=== PATIENT | male | born 1935 | race Caucasian/White ===

== ENCOUNTER 2021-11-03 16:59 | Inpatient (IN) | payer MEDICARE, SELFPAY ==
--- NOTE | ~2021-11-03 | XR_ITS ---
EXAMINATION: XR chest 1V portable DATE: 11/10/2021 05:49 INDICATION: Pneumonia TECHNIQUE: frontal view of the chest was obtained. COMPARISON: Chest radiograph dated 11/09/2021 FINDINGS: Small lung volumes particularly on the right with persistent elevation of the right hemidiaphragm. rspace opacities in the left mid and bilateral lower lung zones. Interval improvement in the more dif fuse interstitial opacities which likely represented pulmonary edema. Cardiomegaly. Venous sternotomy and aortic valve replacement. Unchanged percutaneous cholecystostomy tube. Decrease in the prior pro minent gaseous distention of the stomach. IMPRESSION: 1. Interval improvement in the diffuse bilateral interstitial likely pulmonary edema with residual mo re patchy airspace opacities in the lower lungs which could represent residual pulmonary edema, atele ctasis or pneumonia. 2. Cardiomegaly. Reviewed, dictated and finalized at location A. IMPRESSION: 1. Interval improvement in the diffuse bilateral interstitial likely pulmonary edema with residual more patchy airspace opacities in the lower lungs which cou ld represent residual pulmonary edema, atelectasis or pneumonia. 2. Cardiomegaly.
--- NOTE | ~2021-11-03 | NM_ITS ---
EXAMINATION: NM hepatobiliary w pharm DATE: 11/06/2021 14:11 INDICATION: Acute cholecystitis. COMPARISON: CT 11/03/2021, ultrasound 11/04/2021 TECHNIQUE: 4.9 mCi Tc-99m mebrofenin (Choletec) was administered intravenously. Scintigraphic images of the abdomen were obtained for one hour. Then, 2 mg morphine IV was administered, and imaging was continued for 30 minutes. FINDINGS: There is normal clearance of radiotracer from the blood pool. There is homogeneous tracer u ptake by the liver. Activity progresses to the bowel. There is no activity in the gallbladder. IMPRESSION: 1. Acute cholecystitis. Review of the CT demonstrates a 5 mm gallstone in the cystic duct. Reviewed, dictated and finalized at location A. ULUS TUTOR
--- NOTE | ~2021-11-03 | XR_ITS ---
EXAMINATION: XR chest 2V DATE: 11/03/2021 17:19 INDICATION: Dyspnea with 5 days of hacking cough TECHNIQUE: PA and lateral views of the chest were obtained. COMPARISON: None FINDINGS: Small lung volumes with more prominent elevation the right hemidiaphragm. Airspace opacities in the l eft mid to lower lung zone and at the right upper lung zone. No pleural effusion or pneumothorax. The cardiomediastinal silhouette is within normal limits. Median sternotomy wires and aortic valve repai r. Calcified mediastinal lymph nodes consistent with old granulomatous disease. Colonic interposition below the anterior right hemidiaphragm. Mild degenerative skeletal changes in the spine and at both shoulders. IMPRESSION: 1. Opacities in the left mid to lower and right upper lung zones which could represent atelectasis, p neumonia or mild pulmonary edema. Reviewed, dictated and finalized at location A. ORY FACULTY MEMBER IMPRESSION: 1. Opacities in the left mid to lower and right upper lung zones which could re present atelectasis, pneumonia or mild pulmonary edema.
--- NOTE | ~2021-11-03 | US_ITS ---
EXAMINATION: US perc cholecystostomy w imag DATE: 11/06/2021 17:22 INDICATION: Acute cholecystitis TECHNIQUE: The procedure including the risks and benefits was discussed with the patient. Risks discu ssed included bleeding including hemorrhage and bile peritonitis. Oral and written consent were obtai natalie. The patient was confirmed to be receiving appropriate antibiotic coverage. The skin overlying t he liver and gallbladder was prepped and draped in usual sterile fashion. Anesthetic was administere d with 1% lidocaine subcutaneously. Conscious sedation was provided by the anesthesiology service. An 8.5 Fr catheter was inserted into an anterior intercostal approach into the gallbladder by trocar technique. The metal stiffener and trocar needle were removed, and the pigtail tip was locked. Bile w as aspirated and sent for culture. The catheter was stitched to the skin with suture. There were no i mmediate complications. FINDINGS: The gallbladder is dilated with wall thickening and stones and sludge, consistent with acut e cholecystitis. Ultrasound images demonstrate the catheter within the gallbladder. 20 mL bile was as pirated. Final images show the formed pigtail catheter tip in the gallbladder. IMPRESSION: 1. Successful ultrasound-guided cholecystostomy tube placement. 2. 20 mL bile was sent for aerobic, anaerobic, and fungal cultures. 3. The catheter will be managed by Dr. Sánchez. A catheter cholangiogram may be performed not less than 48 hours after tube placement if clinically indicated to assess cystic duct patency. If cholecystect mahi is not eventually performed and the infectious episode has resolved, the tube may be removed over a guidewire, preferably not less than 3 weeks after placement to allow time for a mature catheter tr act to form to prevent bile leakage and peritonitis. Reviewed, dictated and finalized at location A. SION FIELD INSPECTOR IMPRESSION: 1. Successful ultrasound-guided cholecystostomy tube placement. 2. 20 mL bile was sent for aerobic, anaerobic, and fungal cultures. 3. The catheter will be managed by Dr. Sánchez. A catheter cholangiogram may be pe rformed not less than 48 hours after tube placement if clinically indicated to assess cystic duct patency. If cholecystectomy is not eventually performed and the infectious episode has resolved, the tube may be removed over a guidewire, preferably not less than 3 weeks after placement to allow time for a mature ca theter tract to form to prevent bile leakage and peritonitis.
--- NOTE | ~2021-11-03 | US_ITS ---
EXAMINATION: US abdomen limited EXAM DATE: 11/04/2021 11:51 INDICATION: Cholecystitis, RUQ tenderness. TECHNIQUE: Multiple grayscale and Doppler images of the abdomen right upper quadrant were obtained (b y a technologist who performed the scan) and subsequently reviewed. Correlation is made to CT from . FINDINGS: The pancreatic head and body are normal in appearance. The pancreatic tail is not visualized. The l iver has normal echogenicity and contour. Liver, renal cysts. There is no evidence of intrahepatic biliary duct dilation. Portal venous flow was seen in the hepatopedal, normal direction and has norm al Doppler waveform. No right-sided hydronephrosis. Common bile duct measures 7 mm, which is normal. Gallbladder is moderately distended. There is moder ately edematous gallbladder wall up to 7 mm in thickness. No definite cholelithiasis is identified. IMPRESSION: Distended gallbladder with thickened wall, cholecystitis which could be acute given appea josse on yesterday's CT. Sonographic Mcleod's sign was not specifically demonstrated but patient may be on pain medicine. Reviewed, dictated and finalized at location A. H AUGER OPERATOR IMPRESSION: Distended gallbladder with thickened wall, cholecystitis which coul d be acute given appearance on yesterday's CT. Sonographic Mcleod's sign was n ot specifically demonstrated but patient may be on pain medicine.
--- NOTE | ~2021-11-03 | XR_ITS ---
EXAMINATION: XR chest 1V portable DATE: 11/08/2021 05:30 INDICATION: Pneumonia. TECHNIQUE: A single frontal view of the chest was obtained. COMPARISON: Chest 2 views 11/03/2021, chest CT 11/03/2021 FINDINGS: There is marked elevation of right hemidiaphragm with mild worsening. There are airspace an d interstitial opacities in all lung zones bilaterally. No pleural effusion or pneumothorax. Cardiome jayne is noted. There are changes of aortic valve replacement. A percutaneous cholecystostomy tube is noted. There is gaseous distention of the stomach. IMPRESSION: 1. Worsened diffuse lung disease, likely chronic interstitial lung disease with superimposed pulmonar y edema or pneumonia. 2. Cardiomegaly. Reviewed, dictated and finalized at location A. IMPRESSION: 1. Worsened diffuse lung disease, likely chronic interstitial lung disease with superimposed pulmonary edema or pneumonia. 2. Cardiomegaly.
--- NOTE | ~2021-11-03 | CT_ITS ---
EXAMINATION: CTA chest PE abdomen pel DATE: 11/03/2021 22:03 INDICATION: Dyspnea. Elevated d-dimer. TECHNIQUE: Computed tomography (CT) pulmonary angiogram of the chest was performed with 100 mL Omnipa que-350 intravenous contrast. Additional 3D reconstructions utilizing coronal maximum intensity proje ction (MIP) were performed. CT of the abdomen and pelvis was performed with intravenous contrast util izing the same contrast bolus following a short delay. Automated exposure control and iterative recon struction technique were employed. The dose-length product was 1918.03 mGy-cm. COMPARISON: None FINDINGS: Chest: Good contrast opacification of the pulmonary arteries. There is mild streak artifact from dense contr ast in the superior vena cava and right atrium. Diffuse moderate respiratory motion artifact which de creases sensitivity in some of the segmental pulmonary arteries and renders assessment in many of the smaller subsegmental pulmonary arteries particularly at the lung bases essentially nondiagnostic. No definitive pulmonary embolism. Small lung volumes particularly on the right there is elevation the r ight hemidiaphragm. Peripheral and lower lung predominant groundglass opacities and irregular septal line thickening, mild basilar bronchiectasis but without honeycombing suggesting chronic interstitial fibrosis pattern favoring nonspecific interstitial pneumonia (NSIP). Differential including acute se tting includes mild pulmonary edema and pneumonia although this is considered less likely. No pleural effusion or pneumothorax. Cardiomegaly. Atherosclerotic coronary artery calcific location. Median st ernotomy and aortic valve repair. Thoracic aorta is normal in caliber with no dissection. Mild bilate ral hilar and mediastinal lymphadenopathy which is likely reactive. Abdomen/pelvis: Gallbladder is dilated to 4.9 cm diameter with wall thickening and pericholecystic inflammatory stran ding consistent with acute cholecystitis. No intra or extra hepatic biliary ductal dilation. Liver, s pleen, pancreas, bilateral adrenal glands and left kidney are normal. 6.2 cm cyst at the lower pole o f the right kidney. There are couple diverticula along the ascending and sigmoid colon without adjace nt inflammatory change to suggest diverticular colitis. Small bowel and appendix are normal. Prostato megaly. Bladder is normal. No free intraperitoneal gas or fluid. No pathologically enlarged abdominal or pelvic lymphadenopathy. Severe lumbar spondylosis. IMPRESSION: 1. Acute cholecystitis. 2. No evident pulmonary embolism although sensitivity is significantly decreased in the smaller subse gmental pulmonary arteries due to respiratory motion. 3. Small lung volumes with peripheral and lower lung predominant lung disease most likely an estimate . Pattern chronic interstitial fibrosis with differential including less likely mild pulmonary edema or pneumonia. 4. Cardiomegaly. Reviewed, dictated and finalized at location A. ACCOUNT DIRECTOR IMPRESSION: 1. Acute cholecystitis. 2. No evident pulmonary embolism although sensitivity is significantly decrease d in the smaller subsegmental pulmonary arteries due to respiratory motion. 3. Small lung volumes with peripheral and lower lung predominant lung disease m ost likely an estimate. Pattern chronic interstitial fibrosis with differential including less likely mild pulmonary edema or pneumonia. 4. Cardiomegaly.
[2021-11-03 17:04] VITALS: BP 117/57; PULSE 118; RESP 24; TEMP 37.2; O2SAT 94
--- NOTE | 2021-11-03 17:07 | ECG_ITS ---
Measurements Intervals Hart Rate: 111 P: 25 WA: 150 QRS: -17 QRSD: 96 T: 75 QT: 321 QTc: 437 Interpretive Statements SINUS TACHYCARDIA LEFT VENTRICULAR HYPERTROPHY AND ST-T CHANGE [VOLTAGE CRITERIA PLUS ST/T ABNORMALITY] ABNORMAL ECG NO PREVIOUS ECG AVAILABLE FOR COMPARISON Electronically Signed On 11-04-2021 13:07:28 FIRMWARE SOFTWARE VERIFICATION ENGINEER by Harry Vallejo M.D.
[2021-11-03 17:25] LABS: Hematocrit 41.1 % (42.0-52.0); Hemoglobin 13.8 g/dL (14.0-18.0); Mean Corpuscular HGB Conc 33.6 g/dl (32-36); Mean Corpuscular Hemoglobin 30.1 pg (26-34); Mean Corpuscular Volume 89.7 fl (80-100); Platelet Count Result 196 k/mm3 (150-375); Red Blood Count 4.58 M/mm3 (4.6-6.20); White Blood Count 17.5 K/mm3 (4.5-10.0)
[2021-11-03 17:38] LABS: Alanine Aminotransferase 18 U/L (4-50); Albumin Level 4.2 g/dL (3.5-5.1); Alkaline Phosphatase 96 U/L (38-126); Anion Gap 7 mmol/L (8-16); Aspartate Amino Transferase 41 U/L (17-59); Blood Urea Nitrogen 23 mg/dL (9-20); Calcium 8.7 mg/dL (8.4-10.2); Carbon Dioxide 27 mmol/L (22-30); Chloride 97 mmol/L (98-107); Estimated CRCL calculation 28 ml/min; Estimated Glomerular Filt Rate 41; Glucose 189 mg/dL (65-110); Potassium 3.8 mmol/L (3.4-5.0); Sodium 131 mmol/L (137-145)
[2021-11-03 17:46] LABS: Band Neutrophils Percent 5 % (0-6); Lymphocytes Absolute Manual 1.92 K/mm3 (1.1-4.5); Monocytes Absolute Manual 1.05 K/mm3 (0.1-0.90); Monocytes Percent Manual 6 % (3-9); Neutrophils Absolute Manual 14.52 K/mm3 (1.3-6.7); Neutrophils Percent Manual 78 % (46-73); Total Cells Counted 100
[2021-11-03 17:47] LABS: Platelet Estimate Adequate (Adequate)
[2021-11-03 17:51] LABS: D Dimer 4.17 ug/mL (<0.48)
[2021-11-03 19:11] VITALS: BP 109/61; PULSE 95; RESP 20; TEMP 37.8; O2SAT 93
[2021-11-03] MEDS: ONDANSETRON INJ 4 MG/2 ML VIAL IV PUSH (19:58)
[2021-11-03] MEDS: SODIUM CHLORIDE 0.9% IV 500 ML 999 ML IV CONT (20:01)
--- NOTE | 2021-11-03 20:01 | ED.GENADULT ---
HPI - General Adult General Chief complaint: Shortness of Breath/Dyspnea Stated complaint: SOB Time Seen by Provider: 11/03/21 19:10 Source: patient Mode of arrival: ambulatory Limitations: no limitations History of Present Illness HPI narrative: This is an 86 year old male who presents for evaluation of fever, cough and weakness. Patient states he started feeling unwell this past Tuesday. He states he developed upper abdominal pain on Tuesday after eating large salad and large bowl of fettuccine. His abdominal pain has resolved but he has developed cough and fever. His cough is nonproductive and he has fever 100 F in ER. Patient states he is only able to eat certain things because not much taste good. He has nausea but denies vomiting or diarrhea. He also denies chest pain, headache. He denies sick contacts. He received his COVID booster August 2021. Related Data Home Medications Medication Instructions Recorded Confirmed alprazolam 1 mg PO HS 11/03/21 11/04/21 atorvastatin 20 mg PO DAILY 11/03/21 11/03/21 metoprolol tartrate 12.5 mg PO BID 11/03/21 11/03/21 quinapril 20 mg PO DAILY 11/03/21 11/03/21 trazodone 200 mg PO HS 11/03/21 11/04/21 Allergies Allergy/AdvReac Type Severity Reaction Status Date / Time No Known Allergies Allergy Verified 11/03/21 19:14 Review of Systems Review of Systems: All systems reviewed & are unremarkable except as noted in HPI and below Constitutional: Constitutional: Reports chills and Reports fever(s) ENT: Reports nasal congestion and Denies sore throat Cardiovascular: Cardiovascular: Denies chest pain Respiratory: Respiratory: Reports cough Gastrointestinal: Gastrointestinal: Reports abdominal pain, Denies diarrhea, Reports nausea and Denies vomiting Musculoskeletal: Musculoskeletal: Denies back pain Neurologic: Denies headache(s) [facility] Past Medical History Medical History (Updated 11/04/21 @ 05:58 by Loli Wakefield MD) Essential hypertension Hyperlipidemia Insomnia Surgical History Surgical History (Updated 11/03/21 @ 20:01 by Loli Wakefield MD) H/O aortic valve replacement Social History Social History (Updated 11/03/21 @ 20:01 by Loli Wakefield MD) Smoking status: Never smoker Second hand tobacco smoke exposure: No Alcohol intake: never Substance use: never Substance use type: does not use Spiritual care concerns: No Exam Const: General: no acute distress and alert Orientation/consciousness: patient oriented x3 Eyes: EOM: EOMs intact bilaterally Chest: Chest palpation & inspection: normal inspection of the chest Resp: Effort & Inspection: normal respiratory effort, not labored and not tachypneic Auscultation: crackles and rales bilateral Cardio: Rate: regular rate Rhythm: regular rhythm Heart sounds: no murmurs GI: GI Palp: Yes Soft to palpation, Yes Tenderness to palpation present (GI) (epigastric), No Guarding due to palpation present (GI) and No Rigid due to palpation Auscultation: normal bowel sounds Back/Spine/Pelvis: Back: no CVA tenderness Skin: General skin exam: normal color Rashes: no rashes Neuro: General: patient oriented x3, moves all extremities and CN's II-XI intact bilaterally Extrem: General: normal to inspection Psych: Mental Status: mental status grossly normal Affect: normal affect Course Reevaluation(s) Reevaluation #1: I discussed with patient that he has been found to have acute cholecystitis as cause of his upset stomach . It is unclear if he has pneumonia but he is being started on antibiotics that will cover both. Dr. Mcmullen accepts patient as inpatient. Dr. Espinal agrees to consult. Request US for AM. Date: 11/04/21 Time: 00:30 Reevaluation #2: Patient denies sob. He is not wheezing on exam Date: 11/04/21 Time: 01:30 Vital Signs Vital signs: Vital Signs Temperature 99.0 F 11/03/21 17:04 Pulse Rate 118 H 11/03/21 17:04 Respiratory Rate 24 H 11/03
[2021-11-03 20:15] LABS: Lactic Acid Reflex 1.6 mmol/L (0.7-2.1); Lipase 39 U/L (23-300); Magnesium 1.9 mg/dL (1.6-2.3)
[2021-11-03 20:18] LABS: INR 1.3; Partial Thromboplastin Time 31.5 SECONDS (22.3-36.8); Prothrombin Time 15.7 Seconds (11.1-14.7)
[2021-11-03 20:31] LABS: NT Pro B Type Natriuretic Pept 1840 pg/mL (5-100); Troponin I 0.057 ng/mL (0.000-0.034)
[2021-11-03 20:41] LABS: SARS-CoV-2 RNA PCR Negative
[2021-11-03] MEDS: SODIUM CHLORIDE 0.9% IV 1,000 ML 999 ML IV CONT (21:00)
[2021-11-03 21:01] VITALS: BP 98/57; PULSE 81; RESP 18; O2SAT 99
[2021-11-03 21:38] LABS: Add Urine Microscopic? YES; Appearance Urine Cloudy (Clear); Bacteria Urine Trace /hpf; Bilirubin Urine Negative (Negative); Blood Urine 1+ (Negative); Color Urine Amber (Yellow); Glucose Urine UA Negative (Negative); Ketones Urine Negative (Negative); Leukocyte Esterase Ur Negative LEU/UL (Negative); Mucus Urine Rare /lpf; Nitrate Urine Negative (Negative); Protein Urine 2+ mg/dL (Negative); Specific Grav Ur 1.019 (1.001-1.035); Squamous Epithelial Cell Urine Occasional /hpf (Few); WBC Urine 0-3 /hpf
[2021-11-03 22:46] VITALS: BP 123/84; PULSE 76; RESP 20; O2SAT 99
[2021-11-03 23:24] VITALS: BP 132/56; PULSE 82; RESP 18; O2SAT 99
[2021-11-03 23:25] VITALS: PULSE 82
[2021-11-04] VITALS (34 sets, daily range): BP systolic 103–139; BP diastolic 49–87; PULSE 80–137; RESP 18–32; TEMP 36.1–38.1; O2SAT 86–99; BMI 30.7
--- NOTE | 2021-11-04 00:30 | PC.NURSE ---
ASCENCION Wakefield made aware of patient condition and SOB. No new orders given. Will continue to monitor
[2021-11-04] MEDS: SODIUM CHLORIDE 0.9% IV 1,000 ML 75 ML IV CONT (02:42)
--- NOTE | 2021-11-04 02:44 | ADMGEN ---
This patient, Reggie Ortiz, was admitted to IMU Room 232-01 on 11/04/2021 at 0145. Patient/family oriented to hospital policies and general routines including ID bracelet, bed and alarms, visiting hours, pain management, procedures, bathroom and other care routines, personal items, smoking policy, room service/diet, and visiting hours. Information on how to activate the Rapid Response Team has been discussed. Patient/Family are encouraged to report perceived risks to care and to ask questions if they do not understand what they are told or what they should do.
--- NOTE | 2021-11-04 02:50 | PM.IMHP ---
H&P: HPI History of Present Illness Date/Time: 11/04/21 02:50 Chief Complaint: Multiple complaints Narrative: 86-year-old male with past medical history of hypertension, hyperlipidemia and insomnia who presented to the ER with fever, cough and weakness. The majority of the patient's history was obtained from ER records as at the time of my evaluation the patient was confused, rambling and giving variable responses. The patient started feeling ill on Tuesday. He reported right upper quadrant abdominal pain after eating a large solid with a large amount of a thallium dressing and a bowl of pasta with white sauce. His abdominal pain lasted for couple days and resolved. He told me at the time of my evaluation that he has been having a cough since he received his Moderna booster approximately 2 weeks ago. He told the ER doctor that he has started having a cough a few days after started having abdominal pain. He told me that his abdominal pain was associated with stretching was muscles from coughing. He has chronic nasal congestion. He denies any postnasal drip or sore throat. He denies any recent ill contacts. He has had a decreased appetite and states food does not taste good. He has been having some nausea but no vomiting. He denies any changes in his bowel habits. 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 He reports being relatively healthy and active. He has noticed increased wheezing it is unclear how long he has been having wheezing. Review of Systems Review of Systems: 12 systems were reviewed with pertinent positives and negatives per HPI. Except as documented in the HPI, all other systems were reviewed and are negative. [facility] Past Medical History Medical History (Updated 11/04/21 @ 06:39 by Lucrecia Mcmullen DO) Essential hypertension Hyperlipidemia Insomnia Surgical History Surgical History (Updated 11/03/21 @ 20:01 by Loli Wakefield MD) H/O aortic valve replacement Family History Family History Other Unknown family medical history Social History Social History (Updated 11/04/21 @ 06:32 by Lucrecia Mcmullen DO) Social History: Reason lives at home with his of 63 years. He is a lifelong nonsmoker and does not drink alcohol or use illicit substances. 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 Code status: The patient is unsure if he would want cardiopulmonary resuscitation. He is not discuss this with his is he does not think it will ever happened to him. Smoking status: Never smoker Second hand tobacco smoke exposure: No Alcohol intake: never Substance use: never Substance use type: does not use Spiritual care concerns: No Meds Home Medications and Allergies Home Medications Medication Instructions Recorded Confirmed Type alprazolam 1 mg PO HS 11/03/21 11/04/21 History atorvastatin 20 mg PO DAILY 11/03/21 11/03/21 History metoprolol tartrate 12.5 mg PO BID 11/03/21 11/03/21 History quinapril 20 mg PO DAILY 11/03/21 11/03/21 History trazodone 200 mg PO HS 11/03/21 11/04/21 History Allergies Allergy/AdvReac Type Severity Reaction Status Date / Time No Known Allergies Allergy Verified 11/03/21 19:14 Vital Signs Vital Signs - 24 hr 11/03/21 17:04 11/03/21 19:11 11/03/21 21:01 Temperature 99.0 F 100.0 F H Pulse Rate 118 H 95 81 Respiratory Rate 24 H 20 18 Blood Pressure 117/57 L 109/61 98/57 L Pulse Oximetry 94 93 99 11/03/21 22:46 11/03/21 23:24 11/03/21 23:25 Temperature Pulse Rate 76 82 82 Respiratory Rate 20 18 Blood Pressure 123/84 132/56 L Pulse Oximetry 99 99 11/04/21 00:28 11/04/21 00:30 11/04/21 01:20 Temperature Pulse Rate 112 H 88 Respiratory Rate 24 H 24 H Blood Pressure 139/64 Pulse Oximetry 92 92 86 L 11/04/21 01:25 11/04/21 01:39 11/04/21 02:03 Temperature 98.6 F 97 F L Pulse
[2021-11-04] MEDS: LORazepam INJ (*CRX) 2 MG/ML VIAL 0.5 MG IV PUSH (03:04)
[2021-11-04 05:30] LABS: Troponin I 0.052 ng/mL (0.000-0.034)
[2021-11-04 06:16] LABS: Alveolar/Arterial O2 Gradient 89.4 mmHg; Base Excess ABG -1.1 mEq/l (+/-2.0); Carboxyhemoglobin 0.4 % THb (0-2.0); Fractional Inspired Oxygen 32 %; HCO3 ABG 23.6 mEq/l (22.0-26.0); Methemoglobin ABG 0.4 %THb (0-1.5); Oxygen Content ABG 17.9 %vol (16.0-22.0); Oxygen Saturation ABG 97.1 % (95.0-100.0); Oxyhemoglobin 96.1 % THb (90.0-100.0); PCO2 ABG 39.2 mmHg (35.0-45.0); PO2 ABG 92.9 mmHg (80.0-100.0); Reduced Hemoglobin 3.1 %THb (0-5.0); Total Hemoglobin 13.2 g/dL (12.0-18.0); pH ABG 7.397 (7.350-7.450)
[2021-11-04 06:17] LABS: Device NASAL CANNULA; Modified Allen's Test Pass; Site Drawn RIGHT RADIAL
[2021-11-04] MEDS: DOXYCYCLINE 100 MG/NS 100 ML 100 MG/100 ML BAG IVPB ×2 (08:20→17:37)
[2021-11-04 08:48] LABS: Basophils Absolute Auto 0.1 K/mm3 (0.0-0.1); Basophils Percent Auto 0.4 % (0.2-1.2); Eosinophils Percent Auto 0.3 % (0-4.4); Hematocrit 36.2 % (42.0-52.0); Hemoglobin 11.8 g/dL (14.0-18.0); Immature Granulocyte Absolute 0.07 K/mm3 (0.00-0.031); Immature Granulocyte Percent A 0.5 % (0-0.5); Lymphocytes Absolute Auto 0.77 K/mm3 (0.9-3.2); Lymphocytes Percent Auto 5.6 % (18.3-44.2); Mean Corpuscular HGB Conc 32.6 g/dl (32-36); Mean Corpuscular Hemoglobin 30.3 pg (26-34); Mean Corpuscular Volume 92.8 fl (80-100); Monocytes Percent Auto 7.1 % (2.6-8.5); Neutrophils Absolute Auto 11.9 K/mm3 (1.3-6.7); Neutrophils Percent Auto 86.1 % (45.5-73.1); Platelet Count Result 155 k/mm3 (150-375); Red Cell Distribution Width 14.2 % (11.5-14.5); White Blood Count 13.8 K/mm3 (4.5-10.0)
[2021-11-04 08:49] LABS: Glucose Point of Care 115 mg/dl (65-105)
[2021-11-04] MEDS: ALBUTEROL SULFATE NEB 2.5 MG/0.5 ML INH 5 MG INHALATION ×3 (09:08→20:30)
[2021-11-04] MEDS: IPRATROPIUM BR 0.02% INH SOLN 0.5 MG/2.5 ML VIAL INHALATION ×3 (09:08→20:30)
[2021-11-04 10:42] LABS: Alanine Aminotransferase 16 U/L (4-50); Albumin Level 3.3 g/dL (3.5-5.1); Alkaline Phosphatase 88 U/L (38-126); Anion Gap 6 mmol/L (8-16); Aspartate Amino Transferase 40 U/L (17-59); Bilirubin,Total 1.5 mg/dL (0.2-1.3); Blood Urea Nitrogen 27 mg/dL (9-20); Calcium 7.8 mg/dL (8.4-10.2); Carbon Dioxide 25 mmol/L (22-30); Chloride 101 mmol/L (98-107); Estimated CRCL calculation 29 ml/min; Estimated Glomerular Filt Rate 41; Glucose 119 mg/dL (65-110); Potassium 3.7 mmol/L (3.4-5.0); Sodium 132 mmol/L (137-145)
--- NOTE | 2021-11-04 11:34 | PM.CNCAR ---
Assessment and Plan Assessment and plan (1) Atrial fibrillation with RVR: Code(s): I48.91 - Unspecified atrial fibrillation Status: Acute Assessment and Plan: Patient with brief, asymptomatic paroxysm atrial fibrillation. Resume beta-brianna therapy. If more sustained episodes more aggressive AV heather blocking agent such as diltiazem infusion, IV metoprolol may be required. His sustained atrial fibrillation systemic anticoagulation as permitted given cholecystitis and management plans for surgery. CHADS2 Vasc score 4. Most likely exacerbated due to acute illness, advanced age and history of postoperative atrial fibrillation post AVR 2017. Check TSH, monitor potassium magnesium. Monitor volume status. 2D echocardiogram. (2) Elevated troponin: Code(s): R77.8 - Other specified abnormalities of plasma proteins Status: Acute Assessment and Plan: Mild elevation, flat curve not secondary to acute coronary syndrome but type 2 infarction in setting of acute illness, renal failure, advanced age. On left heart catheterization preoperatively 2016 he had no significant coronary artery disease. (3) Acute cholecystitis: Code(s): K81.0 - Acute cholecystitis Status: Acute Assessment and Plan: Per surgical service. Continue IV antibiotics. Recommendations as appropriate with regard to preoperative surgical risk once management plans from surgery are available. (4) H/O aortic valve replacement: Code(s): Z95.2 - Presence of prosthetic heart valve Status: Acute Assessment and Plan: Check 2D echocardiogram. (5) Renal insufficiency: Code(s): N28.9 - Disorder of kidney and ureter, unspecified Status: Acute Assessment and Plan: Monitor renal function closely. Baseline unclear at this time. Judicious hydration. (6) Metabolic encephalopathy: Code(s): G93.41 - Metabolic encephalopathy Status: Acute Assessment and Plan: Per primary service. Continue antibiotics History of Present Illness History of Present Illness Consult date/time: Date of service: 11/04/21 11:34 Cardiology consultation at the request of Waleska Espinoza of the [facility] service for opinion regarding SVT and preoperative cardiovascular risk assessment. Requesting physician: Waleska Espinoza PA-C Consult reason: pre-op evaluation and Other (SVT) Reason For Visit: acute cholecystitis, sepsis, dehydration Narrative: Patient is a pleasant 86-year-old male with history of severe aortic stenosis post bioprosthetic aortic valve replacement not, history of postoperative atrial fibrillation, pulmonary hypertension hypertension, hyperlipidemia who presented to the ER with complaints of cough, fevers weakness and abdominal pain. Abdominal pain was in the right upper quadrant. He was noted to be somewhat confused at presentation. Per report patient had eaten tie-in pasta and shortly after that began to have more severe abdominal pain which persisted. He has been coughing a lot as well but denied chest pain. He denies shortness of breath. CT was performed which revealed acute cholecystitis and right upper quadrant ultrasound revealed distended gallbladder with thickening and cholecystitis. Patient has also been started on antibiotics for possible pneumonia. He continues to cough intermittently. We have been asked to see this patient as he was having intermittent runs of brief atrial fibrillation with rapid ventricular response in which he was otherwise asymptomatic and possible preoperative cardiovascular risk assessment. Patient has been relatively hemodynamically stable, started on IV fluids. Creatinine 1.6 at presentation mild, flat troponin elevation 0.057, 0.052, BNP minimally elevated at 1840. Patient denies palpitations or known history of atrial fibrillation although per records he had postoperative atrial fibrillation after his aortic valve replacement December 14, 2017. Re
[2021-11-04 11:53] LABS: Glucose Point of Care 111 mg/dl (65-105)
--- NOTE | 2021-11-04 13:21 | ECG_ITS ---
Measurements Intervals [place] Rate: 124 P: AR: 0 QRS: 4 QRSD: 91 T: 84 QT: 295 QTc: 424 Interpretive Statements ATRIAL FIBRILLATION WITH RAPID VENTRICULAR RESPONSE NONSPECIFIC ST & T-WAVE ABNORMALITY ABNORMAL ECG COMPARED TO ECG 11/03/2021 17:13:11 ATRIAL FIBRILLATION NOW PRESENT T-WAVE ABNORMALITY NOW PRESENT Electronically Signed On 11-04-2021 16:43:25 MEDICAL SURGERY NURSE by Harry Vallejo M.D.
--- NOTE | 2021-11-04 13:41 | PM.IMPN ---
Progress Note: A&P Assessment and Plan (1) Sepsis: Qualifiers: Acute respiratory failure type: with hypoxia Sepsis acute organ dysfunction status: with acute organ dysfunction Sepsis type: sepsis due to unspecified organism Severe sepsis acute organ dysfunction type: acute respiratory failure Severe sepsis shock status: without septic shock Qualified Code(s): A41.9 - Sepsis, unspecified organism; R65.20 - Severe sepsis without septic shock; J96.01 - Acute respiratory failure with hypoxia Code(s): A41.9 - Sepsis, unspecified organism Status: Acute Assessment and Plan: -Patient has sepsis given his respiratory symptoms is most likely due to pneumonia. -Patient was started on Zosyn initially from the ER due to CT findings concerning for acute cholecystitis. However, patient developed acute hypoxic respiratory failure upon transfer to the intermediate unit and had increasing wheezing and tachypnea. Thusly, I feel pneumonia is more likely especially in the absence of significant right upper quadrant pain. -Blood cultures are pending. -Will continue Zosyn will add antibiotic coverage with doxycycline. -Given the patient's significant wheezing will add scheduled nebulizers with albuterol and Atrovent. -Will hold off on giving steroid therapy given patient's fever and sepsis. -Will check urine Legionella and urine pneumococcal antigen. -pt still NPO pending general surgery consult. Has IVF going at 125/hr. (2) Acute cholecystitis: Code(s): K81.0 - Acute cholecystitis Status: Acute Assessment and Plan: -Given possible acute cholecystitis noted on CT scan right upper quadrant ultrasound was ordered. -RUQ US shows distended gallbladder with thickened wall, cholecystitis which could be acute -The patient is currently NPO in general surgery has been consulted. -On exam the patient has no abdominal pain at this time. (3) Nonspecific interstitial pneumonia: Code(s): J84.89 - Other specified interstitial pulmonary diseases Status: Acute Assessment and Plan: -CT shows pattern of chronic interstitial fibrosis with differential including less likely mild pulmonary edema or pneumonia. -given clinical picture of fever/cough he is being covered with doxycycline (4) Renal insufficiency: Code(s): N28.9 - Disorder of kidney and ureter, unspecified Status: Acute Assessment and Plan: -Patient does have some renal insufficiency it is unclear if this is acute kidney injury versus chronic kidney disease. -Based on BUN creatinine ratio leaning more toward this being chronic in nature. -Will continue IV fluid hydration and monitor BMP closely (5) Elevated troponin: Code(s): R77.8 - Other specified abnormalities of plasma proteins Status: Acute Assessment and Plan: -Patient did have mildly elevated troponin but troponins are actually trending downward. -There is no evidence of acute cardiac ischemia. -Patient may have some mild troponin leak due to sepsis in the setting of chronic kidney disease and history of valve replacement. (6) Hypoxia: Code(s): R09.02 - Hypoxemia Status: Acute Assessment and Plan: -secondary to pneumonia vs sepsis -was on oxygen on admission but is now on RA (7) Metabolic encephalopathy: Code(s): G93.41 - Metabolic encephalopathy Status: Acute Assessment and Plan: -At the time of my evaluation the patient was mildly encephalopathic. -It is unclear if this was due to Ativan administration verses acute sepsis. -Will hold any further sedating medications and treat underlying infection. (8) Atrial fibrillation with RVR: Code(s): I48.91 - Unspecified atrial fibrillation Status: Acute Assessment and Plan: -notified by RN this afternoon that he was in afib rvr on tele -confirmed with EKG -cardiology consulted
--- NOTE | 2021-11-04 13:42 | PC.NURSE ---
Pt noted to be having increase heart rate on gambling monitor. Upon asses rhythm by RN, heart rhythm appears to be in SVT, Afib and Aflutter. 12 lead EKG obtained and read as Afib RVR. EZEKIEL Dykes notified, with new orders to inform manager port. Dr Garay notified of EKG results of Afib RVR. New order for 5mg IVP Lopressor x1.
[2021-11-04] MEDS: METOPROLOL TARTRATE INJ 5 MG/5 ML VIAL IV PUSH (13:49)
--- NOTE | 2021-11-04 14:56 | PM.CNGS ---
Assessment and Plan Assessment and plan (1) Acute cholecystitis: Code(s): K81.0 - Acute cholecystitis Status: Acute Assessment and Plan: CTA suggests findings consistent with acute cholecystitis but no definitive cholelithiasis seen. RUQ ultrasound ordered today and also suggested gallbladder wall thickening and distention, but no cholelithiasis seen. He seems to be improving with conservative management and his abdominal pain has completely resolved. He is still mildly tender in the epigastric area, but again improved. WBC trending down to 13,800. The patient is a high risk surgical candidate given his age, co-morbidities, current cardiac issues, and sepsis. We would recommend to continue treating him conservatively for now with broad-spectrum IV antibiotics, IV fluids, and close monitoring. We could consider a HIDA scan in the future to evaluate for cystic duct patency, but we will decide depending on how he progresses. If he stops responding to conservative measures, we could consider percutaneous placement of a cholecystostomy tube in Radiology. Will allow him to try clear liquids tonight after Dr. Espinal's evaluation if he agrees. Thank you for allowing us to see the patient in consultation and we will continue to follow along with you. (2) Sepsis: Code(s): A41.9 - Sepsis, unspecified organism Status: Acute Assessment and Plan: Criteria met on admission with leukocytosis, tachycardia, and fever in the source of infection. Source felt to be pulmonary vs gallbladder. See plan above. Continue broad-spectrum IV antibiotics and IV fluid resuscitation. Blood cultures pending. Monitor labs. (3) Atrial fibrillation with RVR: Code(s): I48.91 - Unspecified atrial fibrillation Status: Acute Assessment and Plan: Afib RVR once in IMU. Has a history of postoperative afib with his AVR. Beta brianna was continued. Cardiology following and managing. (4) Hypoxia: Code(s): R09.02 - Hypoxemia Status: Acute Assessment and Plan: Hypoxia once admitted and felt that he may have pneumonia. Currently only on 1L O2. IV Doxycycline was added to antibiotic coverage. Management per Hospitalist. (5) Elevated troponin: Code(s): R77.8 - Other specified abnormalities of plasma proteins Status: Acute Assessment and Plan: Mildly elevated with downward trend. Cardiology consulted and felt this is likely related to type 2 infarction. (6) Renal insufficiency: Code(s): N28.9 - Disorder of kidney and ureter, unspecified Status: Acute Assessment and Plan: Creatinine 1.6. Acute vs chronic. Continue IV fluids, monitor labs. Additional Plan I have discussed the patient's case and plan of care with Dr. Espinal. History of Present Illness Consult details Consult date: 11/04/21 Reason for consult: other (Possible acute cholecystitis, sepsis) Requesting physician: Loli Wakefield MD Narrative: This is an 86-year-old male with a history of hypertension and hyperlipidemia, who presented to the ER last night with complaints of abdominal pain, fever, and cough. The patient reports that on Tuesday night, four days ago, he had eaten a large salad with [place]an dressing and fettuccine cesar for dinner. By the time he laid down for bed, he reports an onset of epigastric abdominal pain. This pain worsened throughout the night and kept him from sleeping. This continued for the next few days. He was unable to eat anything more than a few popsicles and bill crackers over the next few days. He denies any nausea or vomiting. He reports a fever over the past 2-3 days that got as high as 102F yesterday. He also reports that he has had a dry persistent cough with wheezing over the past 3-4 months. He was given azithromycin for this at some point and felt it improved, but never truly resolved. They were unsure if his fever was due to his cough, and his called his PCP yesterday reg
--- NOTE | 2021-11-04 15:02 | PC.NURSE ---
Spoke with Dr. Vallejo regarding patient's elevated heart rate. Pt still anywhere from low 100's to 150's. New order to start Diltazem drip at 5mg/hr.
[2021-11-04] MEDS: dilTIAZem 100 MG/100 ML 100 MG/100 ML BAG IV CONT (15:25)
[2021-11-04 16:55] LABS: Glucose Point of Care 109 mg/dl (65-105)
[2021-11-04] MEDS: SODIUM CHLORIDE 0.9% IV 1,000 ML 125 ML IV CONT (17:38)
[2021-11-04 20:19] LABS: Glucose Point of Care 202 mg/dl (65-105)
[2021-11-04] MEDS: traZODone HCL 50 MG TABLET 200 MG PO (20:54)
[2021-11-04] MEDS: METOPROLOL TARTRATE 12.5 MG TABLET PO (20:55)
[2021-11-04] MEDS: ALPRAZolam (*CRX) 0.5 MG TABLET 1 MG PO (20:55)
[2021-11-05] VITALS (27 sets, daily range): BP systolic 110–125; BP diastolic 53–64; PULSE 78–98; RESP 18–24; TEMP 36.3–37.2; O2SAT 92–95
[2021-11-05] MEDS: dilTIAZem 100 MG/100 ML 100 MG/100 ML BAG 10 MG IV CONT ×2 (00:30→13:36)
[2021-11-05] MEDS: ALBUTEROL SULFATE NEB 2.5 MG/0.5 ML INH 5 MG INHALATION ×4 (02:15→20:23)
[2021-11-05] MEDS: IPRATROPIUM BR 0.02% INH SOLN 0.5 MG/2.5 ML VIAL INHALATION ×4 (02:15→20:23)
[2021-11-05] MEDS: SODIUM CHLORIDE 0.9% IV 1,000 ML 125 ML IV CONT (04:00)
[2021-11-05 04:27] LABS: Basophils Percent Auto 0.3 % (0.2-1.2); Eosinophils Percent Auto 0.2 % (0-4.4); Hematocrit 35.9 % (42.0-52.0); Hemoglobin 11.5 g/dL (14.0-18.0); Immature Granulocyte Absolute 0.07 K/mm3 (0.00-0.031); Immature Granulocyte Percent A 0.6 % (0-0.5); Lymphocytes Absolute Auto 1.37 K/mm3 (0.9-3.2); Lymphocytes Percent Auto 11.2 % (18.3-44.2); Mean Corpuscular Hemoglobin 30.4 pg (26-34); Mean Platelet Volume 11.5 fl (7.4-10.4); Monocytes Absolute Auto 0.9 K/mm3 (0.1-0.6); Neutrophils Absolute Auto 9.9 K/mm3 (1.3-6.7); Neutrophils Percent Auto 80.7 % (45.5-73.1); Platelet Count Result 159 k/mm3 (150-375); Red Blood Count 3.78 M/mm3 (4.6-6.20); Red Cell Distribution Width 14.3 % (11.5-14.5); White Blood Count 12.2 K/mm3 (4.5-10.0)
[2021-11-05 04:43] LABS: Potassium 3.4 mmol/L (3.4-5.0)
[2021-11-05 04:57] LABS: Alanine Aminotransferase 17 U/L (4-50); Alkaline Phosphatase 98 U/L (38-126); Anion Gap 7 mmol/L (8-16); Aspartate Amino Transferase 35 U/L (17-59); Bilirubin,Total 1.6 mg/dL (0.2-1.3); Blood Urea Nitrogen 26 mg/dL (9-20); Calcium 7.2 mg/dL (8.4-10.2); Carbon Dioxide 21 mmol/L (22-30); Chloride 105 mmol/L (98-107); Estimated CRCL calculation 27 ml/min; Estimated Glomerular Filt Rate 38; Glucose 182 mg/dL (65-110); Lipase 61 U/L (23-300); Sodium 133 mmol/L (137-145)
[2021-11-05] MEDS: DOXYCYCLINE 100 MG/NS 100 ML 100 MG/100 ML BAG IVPB ×2 (05:04→18:07)
[2021-11-05 08:21] LABS: Glucose Point of Care 172 mg/dl (65-105)
[2021-11-05] MEDS: METOPROLOL TARTRATE 12.5 MG TABLET PO (08:24)
[2021-11-05] MEDS: lisinopriL 20 MG TABLET PO (08:24)
[2021-11-05] MEDS: ATORVASTATIN 20 MG TABLET PO (08:24)
--- NOTE | 2021-11-05 09:31 | PM.IMPN ---
Progress Note: A&P Assessment and Plan (1) Atrial fibrillation with RVR: Code(s): I48.91 - Unspecified atrial fibrillation Status: Acute (2) H/O aortic valve replacement: Code(s): Z95.2 - Presence of prosthetic heart valve Status: Acute (3) PSVT (paroxysmal supraventricular tachycardia): Code(s): I47.1 - Supraventricular tachycardia Status: Acute (4) Metabolic encephalopathy: Code(s): G93.41 - Metabolic encephalopathy Status: Acute (5) Sepsis: Code(s): A41.9 - Sepsis, unspecified organism Status: Acute (6) Hypoxia: Code(s): R09.02 - Hypoxemia Status: Acute (7) Elevated troponin: Code(s): R77.8 - Other specified abnormalities of plasma proteins Status: Acute (8) Renal insufficiency: Code(s): N28.9 - Disorder of kidney and ureter, unspecified Status: Acute (9) Nonspecific interstitial pneumonia: Code(s): J84.89 - Other specified interstitial pulmonary diseases Status: Acute (10) Acute cholecystitis: Code(s): K81.0 - Acute cholecystitis Status: Acute Additional Plan Patient has sepsis given his respiratory symptoms is most likely due to pneumonia. Patient was started on Zosyn initially from the ER due to CT findings concerning for acute cholecystitis. However, patient developed acute hypoxic respiratory failure upon transfer to the intermediate unit and had increasing wheezing and tachypnea. Thusly, I feel pneumonia is more likely especially in the absence of significant right upper quadrant pain. Blood cultures are pending. Will continue Zosyn will add antibiotic coverage with doxycycline. Given the patient's significant wheezing will add scheduled nebulizers with albuterol and Atrovent. Will hold off on giving steroid therapy given patient's fever and sepsis. Will check urine Legionella and urine pneumococcal antigen. Given possible acute cholecystitis noted on CT scan right upper quadrant ultrasound has been ordered. The patient is currently NPO in general surgery has been consulted. On exam the patient has no abdominal pain at this time. Patient does have some renal insufficiency it is unclear if this is acute kidney injury versus chronic kidney disease. Based on BUN creatinine ratio leaning more toward this being chronic in nature. Will continue IV fluid hydration and repeat BMP in a.m.. Patient did have mildly elevated troponin but troponins are actually trending downward. There is no evidence of acute cardiac ischemia. Patient may have some mild troponin leak due to sepsis in the setting of chronic kidney disease and history of valve replacement. At the time of my evaluation the patient was encephalopathic. It is unclear if this was due to Ativan administration verses acute sepsis. Will hold any further sedating medications and treat underlying infection. NPO at [place] HIDA scan in am pain meds held in am BB added per cardio heparin gtt until HIDA results discussed w surgery Subjective Date/time seen: 11/05/21 09:31 doing ok still w pain Exam Narrative: General: No acute distress, obese HEENT: NCAT mucous membranes are moist EOMI Respiratory: Crackles anteriorly, end-expiratory wheezing posteriorly Cardiovascular: RRR S1S2 Gastrointestinal: Soft, TTP to palpation in RUQ, nondistended, no rebound or guarding Skin: No pallor, non jaundice, warm to touch Musculoskeletal: No clubbing, cyanosis or edema Neurological: Alert and oriented x3 with periods of confusion, no facial asymmetry, no gross motor deficits noted on limited exam Psychiatric: mood and affect congruet pleasant and cooperative Objective Data Vital Signs Vital Signs: Vital Signs - 24 hr 11/04/21 10:00 11/04/21 12:00 11/04/21 13:48 Temperature 100.6 F H 99.1 F Pulse Rate 118 H 98 Respiratory Rate 32 H Blood Pressure 127/59 L Pulse Oximetry 98 11/04/21 13:49 11/04/21 14:
[2021-11-05 11:35] LABS: Glucose Point of Care 206 mg/dl (65-105)
[2021-11-05] MEDS: SODIUM CHLORIDE 0.9% IV 1,000 ML 75 ML IV CONT ×2 (12:00→18:07)
--- NOTE | 2021-11-05 13:43 | PM.PNGS ---
Progress Note: A&P Assessment and Plan (1) Acute cholecystitis: Code(s): K81.0 - Acute cholecystitis Status: Acute Assessment and Plan: Continues to improve with conservative management Will advance to full liquids Consider HIDA scan tomorrow to evaluate for acute acalculous cholecystitis Continue IV Zosyn (2) Sepsis: Code(s): A41.9 - Sepsis, unspecified organism Status: Acute Assessment and Plan: Improving. WBC trending down. Blood cx showing growth of E.Coli 2/2, sensitivities pending Continue IV Zosyn and IV fluids Trend labs (3) Atrial fibrillation with RVR: Code(s): I48.91 - Unspecified atrial fibrillation Status: Acute Assessment and Plan: Cardiology following. Started on Cardizem drip. (4) Hypoxia: Code(s): R09.02 - Hypoxemia Status: Acute Assessment and Plan: [place] to be related to pneumonia, IV Doxycycline was added. Management per Hospitalist. (5) Elevated troponin: Code(s): R77.8 - Other specified abnormalities of plasma proteins Status: Acute Assessment and Plan: Mildly elevated with downward trend. Cardiology consulted and felt this is likely related to type 2 infarction. (6) Renal insufficiency: Code(s): N28.9 - Disorder of kidney and ureter, unspecified Status: Acute Assessment and Plan: Creatinine 1.7 today. Continue IV fluids, monitor labs. Additional Plan I have discussed the patient's case and plan of care with Dr. Espinal. Subjective Subjective Date/Time Seen: 11/05/21 12:43 Patient reports: no new complaints, feels better, tolerating liquids well, flatus and afebrile Interval history: Patient seen and examined with his at the bedside. he is alert and oriented x 3 for me today. he is answering questions appropriately. He denies any abdominal pain, nausea, vomiting, or bloating. His only complaint is the cough that he has been dealing with for a few months. No new changes or events overnight. Exam Const: General: no acute distress and awake Orientation/consciousness: patient oriented x3 GI: Inspection: non-distended GI Palp: Yes Soft to palpation, Yes Tenderness to palpation present (GI) (mildly tender in RUQ), No Guarding due to palpation present (GI) and No Rebound tenderness present Auscultation: normal bowel sounds Neuro: General: moves all extremities and no focal motor deficits Extrem: General: normal to inspection and no edema Psych: Insight: Fair insight present (Psych) Judgement: Fair judgement present (Psych) Objective Data Vital Signs Vital Signs: Vital Signs - 24 hr 11/04/21 13:48 11/04/21 13:49 11/04/21 14:00 Temperature 99.1 F Pulse Rate 122 H 108 H Respiratory Rate Blood Pressure Pulse Oximetry 11/04/21 15:25 11/04/21 16:00 11/04/21 16:38 Temperature 98.8 F Pulse Rate 123 H 132 H 137 H Respiratory Rate 24 H Blood Pressure 125/84 125/84 Pulse Oximetry 98 11/04/21 16:40 11/04/21 18:00 11/04/21 18:23 Temperature Pulse Rate 137 H 129 H 117 H Respiratory Rate Blood Pressure Pulse Oximetry 11/04/21 20:00 11/04/21 20:30 11/04/21 20:39 Temperature 97.8 F Pulse Rate 92 101 H 96 Respiratory Rate 22 H 24 H 22 H Blood Pressure 130/62 Pulse Oximetry 97 11/04/21 20:55 11/04/21 22:00 11/04/21 22:40 Temperature Pulse Rate 100 97 89 Respiratory Rate Blood Pressure Pulse Oximetry 94 11/04/21 23:52 11/04/21 23:58 11/05/21 00:30 Temperature 97.8 F Pulse Rate 85 80 85 Respiratory Rate 22 H 18 Blood Pressure 124/76 Pulse Oximetry 97 97 11/05/21 02:00 11/05/21 02:16 11/05/21 02:25 Temperature Pulse Rate 82 88 92 Respiratory Rate 20 20 Blood Pressure Pulse Oximetry 11/05/21 04:00 11/05/21 06:00 11/05/21 08:00 Temperature 97.8 F Pulse Rate 98 92 83 Respiratory Rate 18 Blood Pressure 112/57 L Pulse Oximetry 92 11/05/21 08:0
--- NOTE | 2021-11-05 15:29 | PM.PNCARD ---
Progress Note: A&P Assessment and Plan (1) Atrial fibrillation with RVR: Code(s): I48.91 - Unspecified atrial fibrillation Status: Acute Assessment and Plan: Developed sustained AFib with RVR last night. Converted to sinus rhythm with beta-brianna and IV diltiazem. Wean diltiazem off, increasing beta-brianna therapy. No doubt AFib exacerbated by acute illness. Systemic anticoagulation depending upon surgical plans for cholecystitis. CHADS2 Vasc score 4. Monitor closely for bleeding. Systemic anticoagulation with heparin infusion or Enoxaparin 1 milligram/kilogram subcutaneous q.12 hours for systemic anticoagulation transition to oral anticoagulation Eliquis 2.5 mg b.i.d. if no plans for percutaneous drainage or other surgical intervention. (2) Elevated troponin: Code(s): R77.8 - Other specified abnormalities of plasma proteins Status: Acute Assessment and Plan: Mild elevation, flat curve not secondary to acute coronary syndrome but type 2 infarction in setting of acute illness, renal failure, advanced age. On left heart catheterization preoperatively 2016 he had no significant coronary artery disease. (3) Acute cholecystitis: Code(s): K81.0 - Acute cholecystitis Status: Acute Assessment and Plan: Per surgical service. Continue IV antibiotics. Recommendations as appropriate with regard to preoperative surgical risk once management plans from surgery are available. (4) H/O aortic valve replacement: Code(s): Z95.2 - Presence of prosthetic heart valve Status: Acute Assessment and Plan: Check 2D echocardiogram. (5) Renal insufficiency: Code(s): N28.9 - Disorder of kidney and ureter, unspecified Status: Acute Assessment and Plan: Monitor renal function closely. Baseline unclear at this time. Judicious hydration. Advance diet as tolerated. (6) Metabolic encephalopathy: Code(s): G93.41 - Metabolic encephalopathy Status: Acute Assessment and Plan: Per primary service. Continue antibiotics. He continues to have coughing fits. Consider microaspiration. Defer to primary service. Could be STACI-inhibitor related. Will stop, change to ARB. Subjective Date/time seen: Date of service: 11/05/21 15:29 Follow-up for atrial fibrillation with RVR Overnight, patient developed sustained atrial fibrillation with rapid ventricular response. No improvement with IV metoprolol therefore diltiazem infusion initiated. Patient converted to sinus rhythm early this morning. No other new issues overnight. at bedside. Patient continues to note paroxysm is of severe coughing. Denies palpitations or chest pain. He notes some abdominal discomfort Review of Systems Review of Systems: All systems reviewed & are unremarkable except as noted in HPI and below Constitutional: Constitutional: Reports as per HPI, Reports no additional constitutional complaints, Reports fatigue, Reports fever(s) and Reports weakness Eyes: Eyes: Reports as per HPI and Reports no additional eye complaints ENT: Reports system reviewed and no additional complaints, except as documented and Reports as per HPI Cardiovascular: Cardiovascular: Reports as per HPI, Reports no additional cardiovascular complaints, Denies chest pain, Denies chest pain with activity, Denies leg edema, Denies palpitations and Reports dyspnea on exertion Respiratory: Respiratory: Reports as per HPI, Reports no additional respiratory complaints, Reports cough, Reports dyspnea on exertion and Reports wheezing Gastrointestinal: Gastrointestinal: Reports as per HPI, Reports no additional gastrointestinal complaints and Reports abdominal pain Genitourinary: Genitourinary: Reports no additional male genitourinary complaints and Reports as per HPI Musculoskeletal: Musculoskeletal: Reports no additional musculoskeletal complaints and Reports as per HPI Integumentary/Breasts: Skin/Breast: Reports s
[2021-11-05] MEDS: METOPROLOL TARTRATE 25 MG TABLET PO (17:19)
[2021-11-05 17:23] LABS: Glucose Point of Care 137 mg/dl (65-105)
[2021-11-05 20:02] LABS: Basophils Percent Auto 0.3 % (0.2-1.2); Eosinophils Absolute Auto 0.2 K/mm3 (0-0.3); Eosinophils Percent Auto 1.2 % (0-4.4); Hematocrit 33.2 % (42.0-52.0); Hemoglobin 11.1 g/dL (14.0-18.0); Immature Granulocyte Percent A 0.8 % (0-0.5); Lymphocytes Absolute Auto 0.75 K/mm3 (0.9-3.2); Lymphocytes Percent Auto 5.8 % (18.3-44.2); Mean Corpuscular HGB Conc 33.4 g/dl (32-36); Mean Corpuscular Hemoglobin 30.4 pg (26-34); Mean Platelet Volume 11.3 fl (7.4-10.4); Monocytes Percent Auto 7.9 % (2.6-8.5); Neutrophils Absolute Auto 10.9 K/mm3 (1.3-6.7); Platelet Count Result 184 k/mm3 (150-375); Red Blood Count 3.65 M/mm3 (4.6-6.20); Red Cell Distribution Width 14.2 % (11.5-14.5); White Blood Count 12.9 K/mm3 (4.5-10.0)
[2021-11-05 20:15] LABS: Partial Thromboplastin Time 37.6 SECONDS (22.3-36.8)
[2021-11-05 20:20] LABS: INR 1.4; Prothrombin Time 16.2 Seconds (11.1-14.7)
[2021-11-05 20:32] LABS: Glucose Point of Care 155 mg/dl (65-105)
[2021-11-05] MEDS: HEPARIN SOD/D5W 100 UNITS/ML 25,000 UNITS/250 ML BAG 12 UNITS IV CONT (20:55)
[2021-11-05] MEDS: HEPARIN SODIUM 5,000 UNITS/ML VIAL 5500 UNITS IV PUSH (20:56)
[2021-11-05] MEDS: traZODone HCL 50 MG TABLET 200 MG PO (20:57)
[2021-11-05] MEDS: METOPROLOL TARTRATE 12.5 MG TABLET 37.5 MG PO (20:57)
[2021-11-05] MEDS: ALPRAZolam (*CRX) 0.5 MG TABLET 1 MG PO (20:58)
[2021-11-06] VITALS (22 sets, daily range): BP systolic 121–151; BP diastolic 57–72; PULSE 72–101; RESP 16–24; TEMP 36.2–37.4; O2SAT 93–100
[2021-11-06] MEDS: IPRATROPIUM BR 0.02% INH SOLN 0.5 MG/2.5 ML VIAL INHALATION ×4 (02:43→20:00)
[2021-11-06] MEDS: ALBUTEROL SULFATE NEB 2.5 MG/0.5 ML INH 5 MG INHALATION ×4 (02:43→20:00)
[2021-11-06 03:28] LABS: Basophils Absolute Auto 0.1 K/mm3 (0.0-0.1); Basophils Percent Auto 0.4 % (0.2-1.2); Eosinophils Absolute Auto 0.1 K/mm3 (0-0.3); Eosinophils Percent Auto 0.5 % (0-4.4); Hemoglobin 12.1 g/dL (14.0-18.0); Immature Granulocyte Absolute 0.07 K/mm3 (0.00-0.031); Immature Granulocyte Percent A 0.5 % (0-0.5); Lymphocytes Absolute Auto 0.67 K/mm3 (0.9-3.2); Lymphocytes Percent Auto 4.9 % (18.3-44.2); Mean Corpuscular HGB Conc 32.7 g/dl (32-36); Mean Corpuscular Hemoglobin 30.4 pg (26-34); Mean Platelet Volume 11.3 fl (7.4-10.4); Monocytes Absolute Auto 1.1 K/mm3 (0.1-0.6); Monocytes Percent Auto 7.7 % (2.6-8.5); Neutrophils Absolute Auto 11.6 K/mm3 (1.3-6.7); Platelet Count Result 194 k/mm3 (150-375); Red Blood Count 3.98 M/mm3 (4.6-6.20); Red Cell Distribution Width 14.2 % (11.5-14.5); White Blood Count 13.6 K/mm3 (4.5-10.0)
[2021-11-06 03:40] LABS: Partial Thromboplastin Time 93.1 SECONDS (22.3-36.8)
[2021-11-06 03:48] LABS: Alanine Aminotransferase 20 U/L (4-50); Albumin Level 3.3 g/dL (3.5-5.1); Alkaline Phosphatase 125 U/L (38-126); Anion Gap 7 mmol/L (8-16); Aspartate Amino Transferase 38 U/L (17-59); Bilirubin,Total 1.1 mg/dL (0.2-1.3); Blood Urea Nitrogen 27 mg/dL (9-20); Carbon Dioxide 24 mmol/L (22-30); Chloride 107 mmol/L (98-107); Estimated CRCL calculation 27 ml/min; Estimated Glomerular Filt Rate 38; Glucose 197 mg/dL (65-110); Potassium 3.2 mmol/L (3.4-5.0); Sodium 138 mmol/L (137-145)
[2021-11-06] MEDS: DOXYCYCLINE 100 MG/NS 100 ML 100 MG/100 ML BAG IVPB ×2 (05:12→18:53)
[2021-11-06] MEDS: METOPROLOL TARTRATE 12.5 MG TABLET 37.5 MG PO ×2 (08:04→20:49)
[2021-11-06] MEDS: ATORVASTATIN 20 MG TABLET PO (08:05)
[2021-11-06] MEDS: lisinopriL 20 MG TABLET PO (08:05)
[2021-11-06 08:22] LABS: Glucose Point of Care 250 mg/dl (65-105)
--- NOTE | 2021-11-06 08:35 | ECHO_ITS ---
Patient Info Name: Reggie Ortiz Age: 86 years : 1935 Gender: Male Ht: 64 in Wt: 180 lbs BSA: 1.95 m2 HR: 87 bpm BP: 147 / 72 mmHg Heart Rhythm: Sinus Rhythm Exam Date: 11/06/2021 9:30 AM Exam Location: [facility] Pulmonary Patient Status: Inpatient Admit Date: 11/04/2021 Staff Ordering Physician: Harry Vallejo MD Material Flow Analyst: Ronn Mcleod RDCS, RT Attending Provider: Waleska Espinoza PA-C Referring Physician: Genevieve TERESA; Exam Type: CA echo doppler color flow Study Info Indications I48.1 - Persistent atrial fibrillation Complete two-dimensional, color flow and Doppler transthoracic echocardiogram is performed. Strain analysis performed. Summary 1. Complete two-dimensional, color flow and Doppler transthoracic echocardiogram is performed. 2. Left ventricular chamber dimension is normal. 3. Left ventricular systolic function is normal, estimated at 65-70%. 4. There is moderately increased left ventricular wall thickness. 5. The left ventricular diastolic function is grade II diastolic dysfunction. 6. Global longitudinal strain is moderately elevated at -12 %. 7. Normal-appearing bioprosthetic valve in the aortic position. 8. There is no bioprosthetic aortic valve stenosis. 9. There is no regurgitation of the bioprosthetic aortic valve. 10. There is mild mitral valve regurgitation. 11. There is moderate tricuspid valve regurgitation. 12. Severe pulmonary hypertension, estimated pulmonary arterial systolic pressure is 64 mmHg. Left Ventricle Left ventricular chamber dimension is normal. Left ventricular systolic function is normal, estimated at 65-70%. There is moderately increased left ventricular wall thickness. The left ventricular diastolic function is grade II diastolic dysfunction. Global longitudinal strain is moderately elevated at -12 %. Right Ventricle Right ventricular chamber dimension is upper limits normal size. Right ventricular systolic function is normal. Left Atria Left atrial chamber dimension is mildly enlarged. Right Atria Right atrial chamber dimension is mildly enlarged. Aortic Valve There is no bioprosthetic aortic valve stenosis. There is no regurgitation of the bioprosthetic aortic valve. Normal-appearing bioprosthetic valve in the aortic position. Pulmonic Valve The pulmonic valve is not well visualized. There is mild pulmonic regurgitation. Mitral Valve The mitral valve has thickened leaflets. There is mild mitral valve regurgitation. Tricuspid Valve The tricuspid valve leaflets are normal. There is moderate tricuspid valve regurgitation. Severe pulmonary hypertension, estimated pulmonary arterial systolic pressure is 64 mmHg. Pericardium/Pleural The pericardium appears normal. There is small pericardial effusion. Inferior Vena Cava Dilated inferior vena cava with >50% collapse upon inspiration consistent with elevated right atrial pressure, 10 mmHg. Aorta The aortic root size at the sinus of Valsalva is normal. There is mild aortic atherosclerosis. Left Ventricular Outflow Tract Name Value Normal LVOT 2D LVOT Diameter 2.1 cm LVOT Doppler
[2021-11-06 09:24] LABS: Partial Thromboplastin Time 44.5 SECONDS (22.3-36.8)
[2021-11-06] MEDS: HEPARIN SODIUM 5,000 UNITS/ML VIAL 5500 UNITS IV PUSH (10:19)
[2021-11-06 11:54] LABS: Glucose Point of Care 205 mg/dl (65-105)
[2021-11-06] MEDS: SODIUM CHLORIDE 0.9% IV 1,000 ML 75 ML IV CONT (11:56)
--- NOTE | 2021-11-06 12:53 | PM.IMPN ---
Progress Note: A&P Assessment and Plan (1) Atrial fibrillation with RVR: Code(s): I48.91 - Unspecified atrial fibrillation Status: Acute (2) H/O aortic valve replacement: Code(s): Z95.2 - Presence of prosthetic heart valve Status: Acute (3) PSVT (paroxysmal supraventricular tachycardia): Code(s): I47.1 - Supraventricular tachycardia Status: Acute (4) Metabolic encephalopathy: Code(s): G93.41 - Metabolic encephalopathy Status: Acute (5) Sepsis: Code(s): A41.9 - Sepsis, unspecified organism Status: Acute (6) Hypoxia: Code(s): R09.02 - Hypoxemia Status: Acute (7) Elevated troponin: Code(s): R77.8 - Other specified abnormalities of plasma proteins Status: Acute (8) Renal insufficiency: Code(s): N28.9 - Disorder of kidney and ureter, unspecified Status: Acute (9) Nonspecific interstitial pneumonia: Code(s): J84.89 - Other specified interstitial pulmonary diseases Status: Acute (10) Acute cholecystitis: Code(s): K81.0 - Acute cholecystitis Status: Acute (11) Hypokalemia: Code(s): E87.6 - Hypokalemia Status: Acute Additional Plan Patient has sepsis given his respiratory symptoms is most likely due to pneumonia. Patient was started on Zosyn initially from the ER due to CT findings concerning for acute cholecystitis. However, patient developed acute hypoxic respiratory failure upon transfer to the intermediate unit and had increasing wheezing and tachypnea. Thusly, I feel pneumonia is more likely especially in the absence of significant right upper quadrant pain. Blood cultures are pending. Will continue Zosyn will add antibiotic coverage with doxycycline. Given the patient's significant wheezing will add scheduled nebulizers with albuterol and Atrovent. Will hold off on giving steroid therapy given patient's fever and sepsis. Will check urine Legionella and urine pneumococcal antigen. Given possible acute cholecystitis noted on CT scan right upper quadrant ultrasound has been ordered. The patient is currently NPO in general surgery has been consulted. On exam the patient has no abdominal pain at this time. Patient does have some renal insufficiency it is unclear if this is acute kidney injury versus chronic kidney disease. Based on BUN creatinine ratio leaning more toward this being chronic in nature. Will continue IV fluid hydration and repeat BMP in a.m.. Patient did have mildly elevated troponin but troponins are actually trending downward. There is no evidence of acute cardiac ischemia. Patient may have some mild troponin leak due to sepsis in the setting of chronic kidney disease and history of valve replacement. At the time of my evaluation the patient was encephalopathic. It is unclear if this was due to Ativan administration verses acute sepsis. Will hold any further sedating medications and treat underlying infection. NPO at [place] HIDA scan in am pain meds held in am BB added per cardio heparin gtt until HIDA results discussed w surgery 11/06/21 40mEq of potassium ordered Call received from radiologist HIDA scan positive with positive blood cultures will proceed with ultrasound-guided cholecystostomy cont zosyn restart anticoagulation after drain inserted cont supportive care pt remains on supplemental O2 on doxy for atypical PNA Subjective Date/time seen: 11/06/21 12:53 pt doing ok, bedside POC discussed w her. Spoke w IR pt to have cholecystostomy drain placed today Exam Narrative: General: No acute distress, obese HEENT: NCAT mucous membranes are moist EOMI Respiratory: no use of accessory muscles symmetric chest rise Cardiovascular: RRR S1S2 Gastrointestinal: Soft, TTP to palpation in RUQ, nondistended, no rebound or guarding Skin: No pallor, non jaundice, warm to touch Musculoskeletal: No clubbing, cyanosis or edema Neurological: Al
[2021-11-06] MEDS: MORPHINE SULFATE (*CRX) 2 MG/ML INJ IV PUSH (13:34)
[2021-11-06] MEDS: POTASSIUM CHLORIDE INJ 40 MEQ in SODIUM CHLORIDE 0.9% IV 500 ML 130 MEQ IVPB (14:56)
--- NOTE | 2021-11-06 15:59 | PM.PNCARD ---
Progress Note: A&P Assessment and Plan (1) Atrial fibrillation with RVR: Code(s): I48.91 - Unspecified atrial fibrillation Status: Acute Assessment and Plan: Developed sustained AFib with RVR converted to sinus rhythm on IV diltiazem which has subsequently been discontinued. . No doubt AFib exacerbated by acute illness. Systemic anticoagulation depending upon surgical plans for cholecystitis. CHADS2 Vasc score 4. Monitor closely for bleeding. Systemic anticoagulation with heparin infusion transition to oral anticoagulation Eliquis 2.5 mg b.i.d. if no plans for percutaneous drainage or other surgical intervention. -continue oral metoprolol as tolerated If unable to utilize p.o. change to IV metoprolol 5 mg q.6 hours. Telemetry -systemic anticoagulation dependent upon surgical plans. Heparin drip on hold -monitor and replete electrolytes. Hypokalemic this morning given 40 mEq potassium. (2) Elevated troponin: Code(s): R77.8 - Other specified abnormalities of plasma proteins Status: Acute Assessment and Plan: Mild elevation, flat curve not secondary to acute coronary syndrome but type 2 infarction in setting of acute illness, renal failure, advanced age. On left heart catheterization preoperatively 2016 he had no significant coronary artery disease. (3) Acute cholecystitis: Code(s): K81.0 - Acute cholecystitis Status: Acute Assessment and Plan: Per surgical service. Continue IV antibiotics. Recommendations as appropriate with regard to preoperative surgical risk once management plans from surgery are available. (4) H/O aortic valve replacement: Code(s): Z95.2 - Presence of prosthetic heart valve Status: Acute Assessment and Plan: Check 2D echocardiogram. (5) Renal insufficiency: Code(s): N28.9 - Disorder of kidney and ureter, unspecified Status: Acute Assessment and Plan: Monitor renal function closely. Baseline unclear at this time. Judicious hydration. Advance diet as tolerated. (6) Metabolic encephalopathy: Code(s): G93.41 - Metabolic encephalopathy Status: Acute Assessment and Plan: Per primary service. Continue antibiotics. He is more confused Consider microaspiration. Defer to primary service. Could be STACI-inhibitor related. Will consider stopping in favor of ARB when patient further stabilized. (7) Bacteremia: Code(s): R78.81 - Bacteremia Status: Acute Assessment and Plan: E coli bacteremia blood cultures x2 positive from 11/03/2021. Per primary service and surgery. IV antibiotics. Subjective Date/time seen: DATE OF SERVICE: 11/06/21 15:59 Follow-up for atrial fibrillation with rapid ventricular response Patient reverted to sinus rhythm yesterday maintaining sinus rhythm on telemetry. Diltiazem discontinued, oral metoprolol increased. Patient much more confused. E coli bacteremia from blood cultures 11/03/2021. Percutaneous drain planned this afternoon. HIDA scan earlier today consistent with acute cholecystitis. at bedside. Patient rambling incoherently not answering questions appropriately. Review of Systems Review of Systems: All systems reviewed & are unremarkable except as noted in HPI and below Constitutional: Constitutional: Reports as per HPI, Reports no additional constitutional complaints, Reports fatigue, Reports fever(s) and Reports weakness Eyes: Eyes: Reports as per HPI and Reports no additional eye complaints ENT: Reports system reviewed and no additional complaints, except as documented and Reports as per HPI Cardiovascular: Cardiovascular: Reports as per HPI, Reports no additional cardiovascular complaints, Denies chest pain, Denies chest pain with activity, Denies leg edema, Denies palpitations and Reports dyspnea on exertion Respiratory: Respiratory: Reports as per HPI, Reports no additional respiratory complaints, Reports cough, Reports dyspnea o
[2021-11-06 16:18] LABS: Glucose Point of Care 182 mg/dl (65-105)
--- NOTE | 2021-11-06 16:27 | PM.PNGS ---
Progress Note: A&P Assessment and Plan (1) Acute cholecystitis: Code(s): K81.0 - Acute cholecystitis Status: Acute Assessment and Plan: no gallstones noted on ultrasound or initial CT report but I agree with the impression rendered after the HIDA scan today that shows a small stone in the neck of the gallbladder or possibly cystic duct. HIDA scan was positive for cystic duct obstruction and nonvisualization of the gallbladder. Patient has already been scheduled by the hospitalist to proceed with ultrasound guided cholecystostomy tube placement. Heparin drip has been held. Agree with this plan. (2) Atrial fibrillation with RVR: Code(s): I48.91 - Unspecified atrial fibrillation Status: Acute Assessment and Plan: On heparin drip, held for procedure (3) Bacteremia: Code(s): R78.81 - Bacteremia Status: Acute Assessment and Plan: 2 blood cultures positive for E coli likely from cholecystitis. (4) Nonspecific interstitial pneumonia: Code(s): J84.89 - Other specified interstitial pulmonary diseases Status: Acute Assessment and Plan: On antibiotic treatment Subjective Subjective Date/Time Seen: 11/06/21 16:27 Patient reports: no new complaints, bowel movement and afebrile Interval history: No new complaints of abdominal pain. Denies right upper quadrant abdominal pain. Review of Systems Review of Systems: All systems reviewed & are unremarkable except as noted in HPI and below ( HPI) Constitutional: Constitutional: Denies body ache(s), Denies chills, Denies fever(s) and Reports poor appetite Cardiovascular: Cardiovascular: Denies chest pain and Denies dyspnea Respiratory: Respiratory: Denies cough and Denies dyspnea Gastrointestinal: Gastrointestinal: Reports as per HPI, Denies abdominal pain, Denies nausea and Denies vomiting Exam Const: General: cooperative, comfortable, no acute distress, alert and awake Nutritional Appearance: average body habitus GI: Inspection: normal to inspection and non-distended GI Palp: Yes Soft to palpation, No Tenderness to palpation present (GI), No Hernia present and No Palpable mass present Auscultation: Hypoactive bowel sounds present Objective Data Vital Signs Vital Signs: Vital Signs - 24 hr 11/05/21 17:19 11/05/21 18:00 11/05/21 19:40 Temperature 36.3 C L Pulse Rate 86 85 84 Respiratory Rate 18 Blood Pressure 110/64 Pulse Oximetry 95 11/05/21 20:00 11/05/21 20:24 11/05/21 20:31 Temperature Pulse Rate 86 80 87 Respiratory Rate 22 H 24 H 22 H Blood Pressure Pulse Oximetry 93 93 11/05/21 20:57 11/05/21 22:00 11/06/21 00:00 Temperature 37.4 C Pulse Rate 96 95 93 Respiratory Rate 18 Blood Pressure 131/70 Pulse Oximetry 95 11/06/21 02:00 11/06/21 02:43 11/06/21 02:51 Temperature Pulse Rate 98 99 95 Respiratory Rate 24 H 24 H Blood Pressure Pulse Oximetry 11/06/21 04:00 11/06/21 06:00 11/06/21 08:00 Temperature 36.8 C 36.9 C Pulse Rate 99 101 H 76 Respiratory Rate 18 20 Blood Pressure 147/72 H 121/64 Pulse Oximetry 97 95 11/06/21 08:04 11/06/21 08:22 11/06/21 09:00 Temperature 36.9 C Pulse Rate 78 76 78 Respiratory Rate 20 22 H Blood Pressure 121/64 Pulse Oximetry 95 11/06/21 09:09 11/06/21 12:00 11/06/21 12:08 Temperature 36.9 C Pulse Rate 79 79 78 Respiratory Rate 22 H 20 Blood Pressure 122/61 Pulse Oximetry 95 93 Intake/Output Intake/Output: Intake & Output 11/03/21 11/04/21 11/05/21 11/06/21 23:59 23:59 23:59 23:59 Intake Total 1650 2324 4256 1150 Output Total 1075 Balance 1650 1249 4256 1150 Meds/Results Medications: Active Medications Generic Name Dose Route Start Last Admin Trade Name Darienq PRN Reason Stop Dose Admin Albuterol 5 mg 11/04/21 08:00 11/06/21 13:43 Albuterol Sulfate Neb 2.5 Mg/0.5 Ml Inh INHALATION 5 mg Q6HRT GEOVANY Administration Alprazolam 1 mg
[2021-11-06 20:46] LABS: Glucose Point of Care 155 mg/dl (65-105)
[2021-11-06] MEDS: traZODone HCL 50 MG TABLET 200 MG PO (20:49)
[2021-11-06] MEDS: ALPRAZolam (*CRX) 0.5 MG TABLET 1 MG PO (22:38)
[2021-11-07] VITALS (24 sets, daily range): BP systolic 145–175; BP diastolic 66–85; PULSE 79–100; RESP 15–20; TEMP 36.3–36.8; O2SAT 95–100
[2021-11-07] MEDS: ALBUTEROL SULFATE NEB 2.5 MG/0.5 ML INH 5 MG INHALATION ×4 (02:01→20:19)
[2021-11-07] MEDS: IPRATROPIUM BR 0.02% INH SOLN 0.5 MG/2.5 ML VIAL INHALATION ×4 (02:01→20:18)
[2021-11-07 02:38] LABS: Pneumococcal Antigen Urine Not Detected (Not Detected)
[2021-11-07] MEDS: SODIUM CHLORIDE 0.9% IV 1,000 ML 75 ML IV CONT (04:31)
[2021-11-07] MEDS: DOXYCYCLINE 100 MG/NS 100 ML 100 MG/100 ML BAG IVPB ×2 (05:17→17:45)
[2021-11-07 06:18] LABS: Magnesium 2.5 mg/dL (1.6-2.3)
[2021-11-07 06:22] LABS: CRP 19.2 mg/dL (<1.0)
[2021-11-07 06:42] LABS: Basophils Absolute Auto 0.1 K/mm3 (0.0-0.1); Basophils Percent Auto 0.7 % (0.2-1.2); Eosinophils Absolute Auto 0.3 K/mm3 (0-0.3); Eosinophils Percent Auto 2.7 % (0-4.4); Hematocrit 37.9 % (42.0-52.0); Hemoglobin 12.1 g/dL (14.0-18.0); Immature Granulocyte Absolute 0.09 K/mm3 (0.00-0.031); Immature Granulocyte Percent A 0.7 % (0-0.5); Lymphocytes Absolute Auto 1.14 K/mm3 (0.9-3.2); Lymphocytes Percent Auto 9.3 % (18.3-44.2); Mean Corpuscular HGB Conc 31.9 g/dl (32-36); Mean Corpuscular Hemoglobin 30.4 pg (26-34); Mean Corpuscular Volume 95.2 fl (80-100); Mean Platelet Volume 11.1 fl (7.4-10.4); Monocytes Percent Auto 8.1 % (2.6-8.5); Neutrophils Absolute Auto 9.7 K/mm3 (1.3-6.7); Neutrophils Percent Auto 78.5 % (45.5-73.1); Platelet Count Result 224 k/mm3 (150-375); Red Blood Count 3.98 M/mm3 (4.6-6.20); Red Cell Distribution Width 14.8 % (11.5-14.5); White Blood Count 12.3 K/mm3 (4.5-10.0)
[2021-11-07] MEDS: ATORVASTATIN 20 MG TABLET PO (08:03)
[2021-11-07] MEDS: lisinopriL 20 MG TABLET PO (08:03)
[2021-11-07] MEDS: METOPROLOL TARTRATE 12.5 MG TABLET 37.5 MG PO (08:04)
[2021-11-07 08:26] LABS: Glucose Point of Care 150 mg/dl (65-105)
[2021-11-07 08:43] LABS: Alanine Aminotransferase 23 U/L (4-50); Albumin Level 3.1 g/dL (3.5-5.1); Alkaline Phosphatase 139 U/L (38-126); Anion Gap 9 mmol/L (8-16); Aspartate Amino Transferase 41 U/L (17-59); Bilirubin,Total 0.8 mg/dL (0.2-1.3); Blood Urea Nitrogen 34 mg/dL (9-20); Calcium 8.2 mg/dL (8.4-10.2); Carbon Dioxide 18 mmol/L (22-30); Chloride 113 mmol/L (98-107); Estimated CRCL calculation 26 ml/min; Estimated Glomerular Filt Rate 36; Glucose 173 mg/dL (65-110); Potassium 3.9 mmol/L (3.4-5.0); Sodium 140 mmol/L (137-145)
[2021-11-07] MEDS: ENOXAPARIN 100 MG/ML SYRINGE 85 MG SUB-Q (09:41)
[2021-11-07 12:42] LABS: Glucose Point of Care 142 mg/dl (65-105)
--- NOTE | 2021-11-07 13:29 | PM.PNGS ---
Progress Note: A&P Assessment and Plan (1) Acute cholecystitis: Code(s): K81.0 - Acute cholecystitis Status: Acute Assessment and Plan: cholecystostomy tube placed yesterday should provide resolution of cholecystitis. Tube in place and seems to be draining well. Continue Zosyn. (2) Bacteremia: Code(s): R78.81 - Bacteremia Status: Acute Assessment and Plan: E coli bacteremia likely gallbladder source. (3) Atrial fibrillation with RVR: Code(s): I48.91 - Unspecified atrial fibrillation Status: Acute Assessment and Plan: Patient now on therapeutic dose of Lovenox. Plans include switching to oral agent such as Eliquis. Subjective Subjective Date/Time Seen: 11/07/21 13:29 Patient reports: other ( Patient more confused when I saw him.) Interval history: Talked with nursing. Patient was pretty awake and at baseline mental status earlier today. He did undergo physical therapy and since then has been sleepy and seemingly more confused. He has not been eating much today either. He did have ultrasound-guided cholecystostomy tube placement yesterday without difficulty. Fluid in the gallbladder was bile colored. Review of Systems Review of Systems: ROS unobtainable: Yes unobtainable due to mental status Exam Const: General: comfortable, no acute distress, awake and confusion Orientation/consciousness: confusion GI: Inspection: incision ( Catheter drainage site dry and intact) and other ( bile draining from cholecystostomy tube as expected) GI Palp: Yes Soft to palpation, Yes Tenderness to palpation present (GI) ( mild right upper quadrant tenderness), No Hernia present and No Palpable mass present Auscultation: Hypoactive bowel sounds present Neuro: General: confusion Objective Data Vital Signs Vital Signs: Vital Signs - 24 hr 11/06/21 14:00 11/06/21 16:00 11/06/21 16:34 Temperature 36.2 C L Pulse Rate 79 79 80 Respiratory Rate 20 Blood Pressure 121/57 L Pulse Oximetry 95 100 11/06/21 20:00 11/06/21 20:05 11/06/21 20:15 Temperature 36.4 C L Pulse Rate 85 83 87 Respiratory Rate 18 20 20 Blood Pressure 151/62 H Pulse Oximetry 97 96 11/06/21 20:49 11/06/21 22:00 11/06/21 23:37 Temperature 36.2 C L Pulse Rate 91 82 82 Respiratory Rate 18 Blood Pressure 151/64 H Pulse Oximetry 97 11/07/21 00:00 11/07/21 02:02 11/07/21 02:12 Temperature Pulse Rate 86 85 88 Respiratory Rate 15 20 20 Blood Pressure Pulse Oximetry 11/07/21 04:00 11/07/21 06:00 11/07/21 08:00 Temperature 36.3 C L Pulse Rate 86 87 92 Respiratory Rate 15 Blood Pressure 145/67 H Pulse Oximetry 96 95 11/07/21 08:04 11/07/21 08:20 11/07/21 08:22 Temperature Pulse Rate 91 86 Respiratory Rate 20 Blood Pressure Pulse Oximetry 95 11/07/21 08:52 11/07/21 10:00 11/07/21 12:00 Temperature 36.8 C Pulse Rate 88 84 79 Respiratory Rate 18 Blood Pressure 155/73 H Pulse Oximetry 97 95 11/07/21 13:18 Temperature 36.4 C Pulse Rate 86 Respiratory Rate 18 Blood Pressure 175/66 H Pulse Oximetry 97 Intake/Output Intake/Output: Intake & Output 11/04/21 11/05/21 11/06/21 11/07/21 23:59 23:59 23:59 23:59 Intake Total 2324 4256 1450 1200 Output Total 1075 80 Balance 1249 4256 1370 1200 Meds/Results Medications: Active Medications Generic Name Dose Route Start Last Admin Trade Name Freq PRN Reason Stop Dose Admin Albuterol 5 mg 11/04/21 08:00 11/07/21 08:21 Albuterol Sulfate Neb 2.5 Mg/0.5 Ml Inh INHALATION 5 mg Q6HRT GEOVANY Administration Alprazolam 1 mg 11/04/21 21:00 11/06/21 22:38 Alprazolam (*Crx) 0.5 Mg Tablet PO 1 mg HS GEOVANY Administration Atorvastatin Calcium 20 mg 11/05/21 09:00 11/07/21 08:03 Atorvastatin 20 Mg Tablet PO 20 mg DAILY GEOVANY Administration Enoxaparin Sodium 85 mg 11/07/21 09:00 11/07/21 09:41 Enoxaparin 100 Mg/Ml Syringe SUB-Q 8
[2021-11-07 17:04] LABS: Glucose Point of Care 149 mg/dl (65-105)
--- NOTE | 2021-11-07 17:12 | PM.PNCARD ---
Progress Note: A&P Assessment and Plan (1) Atrial fibrillation with RVR: Code(s): I48.91 - Unspecified atrial fibrillation Status: Acute Assessment and Plan: Episode of new onset paroxysmal AFib with RVR after admission, converted to sinus rhythm on IV diltiazem which has subsequently been discontinued. No doubt AFib exacerbated by acute illness. CHADS2 Vasc score 4. Currently on Lovenox Transition to oral anticoagulation Eliquis 2.5 mg b.i.d. Continue oral metoprolol 37.5 mg twice daily. Continue telemetry (2) Elevated troponin: Code(s): R77.8 - Other specified abnormalities of plasma proteins Status: Acute Assessment and Plan: Mild elevation, flat curve not secondary to acute coronary syndrome but type 2 infarction in setting of acute illness, renal failure, advanced age. On left heart catheterization preoperatively 2016 he had no significant coronary artery disease. (3) Acute cholecystitis: Code(s): K81.0 - Acute cholecystitis Status: Acute Assessment and Plan: Per surgical service. Status post cholecystotomy tube and antibiotics, improving. (4) H/O aortic valve replacement: Code(s): Z95.2 - Presence of prosthetic heart valve Status: Acute Assessment and Plan: Normal appearing prosthetic aortic valve by echo. (5) Renal insufficiency: Code(s): N28.9 - Disorder of kidney and ureter, unspecified Status: Acute Assessment and Plan: Monitor renal function closely. BUN and creatinine have increased slightly. Judicious hydration. (6) Metabolic encephalopathy: Code(s): G93.41 - Metabolic encephalopathy Status: Acute Assessment and Plan: Per primary service. Continue antibiotics. He is confused. Consider microaspiration. Defer to primary service. Could be STACI-inhibitor related. Will consider stopping in favor of ARB when patient further stabilized. (7) Bacteremia: Code(s): R78.81 - Bacteremia Status: Acute Assessment and Plan: E coli bacteremia blood cultures x2 positive from 11/03/2021. Per primary service and surgery. IV antibiotics. Subjective Date/time seen: 11/07/21 17:12 Follow-up for atrial fibrillation with rapid ventricular response. Admitted with acute cholecystitis and E coli bacteremia. History of bioprosthetic aortic valve replacement, followed by Dr. Estrella. 11/06/2021: Patient reverted to sinus rhythm yesterday maintaining sinus rhythm on telemetry. Diltiazem discontinued, oral metoprolol increased. Patient much more confused. E coli bacteremia from blood cultures 11/03/2021. Percutaneous drain planned this afternoon. HIDA scan earlier today consistent with acute cholecystitis. at bedside. Patient rambling incoherently not answering questions appropriately. Date of service 11/07/2021: Patient had a cholecystotomy tube placed yesterday. Tolerating liquids. Patient is weak and rambling; is concerned how to take care of him at home and hopes he can go to rehab. Telemetry shows he is maintaining sinus rhythm. BUN and creatinine are up a little. Echo as below, normal systolic function, does have diastolic dysfunction. Aortic valve replacement appears normal. Review of Systems Constitutional: Constitutional: Reports fatigue and Reports weakness Eyes: Eyes: Reports no additional eye complaints ENT: Reports Normal hearing present and Denies epistaxis Cardiovascular: Cardiovascular: Denies chest pain, Denies pedal edema and Denies leg edema Respiratory: Respiratory: Reports cough (Chronic dry hacky cough), Denies dyspnea and Denies dyspnea on exertion Gastrointestinal: Gastrointestinal: Denies abdominal pain and Denies nausea Genitourinary: Genitourinary: Denies dysuria Musculoskeletal: Musculoskeletal: Reports no additional musculoskeletal complaints Integumentary/Breasts: Skin/Breast: Denies rash Neurologic: Comments: is concer
--- NOTE | 2021-11-07 17:40 | PM.IMPN ---
Progress Note: A&P Assessment and Plan (1) Atrial fibrillation with RVR: Code(s): I48.91 - Unspecified atrial fibrillation Status: Acute (2) H/O aortic valve replacement: Code(s): Z95.2 - Presence of prosthetic heart valve Status: Acute Assessment and Plan: bovine valve (3) PSVT (paroxysmal supraventricular tachycardia): Code(s): I47.1 - Supraventricular tachycardia Status: Acute (4) Metabolic encephalopathy: Code(s): G93.41 - Metabolic encephalopathy Status: Acute (5) Sepsis: Code(s): A41.9 - Sepsis, unspecified organism Status: Acute (6) Hypoxia: Code(s): R09.02 - Hypoxemia Status: Acute (7) Elevated troponin: Code(s): R77.8 - Other specified abnormalities of plasma proteins Status: Acute (8) Renal insufficiency: Code(s): N28.9 - Disorder of kidney and ureter, unspecified Status: Acute (9) Nonspecific interstitial pneumonia: Code(s): J84.89 - Other specified interstitial pulmonary diseases Status: Acute (10) Acute cholecystitis: Code(s): K81.0 - Acute cholecystitis Status: Acute (11) Hypokalemia: Code(s): E87.6 - Hypokalemia Status: Acute (12) Bacteremia: Code(s): R78.81 - Bacteremia Status: Deleted (13) E coli bacteremia: Code(s): R78.81 - Bacteremia; B96.20 - Unspecified Escherichia coli [E. coli] as the cause of diseases classified elsewhere Status: Acute (14) LISA (acute kidney injury): Code(s): N17.9 - Acute kidney failure, unspecified Status: Acute (15) Pulmonary hypertension: Code(s): I27.20 - Pulmonary hypertension, unspecified Status: Acute (16) History of aortic valve replacement with bioprosthetic valve: Code(s): Z95.3 - Presence of xenogenic heart valve Status: Acute Additional Plan Patient has sepsis given his respiratory symptoms is most likely due to pneumonia. Patient was started on Zosyn initially from the ER due to CT findings concerning for acute cholecystitis. However, patient developed acute hypoxic respiratory failure upon transfer to the intermediate unit and had increasing wheezing and tachypnea. Thusly, I feel pneumonia is more likely especially in the absence of significant right upper quadrant pain. Blood cultures are pending. Will continue Zosyn will add antibiotic coverage with doxycycline. Given the patient's significant wheezing will add scheduled nebulizers with albuterol and Atrovent. Will hold off on giving steroid therapy given patient's fever and sepsis. Will check urine Legionella and urine pneumococcal antigen. Given possible acute cholecystitis noted on CT scan right upper quadrant ultrasound has been ordered. The patient is currently NPO in general surgery has been consulted. On exam the patient has no abdominal pain at this time. Patient does have some renal insufficiency it is unclear if this is acute kidney injury versus chronic kidney disease. Based on BUN creatinine ratio leaning more toward this being chronic in nature. Will continue IV fluid hydration and repeat BMP in a.m.. Patient did have mildly elevated troponin but troponins are actually trending downward. There is no evidence of acute cardiac ischemia. Patient may have some mild troponin leak due to sepsis in the setting of chronic kidney disease and history of valve replacement. At the time of my evaluation the patient was encephalopathic. It is unclear if this was due to Ativan administration verses acute sepsis. Will hold any further sedating medications and treat underlying infection. NPO at [place] HIDA scan in am pain meds held in am BB added per cardio heparin gtt until HIDA results discussed w surgery 11/06/21 40mEq of potassium ordered Call received from radiologist HIDA scan positive with positive blood cultures will proceed with ultrasound-guided cholecystostomy cont zosyn
[2021-11-07 18:03] LABS: Alveolar/Arterial O2 Gradient 22.1 mmHg; Base Excess ABG -5.5 mEq/l (+/-2.0); Carboxyhemoglobin 0.2 % THb (0-2.0); Device NASAL CANNULA; Fractional Inspired Oxygen 21 %; HCO3 ABG 20.1 mEq/l (22.0-26.0); Methemoglobin ABG 0.5 %THb (0-1.5); Modified Allen's Test Pass; Oxygen Content ABG 16.4 %vol (16.0-22.0); Oxygen Saturation ABG 95.2 % (95.0-100.0); Oxyhemoglobin 94.6 % THb (90.0-100.0); PCO2 ABG 39.3 mmHg (35.0-45.0); PO2 ABG 80.6 mmHg (80.0-100.0); PO2 FiO2 Ratio Arterial Blood 3.84 %; Reduced Hemoglobin 4.7 %THb (0-5.0); Site Drawn RIGHT RADIAL; Total Hemoglobin 12.3 g/dL (12.0-18.0); pH ABG 7.326 (7.350-7.450)
[2021-11-07 18:30] LABS: Lactic Acid Reflex 0.9 mmol/L (0.7-2.1)
[2021-11-07 20:38] LABS: Glucose Point of Care 147 mg/dl (65-105)
[2021-11-07] MEDS: hydrALAZINE HCL 25 MG TABLET PO (21:34)
[2021-11-07] MEDS: APIXABAN 2.5 MG TABLET PO (21:34)
[2021-11-07] MEDS: ALPRAZolam (*CRX) 0.5 MG TABLET PO (21:34)
[2021-11-07] MEDS: traZODone HCL 50 MG TABLET 200 MG PO (21:34)
[2021-11-07] MEDS: METOPROLOL TARTRATE 50 MG TAB PO (21:38)
[2021-11-08] VITALS (20 sets, daily range): BP systolic 148–163; BP diastolic 59–87; PULSE 72–101; RESP 15–24; TEMP 36.3–37.4; O2SAT 93–98
[2021-11-08] MEDS: ALBUTEROL SULFATE NEB 2.5 MG/0.5 ML INH 5 MG INHALATION ×4 (01:33→20:30)
[2021-11-08] MEDS: IPRATROPIUM BR 0.02% INH SOLN 0.5 MG/2.5 ML VIAL INHALATION ×4 (01:33→20:33)
--- NOTE | 2021-11-08 03:08 | PC.NURSE ---
Daylight Savings Time For Daylight Savings Time Ending in the Fall - Clocks are moved back. For Daylight Savings Time Beginning in the Spring - Clocks are moved ahead. For [facility], the time of change occurs at 0200 hrs. Time is taken from the banquet food server. This entry on the patient's chart recognizes the change in time reflected during documentation. Example: 2 entries for vital signs may be charted for 0200 hrs.
[2021-11-08 05:53] LABS: Add Urine Microscopic? YES; Appearance Urine Cloudy (Clear); Bilirubin Urine Negative (Negative); Blood Urine 2+ (Negative); Budding Yeast Urine Present /hpf; Color Urine Yellow (Yellow); Glucose Urine UA Negative (Negative); Ketones Urine Negative (Negative); Leukocyte Esterase Ur Negative LEU/UL (Negative); Mucus Urine Rare /lpf; Nitrate Urine Negative (Negative); Protein Urine 1+ mg/dL (Negative); RBC Urine >75 /hpf (0-2); Specific Grav Ur 1.019 (1.001-1.035); Squamous Epithelial Cell Urine Rare /hpf (Few); Urobilinogen Urine Negative mg/dL (<2.0)
[2021-11-08] MEDS: DOXYCYCLINE 100 MG/NS 100 ML 100 MG/100 ML BAG IVPB ×2 (05:57→16:59)
[2021-11-08] MEDS: ATORVASTATIN 20 MG TABLET PO (08:18)
[2021-11-08] MEDS: APIXABAN 2.5 MG TABLET PO ×2 (08:18→20:25)
[2021-11-08] MEDS: METOPROLOL TARTRATE 50 MG TAB PO ×2 (08:19→20:25)
[2021-11-08 08:28] LABS: Glucose Point of Care 155 mg/dl (65-105)
[2021-11-08 12:26] LABS: Glucose Point of Care 167 mg/dl (65-105)
--- NOTE | 2021-11-08 12:33 | P.PNIM_ITS ---
Progress Note: A&P Assessment and Plan (1) Atrial fibrillation with RVR: Code(s): I48.91 - Unspecified atrial fibrillation Status: Acute (2) H/O aortic valve replacement: Code(s): Z95.2 - Presence of prosthetic heart valve Status: Acute Assessment and Plan: bovine valve (3) PSVT (paroxysmal supraventricular tachycardia): Code(s): I47.1 - Supraventricular tachycardia Status: Acute (4) Metabolic encephalopathy: Code(s): G93.41 - Metabolic encephalopathy Status: Acute (5) Sepsis: Code(s): A41.9 - Sepsis, unspecified organism Status: Acute (6) Hypoxia: Code(s): R09.02 - Hypoxemia Status: Acute (7) Elevated troponin: Code(s): R77.8 - Other specified abnormalities of plasma proteins Status: Acute (8) Renal insufficiency: Code(s): N28.9 - Disorder of kidney and ureter, unspecified Status: Acute (9) Nonspecific interstitial pneumonia: Code(s): J84.89 - Other specified interstitial pulmonary diseases Status: Acute (10) Acute cholecystitis: Code(s): K81.0 - Acute cholecystitis Status: Acute (11) Hypokalemia: Code(s): E87.6 - Hypokalemia Status: Acute (12) Bacteremia: Code(s): R78.81 - Bacteremia Status: Deleted (13) E coli bacteremia: Code(s): R78.81 - Bacteremia; B96.20 - Unspecified Escherichia coli [E. coli] as the cause of diseases classified elsewhere Status: Acute (14) LISA (acute kidney injury): Code(s): N17.9 - Acute kidney failure, unspecified Status: Acute (15) Pulmonary hypertension: Code(s): I27.20 - Pulmonary hypertension, unspecified Status: Acute (16) History of aortic valve replacement with bioprosthetic valve: Code(s): Z95.3 - Presence of xenogenic heart valve Status: Acute Additional Plan Patient has sepsis given his respiratory symptoms is most likely due to pneumonia. Patient was started on Zosyn initially from the ER due to CT findings concerning for acute cholecystitis. However, patient developed acute hypoxic respiratory failure upon transfer to the intermediate unit and had increasing wheezing and tachypnea. Thusly, I feel pneumonia is more likely especially in the absence of significant right upper quadrant pain. Blood cultures are pending. Will continue Zosyn will add antibiotic coverage with doxycycline. Given the patient's significant wheezing will add scheduled nebulizers with albuterol and Atrovent. Will hold off on giving steroid therapy given patient's fever and sepsis. Will check urine Legionella and urine pneumococcal antigen. Given possible acute cholecystitis noted on CT scan right upper quadrant ultrasound has been ordered. The patient is currently NPO in general surgery has been consulted. On exam the patient has no abdominal pain at this time. Patient does have some renal insufficiency it is unclear if this is acute kidney injury versus chronic kidney disease. Based on BUN creatinine ratio leaning more toward this being chronic in nature. Will continue IV fluid hydration and repeat BMP in a.m.. Patient did have mildly elevated troponin but troponins are actually trending downward. There is no evidence of acute cardiac ischemia. Patient may have some mild troponin leak due to sepsis in the setting of chronic kidney disease and history of valve replacement. At the time of my evaluation the patient was encephalopathic. It is unclear if this was due to Ativan administration verses acute sepsis. Will hold any
[2021-11-08] MEDS: FLUCONAZOLE 100 MG TABLET PO (13:22)
--- NOTE | 2021-11-08 14:00 | PC.NURSE ---
This patient, Reggie Ortiz, was received from IMU on 11/08/21 at 1409. Patient/family oriented to unit policies and routines. Report received from MAXINE Fairbanks.
--- NOTE | 2021-11-08 14:03 | PC.NURSE ---
This patient, Reggie Ortiz, was transferred to [[facility] ] on 11/08/21 at 1356. Personal belongings sent with patient. Report given to [ David]. Appropriate documentation sent with patient.
--- NOTE | 2021-11-08 14:17 | PM.PNGS ---
Progress Note: A&P Assessment and Plan (1) Acute cholecystitis: Code(s): K81.0 - Acute cholecystitis Status: Acute Assessment and Plan: cholecystostomy tube in place. Should provide satisfactory resolution. Patient is still confused and not eating. Possibly due to mental status changes. (2) Atrial fibrillation with RVR: Code(s): I48.91 - Unspecified atrial fibrillation Status: Acute Assessment and Plan: Started on Eliquis last night. (3) Candidal urinary tract infection: Code(s): B37.49 - Other urogenital candidiasis Status: Acute Assessment and Plan: budding yeast noted in urine today. To be started on Diflucan per hospitalist service. (4) E coli bacteremia: Code(s): R78.81 - Bacteremia; B96.20 - Unspecified Escherichia coli [E. coli] as the cause of diseases classified elsewhere Status: Acute Assessment and Plan: Antibiotic treatment continues with Zosyn and doxycycline. Subjective Subjective Date/Time Seen: 11/08/21 14:17 Patient reports: other ( a little more alert but still pretty confused today. No particular complaints.) Interval history: Eating very little. Review of Systems Review of Systems: ROS unobtainable: Yes unobtainable due to mental status Exam Const: General: comfortable, alert, awake and confusion Orientation/consciousness: confusion GI: Inspection: incision ( Minimal drainage from cholecystostomy tube last 24 hours) GI Palp: Yes Soft to palpation, Yes Tenderness to palpation present (GI) ( minimal tenderness, associated with cholecystostomy tube), No Guarding due to palpation present (GI) and No Rebound tenderness present Auscultation: Hypoactive bowel sounds present Extrem: General: no calf tenderness and no edema Objective Data Vital Signs Vital Signs: Vital Signs - 24 hr 11/07/21 13:18 11/07/21 14:00 11/07/21 14:08 Temperature 36.4 C Pulse Rate 86 89 88 Respiratory Rate 18 20 Blood Pressure 175/66 H Pulse Oximetry 97 11/07/21 16:00 11/07/21 17:28 11/07/21 18:00 Temperature 36.7 C Pulse Rate 82 86 87 Respiratory Rate 18 Blood Pressure 159/68 H Pulse Oximetry 96 97 11/07/21 20:00 11/07/21 20:20 11/07/21 20:30 Temperature 36.3 C L Pulse Rate 90 90 90 Respiratory Rate 20 20 20 Blood Pressure 160/84 H Pulse Oximetry 99 97 11/07/21 21:38 11/07/21 22:00 11/07/21 23:52 Temperature 36.7 C Pulse Rate 95 95 91 Respiratory Rate 20 Blood Pressure 162/85 H Pulse Oximetry 100 11/08/21 00:00 11/08/21 01:38 11/08/21 01:48 Temperature Pulse Rate 88 90 90 Respiratory Rate 15 20 20 Blood Pressure Pulse Oximetry 98 11/08/21 04:00 11/08/21 06:00 11/08/21 08:00 Temperature 36.8 C 36.3 C L Pulse Rate 92 88 85 Respiratory Rate 18 24 H Blood Pressure 163/87 H 149/79 H Pulse Oximetry 97 95 11/08/21 08:19 11/08/21 08:57 11/08/21 10:00 Temperature Pulse Rate 98 87 75 Respiratory Rate 18 Blood Pressure Pulse Oximetry 93 11/08/21 12:00 Temperature Pulse Rate 75 Respiratory Rate Blood Pressure Pulse Oximetry 95 Intake/Output Intake/Output: Intake & Output 11/05/21 11/06/21 11/07/21 11/09/21 23:59 23:59 23:59 00:59 Intake Total 4256 1450 2300 550 Output Total 80 1350 Balance 4256 1370 2300 -800 Meds/Results Medications: Active Medications Generic Name Dose Route Start Last Admin Trade Name Freq PRN Reason Stop Dose Admin Albuterol 5 mg 11/04/21 08:00 11/08/21 08:57 Albuterol Sulfate Neb 2.5 Mg/0.5 Ml Inh INHALATION 5 mg Q6HRT GEOVANY Administration Alprazolam 0.5 mg 11/07/21 21:00 11/07/21 21:34 Alprazolam (*Crx) 0.5 Mg Tablet PO 0.5 mg HS GEOVANY Administration Apixaban 2.5 mg 11/07/21 21:00 11/08/21 08:18 Apixaban 2.5 Mg Tablet PO 2.5 mg Q12HR GEOVANY Administration Atorvastatin Calcium 20 mg 11/05/21 09:00 11/08/21 08:18 Atorvastatin 20 Mg Tablet PO 20 mg D
[2021-11-08] MEDS: hydrALAZINE HCL 25 MG TABLET PO (16:05)
[2021-11-08 16:38] LABS: Glucose Point of Care 136 mg/dl (65-105)
--- NOTE | 2021-11-08 17:11 | PM.PNCARD ---
Progress Note: A&P Assessment and Plan (1) Atrial fibrillation with RVR: Code(s): I48.91 - Unspecified atrial fibrillation Status: Acute Assessment and Plan: Episode of new onset paroxysmal AFib with RVR after admission, converted to sinus rhythm on IV diltiazem which has subsequently been discontinued. No doubt AFib exacerbated by acute illness. CHADS2 Vasc score 4. Anticoagulated with Eliquis 2.5 mg b.i.d. Continue oral metoprolol 37.5 mg twice daily. Continue telemetry (2) Elevated troponin: Code(s): R77.8 - Other specified abnormalities of plasma proteins Status: Acute Assessment and Plan: Mild elevation, flat curve not secondary to acute coronary syndrome but type 2 infarction in setting of acute illness, renal failure, advanced age. On left heart catheterization preoperatively 2016 he had no significant coronary artery disease. (3) Acute cholecystitis: Code(s): K81.0 - Acute cholecystitis Status: Acute Assessment and Plan: Per surgical service. Status post cholecystotomy tube and antibiotics, improving. (4) H/O aortic valve replacement: Code(s): Z95.2 - Presence of prosthetic heart valve Status: Acute Assessment and Plan: Normal appearing prosthetic aortic valve by echo, no vegies. (5) Renal insufficiency: Code(s): N28.9 - Disorder of kidney and ureter, unspecified Status: Acute Assessment and Plan: BUN and creatinine have increased slightly. Recheck BMP tomorrow. (6) Metabolic encephalopathy: Code(s): G93.41 - Metabolic encephalopathy Status: Acute Assessment and Plan: Per primary service. Continue antibiotics. Starting treatment for urinary infection (7) Bacteremia: Code(s): R78.81 - Bacteremia Status: Deleted Assessment and Plan: E coli bacteremia blood cultures x2 positive from 11/03/2021. Per primary service and surgery. IV antibiotics. (8) Hypertension: Code(s): I10 - Essential (primary) hypertension Status: Acute Assessment and Plan: Blood pressure remains mildly elevated. Patient's quinapril has not been resumed. Subjective Date/time seen: 11/08/21 17:11 Follow-up for new onset atrial fibrillation with rapid ventricular response. Admitted with acute cholecystitis and E coli bacteremia. History of bioprosthetic aortic valve replacement, followed by Dr. Estrella. 11/06/2021: Patient reverted to sinus rhythm yesterday maintaining sinus rhythm on telemetry. Diltiazem discontinued, oral metoprolol increased. Patient much more confused. E coli bacteremia from blood cultures 11/03/2021. Percutaneous drain planned this afternoon. HIDA scan earlier today consistent with acute cholecystitis. at bedside. Patient rambling incoherently not answering questions appropriately. Date of service 11/07/2021: Patient had a cholecystotomy tube placed yesterday. Tolerating liquids. Patient is weak and rambling; is concerned how to take care of him at home and hopes he can go to rehab. Telemetry shows he is maintaining sinus rhythm. BUN and creatinine are up a little. Echo as below, normal systolic function, does have diastolic dysfunction. Aortic valve replacement appears normal. Date of service 11/08/2021: Not eating well, still confused. Denies pain or SOB. Budding yeast noted in urine, started on Diflucan. Worried at bedside. Review of Systems Constitutional: Constitutional: Reports fatigue and Reports weakness Eyes: Eyes: Reports no additional eye complaints ENT: Reports Normal hearing present and Denies epistaxis Cardiovascular: Cardiovascular: Denies chest pain, Denies pedal edema, Denies leg edema, Denies dyspnea and Denies dyspnea on exertion Respiratory: Respiratory: Denies cough (Chronic dry hacky cough), Denies dyspnea and Denies dyspnea on exertion Gastrointestinal: Gastrointestinal: Denies abdominal pain and D
[2021-11-08] MEDS: traZODone HCL 50 MG TABLET 200 MG PO (20:25)
[2021-11-08] MEDS: ALPRAZolam (*CRX) 0.5 MG TABLET PO (20:25)
[2021-11-08 20:40] LABS: Glucose Point of Care 132 mg/dl (65-105)
[2021-11-08 23:01] LABS: Legionella pneumophila Ag Ur Not Detected (Not Detected)
[2021-11-09] VITALS (18 sets, daily range): BP systolic 138–162; BP diastolic 57–70; PULSE 70–83; RESP 16–19; TEMP 36.6–37.3; O2SAT 92–98
[2021-11-09] MEDS: ALBUTEROL SULFATE NEB 2.5 MG/0.5 ML INH 5 MG INHALATION ×3 (02:22→20:36)
[2021-11-09] MEDS: IPRATROPIUM BR 0.02% INH SOLN 0.5 MG/2.5 ML VIAL INHALATION ×3 (02:22→20:36)
[2021-11-09 06:14] LABS: Anion Gap 5 mmol/L (8-16); Blood Urea Nitrogen 31 mg/dL (9-20); Calcium 8.1 mg/dL (8.4-10.2); Carbon Dioxide 24 mmol/L (22-30); Chloride 113 mmol/L (98-107); Estimated CRCL calculation 31 ml/min; Estimated Glomerular Filt Rate 44; Glucose 127 mg/dL (65-110); Sodium 142 mmol/L (137-145)
[2021-11-09 07:45] LABS: Glucose Point of Care 128 mg/dl (65-105)
--- NOTE | 2021-11-09 07:58 | PM.IMPN ---
Progress Note: A&P Assessment and Plan (1) Atrial fibrillation with RVR: Code(s): I48.91 - Unspecified atrial fibrillation Status: Acute (2) H/O aortic valve replacement: Code(s): Z95.2 - Presence of prosthetic heart valve Status: Acute Assessment and Plan: bovine valve (3) PSVT (paroxysmal supraventricular tachycardia): Code(s): I47.1 - Supraventricular tachycardia Status: Acute (4) Metabolic encephalopathy: Code(s): G93.41 - Metabolic encephalopathy Status: Acute (5) Sepsis: Code(s): A41.9 - Sepsis, unspecified organism Status: Acute (6) Hypoxia: Code(s): R09.02 - Hypoxemia Status: Acute (7) Elevated troponin: Code(s): R77.8 - Other specified abnormalities of plasma proteins Status: Acute (8) Renal insufficiency: Code(s): N28.9 - Disorder of kidney and ureter, unspecified Status: Acute (9) Nonspecific interstitial pneumonia: Code(s): J84.89 - Other specified interstitial pulmonary diseases Status: Acute (10) Acute cholecystitis: Code(s): K81.0 - Acute cholecystitis Status: Acute (11) Hypokalemia: Code(s): E87.6 - Hypokalemia Status: Acute (12) Bacteremia: Code(s): R78.81 - Bacteremia Status: Deleted (13) E coli bacteremia: Code(s): R78.81 - Bacteremia; B96.20 - Unspecified Escherichia coli [E. coli] as the cause of diseases classified elsewhere Status: Acute (14) LISA (acute kidney injury): Code(s): N17.9 - Acute kidney failure, unspecified Status: Acute (15) Pulmonary hypertension: Code(s): I27.20 - Pulmonary hypertension, unspecified Status: Acute (16) History of aortic valve replacement with bioprosthetic valve: Code(s): Z95.3 - Presence of xenogenic heart valve Status: Acute (17) Hypertension: Code(s): I10 - Essential (primary) hypertension Status: Acute (18) Candidal urinary tract infection: Code(s): B37.49 - Other urogenital candidiasis Status: Acute Additional Plan Patient has sepsis given his respiratory symptoms is most likely due to pneumonia. Patient was started on Zosyn initially from the ER due to CT findings concerning for acute cholecystitis. However, patient developed acute hypoxic respiratory failure upon transfer to the intermediate unit and had increasing wheezing and tachypnea. Thusly, I feel pneumonia is more likely especially in the absence of significant right upper quadrant pain. Blood cultures are pending. Will continue Zosyn will add antibiotic coverage with doxycycline. Given the patient's significant wheezing will add scheduled nebulizers with albuterol and Atrovent. Will hold off on giving steroid therapy given patient's fever and sepsis. Will check urine Legionella and urine pneumococcal antigen. Given possible acute cholecystitis noted on CT scan right upper quadrant ultrasound has been ordered. The patient is currently NPO in general surgery has been consulted. On exam the patient has no abdominal pain at this time. Patient does have some renal insufficiency it is unclear if this is acute kidney injury versus chronic kidney disease. Based on BUN creatinine ratio leaning more toward this being chronic in nature. Will continue IV fluid hydration and repeat BMP in a.m.. Patient did have mildly elevated troponin but troponins are actually trending downward. There is no evidence of acute cardiac ischemia. Patient may have some mild troponin leak due to sepsis in the setting of chronic kidney disease and history of valve replacement. At the time of my evaluation the patient was encephalopathic. It is unclear if this was due to Ativan administration verses acute sepsis. Will hold any further sedating medications and treat underlying infection. NPO at [place] HIDA scan in am pain meds held in am BB added per cardio heparin gtt until HIDA
[2021-11-09 08:04] LABS: Basophils Absolute Auto 0.1 K/mm3 (0.0-0.1); Basophils Percent Auto 0.8 % (0.2-1.2); Eosinophils Absolute Auto 0.8 K/mm3 (0-0.3); Eosinophils Percent Auto 6.3 % (0-4.4); Hematocrit 33.4 % (42.0-52.0); Hemoglobin 10.8 g/dL (14.0-18.0); Immature Granulocyte Absolute 0.28 K/mm3 (0.00-0.031); Immature Granulocyte Percent A 2.3 % (0-0.5); Lymphocytes Absolute Auto 2.48 K/mm3 (0.9-3.2); Lymphocytes Percent Auto 20.7 % (18.3-44.2); Mean Corpuscular HGB Conc 32.3 g/dl (32-36); Mean Corpuscular Hemoglobin 29.8 pg (26-34); Mean Platelet Volume 10.9 fl (7.4-10.4); Monocytes Absolute Auto 0.9 K/mm3 (0.1-0.6); Monocytes Percent Auto 7.8 % (2.6-8.5); Neutrophils Absolute Auto 7.4 K/mm3 (1.3-6.7); Neutrophils Percent Auto 62.1 % (45.5-73.1); Platelet Count Result 297 k/mm3 (150-375); Red Blood Count 3.63 M/mm3 (4.6-6.20); Red Cell Distribution Width 15.2 % (11.5-14.5)
[2021-11-09 08:10] LABS: Magnesium 2.2 mg/dL (1.6-2.3)
[2021-11-09] MEDS: APIXABAN 2.5 MG TABLET PO ×2 (09:22→21:05)
[2021-11-09] MEDS: ATORVASTATIN 20 MG TABLET PO (09:22)
[2021-11-09] MEDS: METOPROLOL TARTRATE 50 MG TAB PO ×2 (09:22→21:05)
[2021-11-09] MEDS: FLUCONAZOLE 100 MG TABLET PO (09:22)
--- NOTE | 2021-11-09 09:24 | PM.PNCARD ---
Progress Note: A&P Assessment and Plan (1) Atrial fibrillation with RVR: Code(s): I48.91 - Unspecified atrial fibrillation Status: Acute Assessment and Plan: Episode of new onset paroxysmal AFib with RVR after admission, converted to sinus rhythm on IV diltiazem which has subsequently been discontinued. No doubt AFib exacerbated by acute illness. CHADS2 Vasc score 4. Anticoagulated with Eliquis 2.5 mg b.i.d. Continue oral metoprolol 37.5 mg twice daily. Continue telemetry (2) Elevated troponin: Code(s): R77.8 - Other specified abnormalities of plasma proteins Status: Acute Assessment and Plan: Mild elevation, flat curve not secondary to acute coronary syndrome but type 2 infarction in setting of acute illness, renal failure, advanced age. On left heart catheterization preoperatively 2016 he had no significant coronary artery disease. (3) Acute cholecystitis: Code(s): K81.0 - Acute cholecystitis Status: Acute Assessment and Plan: Per surgical service. Status post cholecystotomy tube and antibiotics, improving. (4) H/O aortic valve replacement: Code(s): Z95.2 - Presence of prosthetic heart valve Status: Acute Assessment and Plan: Normal appearing prosthetic aortic valve by echo, no vegies. (5) Renal insufficiency: Code(s): N28.9 - Disorder of kidney and ureter, unspecified Status: Acute Assessment and Plan: BUN and creatinine trending down today. (6) Metabolic encephalopathy: Code(s): G93.41 - Metabolic encephalopathy Status: Acute Assessment and Plan: Per primary service. Continue antibiotics. (7) Bacteremia: Code(s): R78.81 - Bacteremia Status: Deleted Assessment and Plan: E coli bacteremia blood cultures x2 positive from 11/03/2021. Per primary service and surgery. IV antibiotics. (8) Hypertension: Code(s): I10 - Essential (primary) hypertension Status: Acute Assessment and Plan: Blood pressure remains mildly elevated. Patient's quinapril has not been resumed. Subjective Date/time seen: 11/09/21 09:24 Cardiology follow up for Afib He is feeling well this morning. Does have some mild abdominal pain. He denies any chest pain, palpitations, shortness of breath. He remains somewhat confused. Review of Systems Review of Systems: All systems reviewed & are unremarkable except as noted in HPI and below Constitutional: Constitutional: Reports as per HPI, Reports no additional constitutional complaints, Reports fatigue, Reports fever(s) and Reports weakness Eyes: Eyes: Reports as per HPI and Reports no additional eye complaints ENT: Reports system reviewed and no additional complaints, except as documented, Reports as per HPI, Reports Normal hearing present and Denies epistaxis Cardiovascular: Cardiovascular: Reports as per HPI, Reports no additional cardiovascular complaints, Denies chest pain, Denies chest pain with activity, Denies pedal edema, Denies leg edema, Denies palpitations, Denies dyspnea and Denies dyspnea on exertion Respiratory: Respiratory: Reports as per HPI, Reports no additional respiratory complaints, Denies cough (Chronic dry hacky cough), Denies dyspnea, Denies dyspnea on exertion and Denies wheezing Gastrointestinal: Gastrointestinal: Reports as per HPI, Reports no additional gastrointestinal complaints, Denies abdominal pain and Denies nausea Genitourinary: Genitourinary: Reports no additional male genitourinary complaints, Reports as per HPI and Denies dysuria Musculoskeletal: Musculoskeletal: Reports no additional musculoskeletal complaints and Reports as per HPI Integumentary/Breasts: Skin/Breast: Reports system reviewed and no additional complaints, except as docu, Reports as per HPI and Denies rash Neurologic: Reports system reviewed and no additional complaints, except as documented, Reports as per HPI, Reports Normal hear
[2021-11-09] MEDS: POTASSIUM CHLORIDE 20 MEQ PACKET (FOR LIQUID) 40 MEQ PO (09:27)
[2021-11-09 11:42] LABS: Glucose Point of Care 132 mg/dl (65-105)
--- NOTE | 2021-11-09 13:30 | PM.PNGS ---
Progress Note: A&P Assessment and Plan (1) Acute cholecystitis: Code(s): K81.0 - Acute cholecystitis Status: Acute Assessment and Plan: S/p cholecystostomy tube placement, continue to monitor. Bile cultures pending - gram stain showed WBC and gram negative rods. Continue IV Zosyn. WBC continues to trend down. Patient reporting poor appetite, but he feels like he is up to trying to eat better for lunch. Continue regular diet. (2) Atrial fibrillation with RVR: Code(s): I48.91 - Unspecified atrial fibrillation Status: Acute Assessment and Plan: Cardiology following. Currently on Eliquis for anticoagulation. (3) Candidal urinary tract infection: Code(s): B37.49 - Other urogenital candidiasis Status: Acute Assessment and Plan: U/A on 11/08 showed budding yeast - he was started on fluconazole per Hospitalist. (4) E coli bacteremia: Code(s): R78.81 - Bacteremia; B96.20 - Unspecified Escherichia coli [E. coli] as the cause of diseases classified elsewhere Status: Acute Assessment and Plan: E coli positive blood cx 2/. Continue IV Zosyn. Additional Plan I have discussed the plan of care with Dr. Espinal. Subjective Subjective Date/Time Seen: 11/09/21 11:20 Patient reports: no new complaints, flatus, bowel movement (large BM today) and afebrile Interval history: Patient seen and examined. Chart reviewed since last seen. His is at the bedside. He denies any specific complaints at the time of my exam. He denies abdominal pain, nausea, vomiting, or bloating. He has had a poor appetite and is not taking in much at meals, but he feels like nothing tastes good . Cholecystostomy tube with 25 cc documented output last night. Review of Systems Review of Systems: All systems reviewed & are unremarkable except as noted in HPI and below Exam Const: General: comfortable, no acute distress and awake Orientation/consciousness: patient oriented x3 GI: Inspection: non-distended GI Palp: Yes Soft to palpation, Yes Tenderness to palpation present (GI) (very mildly tender at perc drain site, otherwise no tenderness), No Guarding due to palpation present (GI) and No Rebound tenderness present Auscultation: normal bowel sounds Other: Cholecystostomy drain with minimal pale-colored cloudy yellow drainage. Dressing dry and intact. Neuro: General: moves all extremities and no focal motor deficits Extrem: General: no calf tenderness and no edema Psych: Insight: Fair insight present (Psych) Judgement: Fair judgement present (Psych) Objective Data Vital Signs Vital Signs: Vital Signs - 24 hr 11/08/21 14:00 11/08/21 14:57 11/08/21 15:35 Temperature 98.1 F Pulse Rate 83 87 Respiratory Rate 18 18 Blood Pressure 148/59 H 152/64 H Pulse Oximetry 98 11/08/21 16:05 11/08/21 19:51 11/08/21 20:00 Temperature 99.3 F Pulse Rate 88 83 89 Respiratory Rate 18 16 Blood Pressure 151/62 H Pulse Oximetry 97 96 11/08/21 20:25 11/08/21 20:34 11/08/21 20:36 Temperature Pulse Rate 90 85 Respiratory Rate 16 Blood Pressure Pulse Oximetry 96 11/08/21 20:43 11/09/21 00:00 11/09/21 02:24 Temperature Pulse Rate 89 77 80 Respiratory Rate 16 16 Blood Pressure Pulse Oximetry 11/09/21 02:31 11/09/21 03:20 11/09/21 04:00 Temperature 99.1 F Pulse Rate 83 82 79 Respiratory Rate 16 17 Blood Pressure 154/64 H Pulse Oximetry 92 11/09/21 07:50 11/09/21 08:00 11/09/21 08:01 Temperature Pulse Rate 78 80 80 Respiratory Rate 16 16 16 Blood Pressure Pulse Oximetry 98 98 11/09/21 12:00 Temperature Pulse Rate 72 Respiratory Rate Blood Pressure Pulse Oximetry Intake/Output Intake/Output: Intake & Output 11/06/21 11/07/21 11/08/21 11/09/21 22:59 22:59 23:59 23:59 Intake Total 390 Output Total 1675 Balance -1285 Meds/Results Medications: Active Medications Generic Name Dose Rout
--- NOTE | 2021-11-09 15:22 | PCRCNOTE ---
Window of time for administration has passed. See next scheduled administration.
[2021-11-09] MEDS: hydrALAZINE HCL 25 MG TABLET PO ×2 (16:06→23:39)
[2021-11-09] MEDS: POTASSIUM CHLORIDE 20 MEQ TABLET PO (16:06)
[2021-11-09] MEDS: amLODIPine BESYLATE 5 MG TABLET PO (16:17)
[2021-11-09 16:43] LABS: Glucose Point of Care 145 mg/dl (65-105)
[2021-11-09 19:48] LABS: Glucose Point of Care 117 mg/dl (65-105)
[2021-11-09] MEDS: traZODone HCL 50 MG TABLET 200 MG PO (21:06)
[2021-11-09] MEDS: ALPRAZolam (*CRX) 0.5 MG TABLET PO (21:06)
[2021-11-10] VITALS (22 sets, daily range): BP systolic 130–157; BP diastolic 52–76; PULSE 66–86; RESP 16–20; TEMP 36.1–36.8; O2SAT 94–97
[2021-11-10] MEDS: ALBUTEROL SULFATE NEB 2.5 MG/0.5 ML INH 5 MG INHALATION ×4 (02:14→20:25)
[2021-11-10] MEDS: IPRATROPIUM BR 0.02% INH SOLN 0.5 MG/2.5 ML VIAL INHALATION ×4 (02:15→20:25)
[2021-11-10 05:47] LABS: Basophils Absolute Auto 0.1 K/mm3 (0.0-0.1); Eosinophils Absolute Auto 0.7 K/mm3 (0-0.3); Hematocrit 34.8 % (42.0-52.0); Hemoglobin 11.5 g/dL (14.0-18.0); Immature Granulocyte Absolute 0.49 K/mm3 (0.00-0.031); Immature Granulocyte Percent A 4.3 % (0-0.5); Lymphocytes Absolute Auto 2.31 K/mm3 (0.9-3.2); Lymphocytes Percent Auto 20.3 % (18.3-44.2); Mean Corpuscular Hemoglobin 30.3 pg (26-34); Mean Corpuscular Volume 91.6 fl (80-100); Mean Platelet Volume 10.3 fl (7.4-10.4); Monocytes Percent Auto 8.5 % (2.6-8.5); Neutrophils Absolute Auto 6.8 K/mm3 (1.3-6.7); Neutrophils Percent Auto 59.9 % (45.5-73.1); Platelet Count Result 332 k/mm3 (150-375); White Blood Count 11.4 K/mm3 (4.5-10.0)
[2021-11-10 05:59] LABS: Alanine Aminotransferase 27 U/L (4-50); Alkaline Phosphatase 157 U/L (38-126); Anion Gap 5 mmol/L (8-16); Aspartate Amino Transferase 57 U/L (17-59); Bilirubin,Total 0.7 mg/dL (0.2-1.3); Blood Urea Nitrogen 23 mg/dL (9-20); Calcium 8.4 mg/dL (8.4-10.2); Carbon Dioxide 27 mmol/L (22-30); Chloride 111 mmol/L (98-107); Estimated CRCL calculation 39 ml/min; Estimated Glomerular Filt Rate 57; Glucose 126 mg/dL (65-110); Potassium 3.3 mmol/L (3.4-5.0); Sodium 143 mmol/L (137-145)
[2021-11-10 06:49] LABS: Atypical Lymphocytes Present; Platelet Estimate Adequate (Adequate)
[2021-11-10] MEDS: APIXABAN 2.5 MG TABLET PO (09:19)
[2021-11-10] MEDS: ATORVASTATIN 20 MG TABLET PO (09:19)
[2021-11-10] MEDS: METOPROLOL TARTRATE 50 MG TAB PO ×2 (09:19→20:12)
[2021-11-10] MEDS: hydrALAZINE HCL 25 MG TABLET PO (09:20)
[2021-11-10] MEDS: amLODIPine BESYLATE 5 MG TABLET PO (09:21)
[2021-11-10] MEDS: FLUCONAZOLE 100 MG TABLET PO (09:21)
[2021-11-10] MEDS: POTASSIUM CHLORIDE 20 MEQ TABLET 40 MEQ PO (09:26)
--- NOTE | 2021-11-10 11:06 | PM.PNCARD ---
Progress Note: A&P Assessment and Plan (1) Atrial fibrillation with RVR: Code(s): I48.91 - Unspecified atrial fibrillation Status: Acute Assessment and Plan: Episode of new onset paroxysmal AFib with RVR after admission, converted to sinus rhythm on IV diltiazem which has subsequently been discontinued. No doubt AFib exacerbated by acute illness. CHADS2 Vasc score 4. Anticoagulated with Eliquis. His creatinine has normalized, so his dose can be increased to the 5mg b.i.d dose. Continue oral metoprolol 37.5 mg twice daily. Continue telemetry (2) Elevated troponin: Code(s): R77.8 - Other specified abnormalities of plasma proteins Status: Acute Assessment and Plan: Mild elevation, flat curve not secondary to acute coronary syndrome but type 2 infarction in setting of acute illness, renal failure, advanced age. On left heart catheterization preoperatively 2016 he had no significant coronary artery disease. (3) Acute cholecystitis: Code(s): K81.0 - Acute cholecystitis Status: Acute Assessment and Plan: Per surgical service. Status post cholecystotomy tube and antibiotics, improving. (4) H/O aortic valve replacement: Code(s): Z95.2 - Presence of prosthetic heart valve Status: Acute Assessment and Plan: Normal appearing prosthetic aortic valve by echo, no vegies. (5) Renal insufficiency: Code(s): N28.9 - Disorder of kidney and ureter, unspecified Status: Acute Assessment and Plan: BUN and creatinine trending down today. (6) Metabolic encephalopathy: Code(s): G93.41 - Metabolic encephalopathy Status: Acute Assessment and Plan: Per primary service. Continue antibiotics. (7) Hypertension: Code(s): I10 - Essential (primary) hypertension Status: Acute Assessment and Plan: Blood pressure remains mildly elevated. Patient's quinapril has not been resumed. Subjective Date/time seen: 11/10/21 11:06 Cardiology follow up for Afib He's doing better today, mental status is more clear. Denies any chest pain, palpitations. No abdominal pain. He has a complaint of a dry cough. Review of Systems Review of Systems: All systems reviewed & are unremarkable except as noted in HPI and below Constitutional: Constitutional: Reports as per HPI, Reports no additional constitutional complaints, Reports fatigue, Reports fever(s) and Reports weakness Eyes: Eyes: Reports as per HPI and Reports no additional eye complaints ENT: Reports system reviewed and no additional complaints, except as documented, Reports as per HPI, Reports Normal hearing present and Denies epistaxis Cardiovascular: Cardiovascular: Reports as per HPI, Reports no additional cardiovascular complaints, Denies chest pain, Denies chest pain with activity, Denies pedal edema, Denies leg edema, Denies palpitations, Denies dyspnea and Denies dyspnea on exertion Respiratory: Respiratory: Reports as per HPI, Reports no additional respiratory complaints, Denies cough (Chronic dry hacky cough), Denies dyspnea, Denies dyspnea on exertion and Denies wheezing Gastrointestinal: Gastrointestinal: Reports as per HPI, Reports no additional gastrointestinal complaints, Denies abdominal pain and Denies nausea Genitourinary: Genitourinary: Reports no additional male genitourinary complaints, Reports as per HPI and Denies dysuria Musculoskeletal: Musculoskeletal: Reports no additional musculoskeletal complaints and Reports as per HPI Integumentary/Breasts: Skin/Breast: Reports system reviewed and no additional complaints, except as docu, Reports as per HPI and Denies rash Neurologic: Reports system reviewed and no additional complaints, except as documented, Reports as per HPI, Reports Normal hearing present, Reports confusion and Reports weakness Psychiatric: Psychiatric: Reports no additional psychiatric complaints, Reports as per HPI and Reports confusi
[2021-11-10] MEDS: BENZONATATE 100 MG CAPSULE 200 MG PO ×2 (12:21→17:00)
--- NOTE | 2021-11-10 12:53 | PM.PNGS ---
Progress Note: A&P Assessment and Plan (1) Acute cholecystitis: Code(s): K81.0 - Acute cholecystitis Status: Acute Assessment and Plan: S/p cholecystostomy tube placement 11/06, continue to monitor. Bile cultures pending - gram stain showed WBC and gram negative rods. Continue IV Zosyn. WBC continues to trend down. Continue regular diet, supplements added. (2) Atrial fibrillation with RVR: Code(s): I48.91 - Unspecified atrial fibrillation Status: Acute Assessment and Plan: Cardiology following. Currently on Eliquis for anticoagulation. (3) Candidal urinary tract infection: Code(s): B37.49 - Other urogenital candidiasis Status: Acute Assessment and Plan: U/A on 11/08 showed budding yeast - he was started on fluconazole per Hospitalist. (4) E coli bacteremia: Code(s): R78.81 - Bacteremia; B96.20 - Unspecified Escherichia coli [E. coli] as the cause of diseases classified elsewhere Status: Acute Assessment and Plan: E coli positive blood cx /. Continue IV Zosyn. Additional Plan I have discussed the plan of care with Dr. Espinal. Subjective Subjective Date/Time Seen: 11/10/21 12:53 Patient reports: no new complaints, tolerating a regular diet, flatus, bowel movement and afebrile Interval history: Patient seen and examined with his at the bedside. He is alert and oriented. He denies any new complaints. Still denying abdominal pain, nausea, vomiting, or bloating. No documented output from the cholecystostomy tube last night. The nurse reports flushing the cholecystostomy tube today with normal saline and felt there was sediment in the drain where the tubing connected to the drainage bag. This appears to be draining well and now has 20-30 cc in the bag on my exam. Still does not have much of an appetite, but has been trying to drink his supplements during the day and reportedly ate better for lunch. Review of Systems Review of Systems: All systems reviewed & are unremarkable except as noted in HPI and below Exam Const: General: comfortable, no acute distress and awake Orientation/consciousness: patient oriented x3 GI: Inspection: non-distended GI Palp: Yes Soft to palpation, No Tenderness to palpation present (GI) and No Guarding due to palpation present (GI) Auscultation: normal bowel sounds Other: Cholecystostomy drain with minimal pale-colored cloudy yellow drainage. Dressing dry and intact. Neuro: General: moves all extremities and no focal motor deficits Extrem: General: normal to inspection Psych: Insight: Fair insight present (Psych) Judgement: Fair judgement present (Psych) Objective Data Vital Signs Vital Signs: Vital Signs - 24 hr 11/09/21 14:25 11/09/21 16:00 11/09/21 17:46 Temperature 98.8 F Pulse Rate 70 70 Respiratory Rate 18 Blood Pressure 162/57 H 138/67 Pulse Oximetry 96 11/09/21 20:00 11/09/21 20:37 11/09/21 20:39 Temperature Pulse Rate 80 78 Respiratory Rate 16 16 Blood Pressure Pulse Oximetry 96 96 11/09/21 20:47 11/09/21 21:05 11/09/21 22:42 Temperature 97.8 F Pulse Rate 77 80 80 Respiratory Rate 16 19 Blood Pressure 150/70 H Pulse Oximetry 98 11/10/21 00:00 11/10/21 01:00 11/10/21 02:15 Temperature Pulse Rate 82 79 Respiratory Rate 16 Blood Pressure 150/76 H Pulse Oximetry 11/10/21 02:25 11/10/21 02:33 11/10/21 04:00 Temperature 97.9 F Pulse Rate 71 84 69 Respiratory Rate 16 18 Blood Pressure 150/76 H Pulse Oximetry 97 11/10/21 08:00 11/10/21 08:30 11/10/21 08:37 Temperature Pulse Rate 83 73 75 Respiratory Rate 16 16 16 Blood Pressure Pulse Oximetry 96 95 95 11/10/21 09:01 11/10/21 12:22 Temperature 97.8 F Pulse Rate 83 Respiratory Rate 16 Blood Pressure 157/73 H 140/63 Pulse Oximetry 96 Intake/Output Intake/Output: Intake & Output 11/07/21 11/08/21 11/09/21 11/10/21 22:59 23:59 23:59 23:
--- NOTE | 2021-11-10 16:21 | P.PNIM_ITS ---
Progress Note: A&P Assessment and Plan (1) Atrial fibrillation with RVR: Code(s): I48.91 - Unspecified atrial fibrillation Status: Acute (2) H/O aortic valve replacement: Code(s): Z95.2 - Presence of prosthetic heart valve Status: Acute Assessment and Plan: bovine valve (3) PSVT (paroxysmal supraventricular tachycardia): Code(s): I47.1 - Supraventricular tachycardia Status: Acute (4) Metabolic encephalopathy: Code(s): G93.41 - Metabolic encephalopathy Status: Acute (5) Sepsis: Code(s): A41.9 - Sepsis, unspecified organism Status: Acute (6) Hypoxia: Code(s): R09.02 - Hypoxemia Status: Acute (7) Elevated troponin: Code(s): R77.8 - Other specified abnormalities of plasma proteins Status: Acute (8) Renal insufficiency: Code(s): N28.9 - Disorder of kidney and ureter, unspecified Status: Acute (9) Nonspecific interstitial pneumonia: Code(s): J84.89 - Other specified interstitial pulmonary diseases Status: Acute (10) Acute cholecystitis: Code(s): K81.0 - Acute cholecystitis Status: Acute (11) Hypokalemia: Code(s): E87.6 - Hypokalemia Status: Acute (12) Bacteremia: Code(s): R78.81 - Bacteremia Status: Deleted (13) E coli bacteremia: Code(s): R78.81 - Bacteremia; B96.20 - Unspecified Escherichia coli [E. coli] as the cause of diseases classified elsewhere Status: Acute (14) LISA (acute kidney injury): Code(s): N17.9 - Acute kidney failure, unspecified Status: Acute (15) Pulmonary hypertension: Code(s): I27.20 - Pulmonary hypertension, unspecified Status: Acute (16) History of aortic valve replacement with bioprosthetic valve: Code(s): Z95.3 - Presence of xenogenic heart valve Status: Acute (17) Hypertension: Code(s): I10 - Essential (primary) hypertension Status: Acute (18) Candidal urinary tract infection: Code(s): B37.49 - Other urogenital candidiasis Status: Acute Additional Plan Patient has sepsis given his respiratory symptoms is most likely due to pneumonia. Patient was started on Zosyn initially from the ER due to CT findings concerning for acute cholecystitis. However, patient developed acute hypoxic respiratory failure upon transfer to the intermediate unit and had increasing wheezing and tachypnea. Thusly, I feel pneumonia is more likely especially in the absence of significant right upper quadrant pain. Blood cultures are pending. Will continue Zosyn will add antibiotic coverage with doxycycline. Given the patient's significant wheezing will add scheduled nebulizers with albuterol and Atrovent. Will hold off on giving steroid therapy given patient's fever and sepsis. Will check urine Legionella and urine pneumococcal antigen. Given possible acute cholecystitis noted on CT scan right upper quadrant ultrasound has been ordered. The patient is currently NPO in general surgery has been consulted. On exam the patient has no abdominal pain at this time. Patient does have some renal insufficiency it is unclear if this is acute kidney injury versus chronic kidney disease. Based on BUN creatinine ratio leaning more toward this being chronic in nature. Will continue IV fluid hydration and repeat BMP in a.m.. Patient did have mildly elevated troponin but troponins are actually trending downward. There is no evidence of acute cardiac ischemia. Patient may have some mild troponin leak due to sepsis in t
[2021-11-10] MEDS: ALPRAZolam (*CRX) 0.5 MG TABLET PO (20:12)
[2021-11-10] MEDS: traZODone HCL 50 MG TABLET 200 MG PO (20:12)
[2021-11-10] MEDS: APIXABAN 5 MG TABLET PO (20:12)
[2021-11-10 22:21] LABS: Glucose Point of Care 140 mg/dl (65-105)
[2021-11-11] VITALS (24 sets, daily range): BP systolic 102–152; BP diastolic 58–68; PULSE 66–89; RESP 18; TEMP 35.9–37.2; O2SAT 94–96; BMI 32.3
[2021-11-11] MEDS: ALBUTEROL SULFATE NEB 2.5 MG/0.5 ML INH 5 MG INHALATION ×4 (01:54→20:20)
[2021-11-11] MEDS: IPRATROPIUM BR 0.02% INH SOLN 0.5 MG/2.5 ML VIAL INHALATION ×4 (01:54→20:20)
[2021-11-11 07:55] LABS: Glucose Point of Care 125 mg/dl (65-105)
[2021-11-11] MEDS: amLODIPine BESYLATE 5 MG TABLET PO (08:18)
[2021-11-11] MEDS: ATORVASTATIN 20 MG TABLET PO (08:18)
[2021-11-11] MEDS: hydrALAZINE HCL 25 MG TABLET PO (08:18)
[2021-11-11] MEDS: METOPROLOL TARTRATE 50 MG TAB PO ×2 (08:18→20:47)
[2021-11-11] MEDS: APIXABAN 5 MG TABLET PO ×2 (08:18→20:47)
[2021-11-11] MEDS: FLUCONAZOLE 100 MG TABLET PO (08:18)
[2021-11-11] MEDS: BENZONATATE 100 MG CAPSULE 200 MG PO ×3 (08:19→17:02)
--- NOTE | 2021-11-11 10:39 | PM.PNGS ---
Progress Note: A&P Assessment and Plan (1) Acute cholecystitis: Code(s): K81.0 - Acute cholecystitis Status: Acute Assessment and Plan: S/p cholecystostomy tube placement 11/06, plan for patient to discharge with this in place. Bile cultures pending, gram stain showed gram negative bacilli. Continue regular diet, supplements added. Continue antibiotics, okay to switch to oral antibiotics and discharge to SNF from our standpoint when okay with other services. We will schedule the patient for a cholangiogram through the cholecystostomy tube 4 weeks after placement and follow-up with him the week after. Per CC he is approved to go to [facility] on discharge. (2) Atrial fibrillation with RVR: Code(s): I48.91 - Unspecified atrial fibrillation Status: Acute Assessment and Plan: Currently on Eliquis for anticoagulation. (3) Candidal urinary tract infection: Code(s): B37.49 - Other urogenital candidiasis Status: Acute Assessment and Plan: U/A on 11/08 showed budding yeast - on fluconazole per Hospitalist. (4) E coli bacteremia: Code(s): R78.81 - Bacteremia; B96.20 - Unspecified Escherichia coli [E. coli] as the cause of diseases classified elsewhere Status: Acute Assessment and Plan: E coli positive blood cx / with sensitivities noted. Okay to switch to oral antibiotics from our standpoint for discharge. Additional Plan I have discussed the plan of care with Dr. Espinal. Subjective Subjective Date/Time Seen: 11/11/21 08:39 Patient reports: no new complaints, tolerating a regular diet, flatus, bowel movement (yesterday) and afebrile Interval history: Patient seen and examined today. He reports no new changes. Still denies any abdominal pain, nausea, vomiting, or bloating. He feels he is eating better and doing well with the supplements. Review of Systems Review of Systems: All systems reviewed & are unremarkable except as noted in HPI and below Exam Const: General: comfortable, no acute distress and awake Orientation/consciousness: patient oriented x3 GI: Inspection: non-distended and incision ( Minimal drainage from cholecystostomy tube last 24 hours) GI Palp: Yes Soft to palpation, No Tenderness to palpation present (GI) and No Guarding due to palpation present (GI) Auscultation: normal bowel sounds Other: Cholecystostomy drain with minimal pale-colored cloudy yellow drainage. Dressing dry and intact. Neuro: General: moves all extremities and no focal motor deficits Extrem: General: no calf tenderness and no edema Psych: Insight: Fair insight present (Psych) Judgement: Fair judgement present (Psych) Objective Data Vital Signs Vital Signs: Vital Signs - 24 hr 11/10/21 12:00 11/10/21 12:22 11/10/21 13:55 Temperature Pulse Rate 66 77 Respiratory Rate 16 Blood Pressure 140/63 Pulse Oximetry 11/10/21 14:04 11/10/21 14:47 11/10/21 16:00 Temperature 98.3 F Pulse Rate 79 80 82 Respiratory Rate 16 16 Blood Pressure 130/52 L Pulse Oximetry 97 11/10/21 19:58 11/10/21 20:00 11/10/21 20:12 Temperature 97 F L Pulse Rate 77 75 76 Respiratory Rate 20 Blood Pressure 145/72 H Pulse Oximetry 97 11/10/21 20:20 11/10/21 20:26 11/10/21 20:27 Temperature Pulse Rate 82 86 Respiratory Rate 17 Blood Pressure Pulse Oximetry 94 11/11/21 00:00 11/11/21 00:40 11/11/21 01:54 Temperature 97 F L Pulse Rate 68 71 70 Respiratory Rate 18 Blood Pressure 140/63 Pulse Oximetry 95 11/11/21 02:01 11/11/21 04:00 11/11/21 05:06 Temperature 96.7 F L Pulse Rate 72 74 84 Respiratory Rate 18 Blood Pressure 152/67 H Pulse Oximetry 94 11/11/21 08:00 11/11/21 09:02 11/11/21 09:05 Temperature Pulse Rate 84 76 Respiratory Rate 18 18 Blood Pressure Pulse Oximetry 94 95 11/11/21 09:09 Temperature Pulse Rate 75 Respiratory Rate 18 Blood Pressure Pulse Oximetr
[2021-11-11] MEDS: traZODone HCL 50 MG TABLET 200 MG PO (20:46)
[2021-11-11] MEDS: ALPRAZolam (*CRX) 0.5 MG TABLET PO (20:46)
[2021-11-12] VITALS (12 sets, daily range): BP systolic 109–158; BP diastolic 54–65; PULSE 65–85; RESP 16–20; TEMP 36.3–37.4; O2SAT 93–97
[2021-11-12] MEDS: ALBUTEROL SULFATE NEB 2.5 MG/0.5 ML INH 5 MG INHALATION ×2 (01:30→09:08)
[2021-11-12] MEDS: IPRATROPIUM BR 0.02% INH SOLN 0.5 MG/2.5 ML VIAL INHALATION ×2 (01:31→09:08)
[2021-11-12] MEDS: APIXABAN 5 MG TABLET PO (09:39)
[2021-11-12] MEDS: amLODIPine BESYLATE 5 MG TABLET PO (09:39)
[2021-11-12] MEDS: BENZONATATE 100 MG CAPSULE 200 MG PO (09:39)
[2021-11-12] MEDS: ATORVASTATIN 20 MG TABLET PO (09:39)
[2021-11-12] MEDS: METOPROLOL TARTRATE 50 MG TAB PO (09:39)
[2021-11-12 09:52] LABS: Hematocrit 36.1 % (42.0-52.0); Hemoglobin 11.9 g/dL (14.0-18.0); Mean Corpuscular Volume 90.9 fl (80-100); Mean Platelet Volume 10.3 fl (7.4-10.4); Platelet Count Result 392 k/mm3 (150-375); Red Blood Count 3.97 M/mm3 (4.6-6.20); Red Cell Distribution Width 14.7 % (11.5-14.5)
[2021-11-12 10:09] LABS: Anion Gap 4 mmol/L (8-16); Blood Urea Nitrogen 21 mg/dL (9-20); Calcium 8.2 mg/dL (8.4-10.2); Carbon Dioxide 29 mmol/L (22-30); Chloride 102 mmol/L (98-107); Estimated CRCL calculation 42 ml/min; Estimated Glomerular Filt Rate > 60; Glucose 133 mg/dL (65-110); Magnesium 1.8 mg/dL (1.6-2.3); Potassium 3.8 mmol/L (3.4-5.0); Sodium 135 mmol/L (137-145)
--- NOTE | 2021-11-12 10:43 | PM.DS ---
DS: Admitting Diagnosis Discharge Date 11/12/2021 Admitting Diagnosis Multiple complaints DS: Discharge Diagnosis Discharge Diagnosis (1) Atrial fibrillation with RVR: Code(s): I48.91 - Unspecified atrial fibrillation Status: Acute (2) H/O aortic valve replacement: Code(s): Z95.2 - Presence of prosthetic heart valve Status: Acute Assessment and Plan: bovine valve (3) PSVT (paroxysmal supraventricular tachycardia): Code(s): I47.1 - Supraventricular tachycardia Status: Acute (4) Metabolic encephalopathy: Code(s): G93.41 - Metabolic encephalopathy Status: Acute (5) Sepsis: Code(s): A41.9 - Sepsis, unspecified organism Status: Acute (6) Hypoxia: Code(s): R09.02 - Hypoxemia Status: Acute (7) Elevated troponin: Code(s): R77.8 - Other specified abnormalities of plasma proteins Status: Acute (8) Renal insufficiency: Code(s): N28.9 - Disorder of kidney and ureter, unspecified Status: Acute (9) Nonspecific interstitial pneumonia: Code(s): J84.89 - Other specified interstitial pulmonary diseases Status: Acute (10) Acute cholecystitis: Code(s): K81.0 - Acute cholecystitis Status: Acute (11) Hypokalemia: Code(s): E87.6 - Hypokalemia Status: Acute (12) Bacteremia: Code(s): R78.81 - Bacteremia Status: Deleted (13) E coli bacteremia: Code(s): R78.81 - Bacteremia; B96.20 - Unspecified Escherichia coli [E. coli] as the cause of diseases classified elsewhere Status: Acute (14) LISA (acute kidney injury): Code(s): N17.9 - Acute kidney failure, unspecified Status: Acute (15) Pulmonary hypertension: Code(s): I27.20 - Pulmonary hypertension, unspecified Status: Acute (16) History of aortic valve replacement with bioprosthetic valve: Code(s): Z95.3 - Presence of xenogenic heart valve Status: Acute (17) Hypertension: Code(s): I10 - Essential (primary) hypertension Status: Acute (18) Candidal urinary tract infection: Code(s): B37.49 - Other urogenital candidiasis Status: Acute DS: Summary Hospital Course Reason for hospitalization: Chief Complaint: Multiple complaints Narrative: 86-year-old male with past medical history of hypertension, hyperlipidemia and insomnia who presented to the ER with fever, cough and weakness. The majority of the patient's history was obtained from ER records as at the time of my evaluation the patient was confused, rambling and giving variable responses. The patient started feeling ill on Tuesday. He reported right upper quadrant abdominal pain after eating a large solid with a large amount of a thallium dressing and a bowl of pasta with white sauce. His abdominal pain lasted for couple days and resolved. He told me at the time of my evaluation that he has been having a cough since he received his Moderna booster approximately 2 weeks ago. He told the ER doctor that he has started having a cough a few days after started having abdominal pain. He told me that his abdominal pain was associated with stretching was muscles from coughing. He has chronic nasal congestion. He denies any postnasal drip or sore throat. He denies any recent ill contacts. He has had a decreased appetite and states food does not taste good. He has been having some nausea but no vomiting. He denies any changes in his bowel habits. 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 He reports being relatively healthy and active. He has noticed increased wheezing it is unclear how long he has been having wheezing. Hospital Course: Patient has sepsis given his respiratory symptoms is most likely due to pneumonia. Patient was started on Zosyn initially from the ER due to CT findings concerning for acute cholecystitis. However, patient developed acute hypoxic resp
[2021-11-12 11:30] LABS: EDCOVIDSCREEN Negative (Negative)
--- NOTE | 2021-11-12 13:17 | PM.PNGS ---
Progress Note: A&P Assessment and Plan (1) Acute cholecystitis: Code(s): K81.0 - Acute cholecystitis Status: Acute Assessment and Plan: S/p cholecystostomy tube placement 11/06, plan for patient to discharge with this in place. Bile cultures now showing growth of E.Coli - appears to be the source of his bacteremia. Continue regular diet, supplements added. Continue antibiotics, okay to switch to oral antibiotics and discharge to SNF from our standpoint when okay with other services. We have scheduled the patient for a cholangiogram through the cholecystostomy tube 4 weeks after placement and a follow-up with Dr. Espinal the week after. Per CC he is approved to go to [facility] on discharge. (2) Atrial fibrillation with RVR: Code(s): I48.91 - Unspecified atrial fibrillation Status: Acute Assessment and Plan: Currently on Eliquis for anticoagulation. (3) Candidal urinary tract infection: Code(s): B37.49 - Other urogenital candidiasis Status: Acute Assessment and Plan: Diflucan stopped. Budding yeast grown on UA. (4) E coli bacteremia: Code(s): R78.81 - Bacteremia; B96.20 - Unspecified Escherichia coli [E. coli] as the cause of diseases classified elsewhere Status: Acute Assessment and Plan: E coli positive blood cx /2 with sensitivities noted. Bile cx growing E.Coli - source of bacteremia. Okay to switch to oral antibiotics from our standpoint for discharge. Additional Plan I have discussed the plan of care with Dr. Espinal. Subjective Subjective Date/Time Seen: 11/12/21 09:17 Patient reports: no new complaints, tolerating a regular diet and afebrile Interval history: Patient seen and examined today. He reports feeling well without any specific complaints at this time. He did have his klein catheter removed and continued to have issues with retention. He reports that he was unable to void and they had to reinsert an indwelling klein catheter. He is working with PT/OT and doing well. He is tolerating his diet. Still has the same cough that he presented with and has had over the past few months, he reports this is unchanged. Review of Systems Review of Systems: All systems reviewed & are unremarkable except as noted in HPI and below Exam Const: General: comfortable, no acute distress and awake Orientation/consciousness: patient oriented x3 GI: Inspection: non-distended GI Palp: Yes Soft to palpation, No Tenderness to palpation present (GI) and No Guarding due to palpation present (GI) Auscultation: normal bowel sounds Other: Cholecystostomy drain with bilious drainage in bag. Dressing dry and intact. Neuro: General: moves all extremities and no focal motor deficits Extrem: General: no calf tenderness and no edema Psych: Insight: Fair insight present (Psych) Judgement: Fair judgement present (Psych) Objective Data Vital Signs Vital Signs: Vital Signs - 24 hr 11/11/21 13:19 11/11/21 13:28 11/11/21 14:00 Temperature 98.3 F Pulse Rate 77 79 74 Respiratory Rate 18 18 18 Blood Pressure 128/68 Pulse Oximetry 96 11/11/21 16:00 11/11/21 18:00 11/11/21 20:00 Temperature 99.0 F Pulse Rate 89 74 66 Respiratory Rate 18 Blood Pressure 132/61 Pulse Oximetry 95 11/11/21 20:22 11/11/21 20:23 11/11/21 20:31 Temperature Pulse Rate 74 74 76 Respiratory Rate Blood Pressure Pulse Oximetry 94 11/11/21 20:47 11/11/21 21:18 11/11/21 21:42 Temperature 97.7 F 97.7 F Pulse Rate 80 84 84 Respiratory Rate 18 18 Blood Pressure 136/58 L 136/58 L Pulse Oximetry 95 95 11/12/21 00:00 11/12/21 00:17 11/12/21 01:33 Temperature 98.1 F Pulse Rate 82 79 72 Respiratory Rate 17 Blood Pressure 141/61 H Pulse Oximetry 94 11/12/21 01:39 11/12/21 04:00 11/12/21 04:20 Temperature 97.8 F Pulse Rate 77 79 81 Respiratory Rate 16 Blood Pressure 158/65 H Pulse Oximetry 95 11/12/21 08:00 03
== END 2021-11-12 12:55 | DRG 871 ==
LOC: ANHED 20:23 → ANHIMU 11-04 01:20 → ANH3MED 11-12 10:43 → ANHIMU 11-13 09:15
PROVIDERS: Emergency Medicine; Hospitalist; Internal Medicine Cardiovascular Disease; Nurse Practitioner Family; Physician Assistant; Admitting Provider Internal Medicine; Emergency Provider General Practice; PCP Internal Medicine; Visit Provider Family Medicine
DX: A41.9 Sepsis, unspecified organism (principal); G93.41 Metabolic encephalopathy; J18.9 Pneumonia, unspecified organism; J96.01 Acute respiratory failure with hypoxia; K81.0 Acute cholecystitis; I47.1 Supraventricular tachycardia; N17.9 Acute kidney failure, unspecified; B37.49 Other urogenital candidiasis; Z20.822 Contact with and (suspected) exposure to COVID-19; R77.8 Other specified abnormalities of plasma proteins; Z95.2 Presence of prosthetic heart valve; I48.0 Paroxysmal atrial fibrillation; I10 Essential (primary) hypertension; E78.5 Hyperlipidemia, unspecified; R65.20 Severe sepsis without septic shock; B96.20 Unspecified Escherichia coli [E. coli] as the cause of diseases classified elsewhere; E87.6 Hypokalemia; I27.20 Pulmonary hypertension, unspecified; Z79.899 Other long term (current) drug therapy
CPT/HCPCS: 36415; 36600; 47490; 71045; 71046; 71275; 74177; 76705; 78227; 80048; 80053; 81001; 82375; 82805; 82948; 83050; 83605; 83690; 83735; 83880; 84484; 85025; 85027; 85380; 85610; 85730; 86140; 87040; 87070; 87075; 87077; 87102; 87186; 87205; 87206; 87426; 87449; 87804; 87899; 93005; 93306; 94640; 96361; 96365; 96366; 96368; 97110; 97116; 97162; 97166; 97530; 97535; 99285; A9270; A9537; C1729; C9803; J0131; J1644; J1650; J2060; J2270; J2405; J2543; J2805; J3480; J7030; J7040; Q9967; U0003; U0005

== ENCOUNTER 2021-12-04 08:53 | Outpatient (CLI) | payer MEDICARE, SELFPAY ==
--- NOTE | ~2021-12-04 | XR_ITS ---
EXAMINATION: XR catheter cholangiogram DATE: 12/04/2021 09:39 INDICATION: Acute cholecystitis. TECHNIQUE: I injected contrast through the percutaneous cholecystostomy tube under fluoroscopy. 6 sanam ges were obtained. Fluoroscopy exposure time was 0.3 minutes. COMPARISON: CT abdomen and pelvis 11/03/2021 FINDINGS: The pigtail drain is in expected position in the gallbladder. There is contrast opacificati on of the cystic duct and common duct. No choledocholithiasis. Contrast passes to the duodenum. IMPRESSION: 1. Patent cystic duct and common duct. Reviewed, dictated and finalized at location A.
== END 2021-12-04 08:54 | disposition home or self-care (01) ==
PROVIDERS: PCP Internal Medicine; Visit Provider Nurse Practitioner Family
DX: K81.0 Acute cholecystitis (principal)
CPT/HCPCS: 47531; Q9966

== ENCOUNTER 2021-12-23 12:08 | Outpatient (CLI) | payer MEDICARE, SELFPAY ==
[2021-12-23 12:38] LABS: Basophils Absolute Auto 0.1 K/mm3 (0.0-0.1); Basophils Percent Auto 0.8 % (0.2-1.2); Eosinophils Absolute Auto 0.3 K/mm3 (0-0.3); Eosinophils Percent Auto 3.1 % (0-4.4); Hematocrit 39.8 % (42.0-52.0); Hemoglobin 12.5 g/dL (14.0-18.0); Immature Granulocyte Absolute 0.04 K/mm3 (0.00-0.031); Immature Granulocyte Percent A 0.4 % (0-0.5); Lymphocytes Absolute Auto 3.19 K/mm3 (0.9-3.2); Lymphocytes Percent Auto 35.2 % (18.3-44.2); Mean Corpuscular HGB Conc 31.4 g/dl (32-36); Mean Corpuscular Hemoglobin 29.8 pg (26-34); Mean Platelet Volume 10.9 fl (7.4-10.4); Monocytes Absolute Auto 0.7 K/mm3 (0.1-0.6); Monocytes Percent Auto 7.7 % (2.6-8.5); Neutrophils Absolute Auto 4.8 K/mm3 (1.3-6.7); Neutrophils Percent Auto 52.8 % (45.5-73.1); Platelet Count Result 227 k/mm3 (150-375); Red Blood Count 4.19 M/mm3 (4.6-6.20); Red Cell Distribution Width 14.1 % (11.5-14.5); White Blood Count 9.1 K/mm3 (4.5-10.0)
[2021-12-23 12:50] LABS: Alanine Aminotransferase 20 U/L (4-50); Albumin Level 4.2 g/dL (3.5-5.1); Alkaline Phosphatase 71 U/L (38-126); Amylase 71 U/L (30-110); Aspartate Amino Transferase 29 U/L (17-59); Bilirubin,Total 0.7 mg/dL (0.2-1.3); Lipase 76 U/L (23-300)
== END 2021-12-23 12:09 | disposition home or self-care (01) ==
LOC: ANHSURGERY 12:12
PROVIDERS: PCP Internal Medicine; Visit Provider Surgery
DX: Z01.818 Encounter for other preprocedural examination (principal); K81.1 Chronic cholecystitis
CPT/HCPCS: 36415; 80076; 82150; 83690; 85025

== ENCOUNTER 2021-12-28 02:08 | Day surgery (SDC) | payer MEDICARE, SELFPAY ==
--- NOTE | 2021-12-18 10:32 | PC.NURSE ---
Report to the Outpatient Waiting Room, entrance under the green pavilion located off [facility], at [id number] AM on date __12/28/21 . OR Time: _1200 . - You and your visitor will be asked a series of questions to screen for COVID 19 for your protection. - A mask is required within the hospital. Preoperative COVID Testing Requirements: No COVID Test needed if: (proof is required; if not received patient will have Rapid Test prior to entry) - Patient has received COVID Vaccine at least 14 days prior to procedure date or - Patient has positive COVID test result within last 90 days of surgery date. COVID Test needed if above criteria is not met If not COVID vaccinated a COVID test must be conducted within 72 hours of surgery and patient is asked to isolate self from time of testing until procedure. You will go to the [facility] for your COVID testing. The [facility] is located at the corner of [address] from [facility]. You will only be called if COVID results are positive and your surgeon may reschedule your elective surgery date. Patients may have clear liquids (water, carbonated beverages, clear teas, apple juice) until 3 hours prior to surgery with a maximum of 20 ounces. - No food from midnight until time of surgery - Infants may have breast milk until 4 hours before surgery, infant formula 6 hours prior to surgery. - Children will be allowed to drink immediately following surgery. If applicable, please bring a bottle or sippy cup to assist with drinking. Juice, water, soda, and popsicles are readily available. For infants on formula, please bring formula the day of surgery. Pacifiers are allowed. Take the following medications with a SIP of water the morning of surgery: __AMLODIPINE,METOPROLOL,HYDRALAZINE IF NEEDED Medications to discontinue per physician ____ELIQUIS 3 DAYS PRE OP PER DR DYER Date to take last dose__12/24/21 Please no make-up, nail kiswahili, hairspray, perfume, deodorant, or body powder the day of surgery. No jewelry (including any body piercings) or valuables the day of surgery, leave them at home. Please take a shower or bath the night before, or the morning of, surgery with an antibacterial soap. Wear comfortable, loose fitting clothing. Children are encouraged to wear pajamas. - Jewelry must be removed prior to entering the operating room. Rings and piercings that are not removed may be cut off. - The hospital will not accept responsibility for valuables. - Please leave all valuables, including medications, at home the day of surgery. HIBICLENS SHOWER MORNING OF SURGERY If you are going home after surgery, a licensed laundry route driver must drive you home. - NO public transportation without another adult. - We recommend that an adult stay with you for 24 hours following discharge. - We also recommend that you do not drive, make important decision, drink alcoholic beverages, or take any drugs that were not prescribed by your health care provider for at least 24 hours after your discharge time. For Pediatric surgeries, we recommend two adults accompany the child home (only one inside the building at this time). One visitor will be allowed to accompany the patient into the hospital. Patients visitor will be instructed to remain with patient at all times or leave the building. We will allow the visitor to come back to the postoperative area when patient is ready. Follow any additional instructions given to you from your surgeon. Telephone instructions given to _PT AND LESLI and asked if any additional questions and then verbalized understanding. Patient advised to call surgeon office or pre surgery nurse liaison [phone] if any additional questions.
[2021-12-18 10:44] VITALS: BMI 29.2
[2021-12-28] VITALS (8 sets, daily range): BP systolic 100–139; BP diastolic 40–71; PULSE 65–81; RESP 14–20; TEMP 36.3–36.5; O2SAT 94–100
--- NOTE | ~2021-12-28 | XR_ITS ---
EXAMINATION: XR cholangiogram surg 1st inj DATE: 12/28/2021 14:03 INDICATION: Acute cholecystitis. TECHNIQUE: 140 intraoperative fluoroscopic images of the abdomen were obtained. I was not present. Fl uoroscopy exposure time was 22 seconds. COMPARISON: None. FINDINGS: There is a cholecystostomy tube in the gallbladder. There is contrast opacification of the gallbladder, cystic duct, and common duct. Contrast is not seen to pass to the duodenum. No visible c holedocholithiasis. IMPRESSION: 1. Patent cystic duct. 2. Contrast is not seen to pass from the common duct to the duodenum. Reviewed, dictated and finalized at location B.
[2021-12-28] MEDS: ACETAMINOPHEN 500 MG TABLET 1000 MG PO (10:23)
--- NOTE | 2021-12-28 10:46 | WPDANESEPPF ---
Anes - Initial Pre Proc Eval Procedure: Operation Date: 12/28/21 12:00 Proposed Procedures p Laparoscopic Cholecystectomy with Possible Intraoperative Cholangiogram, Possible Open - Kenny Espinal MD Date/Time: 12/28/21 10:46 Surgeon: Kenny Espinal MD Pre Op Diagnosis: Chronic Cholecystitis Patient Data Age: 86 Gender: M Height: 1.63 m Weight: 77 kg Last Vital Signs Temp 36.3 C L 12/28/21 10:28 Pulse 76 12/28/21 10:28 Resp 16 12/28/21 10:28 BP 139/53 L 12/28/21 10:28 Pulse Ox 97 12/28/21 10:28 Allergies Allergy/AdvReac Type Severity Reaction Status Date / Time oxycodone [From Percocet] AdvReac Mild BAD DREAMS Verified 12/28/21 10:12 Home Medications Medication Instructions Recorded Confirmed Type atorvastatin 20 mg PO DAILY 11/03/21 12/18/21 History trazodone 200 mg PO HS 11/03/21 12/18/21 History alprazolam 0.5 mg PO HS #12 tablet 11/12/21 12/18/21 Rx amlodipine [Norvasc] 5 mg PO QAM #30 tablet 11/12/21 12/18/21 Rx apixaban [Eliquis] 5 mg PO Q12HR #60 tablet 11/12/21 12/18/21 Rx metoprolol tartrate 50 mg PO Q12HR #30 tablet 11/12/21 12/18/21 Rx benzonatate 200 mg PO PRN PRN 12/18/21 12/18/21 History hydralazine 25 mg PO TID PRN 12/18/21 12/18/21 History Patient hx anesthesia problems: none Family hx anesthesia problems: none Results Review: All pre-operative results and documents have been reviewed as part of the pre-operative evaluation. [facility] Past Medical History Medical History Essential hypertension Hyperlipidemia Hypertension Insomnia Pulmonary hypertension Surgical History Surgical History H/O aortic valve replacement History of aortic valve replacement with bioprosthetic valve Family History Family History Other Unknown family medical history Social History Social History Social History: Reason lives at home with his of 63 years. He is a lifelong nonsmoker and does not drink alcohol or use illicit substances. 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 Code status: The patient is unsure if he would want cardiopulmonary resuscitation. He is not discuss this with his is he does not think it will ever happened to him. Smoking status: Never smoker Second hand tobacco smoke exposure: No Alcohol intake: never Substance use: never Substance use type: does not use Living arrangements: with family Spiritual care concerns: No Anes - Eval Final PreProcedure Day of Procedure 12/28/21 10:46 Patient weight: overweight Heart: regular rate and rhythm Lungs: clear to auscultation Airway: Mallampati scale class II Neurological: other (alert) Last oral intake: >/= 8 hours ASA classification: IV Emergent: no Anesthetic plan: proceed Anesthesia type and monitoring: general ETT and standard monitoring Results Review: All pre-operative results and documents have been reviewed as part of the pre-operative evaluation. Informed Consent: The patient's anesthetic plan and its attendant risks and benefits were discussed with the patient/family/POA. Questions were solicited and answers provided to the satisfaction of the patient/family/POA.
[2021-12-28] MEDS: KETOROLAC 15 MG/ML VIAL (*BKC) IV PUSH (10:58)
[2021-12-28] MEDS: LACTATED RINGERS 1,000 ML 30 ML IV CONT ×2 (10:58→15:02)
--- NOTE | 2021-12-28 11:53 | WPDHPUPDATE1 ---
History and Physical Update Update Date/Time: 12/28/21 11:53 History and Physical has been reviewed, including an updated exam of the patient. There are NO changes in the patient's condition. Risks, benefits, and alternatives have been discussed and questions answered. Patient agrees to proceed with procedure.
[2021-12-28] MEDS: ceFAZolin 2 GM/D5W 50 ML 2 GM/50 ML BAG IVPB (11:56)
[2021-12-28] MEDS: BACITRACIN OINTMENT 15 GM TUBE 1 APPLIC TOPICAL (12:37)
--- NOTE | 2021-12-28 15:14 | SUR.PHASEI ---
1514-Dr. Espinal at [facility] to speak with pt.
--- NOTE | 2021-12-28 15:27 | W.PM.PROC2 ---
Procedure Note - Detailed Date of Procedure 12/28/21 Pre-op Diagnosis 1. Chronic Cholecystitis with cholelithiasis 2. Status post acute cholecystitis with cholelithiasis and drainage with percutaneous cholecystostomy tube. Post-op Diagnosis Same Procedure Performed Laparoscopic cholecystectomy with intraoperative cholangiogram (via cholecystostomy tube). Surgeon Kenny Espinal MD Regulatory Affairs Spec Elizabeth GOODMAN.OR Outpatient Interviewing Clerk Anesthesia General Indications Patient was originally hospitalized approximately 6-8 weeks ago with acute cholecystitis while on Eliquis and with mild congestive heart failure that was acute with pleural effusions. Therefore, we chose to treat the patient with cholecystostomy tube drainage and antibiotics. He has improved and gotten cardiac clearance through his apparel sales associate to proceed with general anesthesia even though he has had a aortic valve replacement and has some pulmonary hypertension. Because simply removing the tube may lead to repeat episode of cholecystitis it was felt chen to consider going ahead with his laparoscopic cholecystectomy if it was felt a reasonably safe procedure to do. Findings Patient had chronic fairly thick adhesions of the omentum to the entire surface of his gallbladder. Cholangiogram revealed a few line stones in the gallbladder but a patent cystic duct right next to clips that we had placed on the cystic artery and it flowed into a normal-appearing sized common bile duct. Description of Procedure Procedure Details: Patient was seen preoperatively in the holding area and risks, benefits and alternatives confirmed. Patient was taken to the operating room and general anesthesia was induced. A time out was then preformed with the surgery team confirming patient and site of surgery. The abdomen was prepped and draped in the usual sterile fashion. Incision was made just below the umbilicus. Two stay sutures of O- Vicryl were used to elevate the mid-line fascia beneath the umbilicus and a small incision was made under direct vision. The peritoneum was entered. The 12 mm Franz cannula was introduced under direct vision. First under low flow and then under high flow the abdomen was insufflated with carbon dioxide never exceeding a pressure of 14. Three 5 mm trocars were then introduced under direct vision. The following trocars were introduced under direct vision: a 12 mm in the epigastrium and two 5 mm trocars along the right costal margin. There were significant adhesions of the omentum to the underside of the gallbladder and these were taken down with blunt and sharp dissection. Bovie cautery was used for hemostasis. The gall bladder was grasped and the cystic duct and artery were dissected free and I carefully identified a window of safety with only two other structures in the area being the cystic duct and the cystic artery. I then used a 5 mm endo-clip environment friendly landscape designer to place 2 clips on the on the cystic artery. A cholangiogram was then obtained by injecting through the existing cholecystostomy tube. This was done by disconnecting the drainage bag and connecting IV extension tubing up to the end of that drainage catheter. We then flushed with about 3 cc of saline to be sure there was no bubbles and then 18 cc of contrast was injected as we did the C-arm fluoroscopy. This revealed free flow into the gallbladder which filled and then the cystic duct also filled. As the cystic duct filled we could see that was right next to the 2 clips that I had placed on the cystic artery. Common bile duct, common hepatic, right and left hepatic ducts with free flow into these structures with no filling defects in the intra nor extrahepatic biliary tree and no dilation. We did not continue the injection enough to see it flow into the duodenum. But, this had been done 3-4 weeks ago on his outpatient cholecystostomy tube injection and there were no filling defects then nor was there any abnormalities of the distal common bile
== END 2021-12-28 16:43 | disposition home or self-care (01) ==
PROVIDERS: PCP Internal Medicine; Visit Provider Surgery
PROC: 0FT44ZZ Resection of Gallbladder, Percutaneous Endoscopic Approach (ICD-10-PCS; CPT 47562; principal; 2021-12-28 12:00)
DX: K80.10 Calculus of gallbladder with chronic cholecystitis without obstruction (principal); Z79.01 Long term (current) use of anticoagulants; I10 Essential (primary) hypertension; E78.5 Hyperlipidemia, unspecified; G47.00 Insomnia, unspecified; I27.20 Pulmonary hypertension, unspecified; Z95.2 Presence of prosthetic heart valve; I48.91 Unspecified atrial fibrillation
CPT/HCPCS: 47563; 36415; 74300; 80076; 82150; 83690; 85025; 88304; A9270; J0171; J0690; J1100; J1885; J2370; J2405; J2704; J3010; J7030; J7120; Q9966

== ENCOUNTER 2022-02-14 19:40 | Emergency (ER) | payer MEDICARE, SELFPAY ==
[2022-02-14] VITALS (11 sets, daily range): BP systolic 126–164; BP diastolic 57–129; PULSE 73–98; RESP 13–26; TEMP 37.6; O2SAT 95–97
--- NOTE | ~2022-02-14 | XR_ITS ---
EXAMINATION: XR chest 2V Exam Date/Time: 02/14/2022 20:32 CDT HISTORY: fever Comparison: None available. RESULT: Lines, tubes, and devices: Intact sternotomy wires. Cardiac valve replacement. Suture material over the GE junction. Cholecystectomy clips. Lungs and pleura: Low volumes, with senescent change and stable bibasilar scar/atelectasis. Cardiomediastinal silhouette: Stable cardiomediastinal silhouette. Other: No acute osseous or upper abdominal finding. IMPRESSION: No acute cardiopulmonary process detected. Reviewed, dictated and finalized at location K.
[2022-02-14 20:22] LABS: Basophils Percent Auto 0.3 % (0.2-1.2); Eosinophils Absolute Auto 0.1 K/mm3 (0-0.3); Eosinophils Percent Auto 0.9 % (0-4.4); Hematocrit 36.9 % (42.0-52.0); Hemoglobin 11.8 g/dL (14.0-18.0); Immature Granulocyte Absolute 0.06 K/mm3 (0.00-0.031); Immature Granulocyte Percent A 0.5 % (0-0.5); Lymphocytes Absolute Auto 1.43 K/mm3 (0.9-3.2); Lymphocytes Percent Auto 11.5 % (18.3-44.2); Mean Corpuscular Hemoglobin 29.6 pg (26-34); Mean Corpuscular Volume 92.5 fl (80-100); Mean Platelet Volume 10.7 fl (7.4-10.4); Monocytes Absolute Auto 1.3 K/mm3 (0.1-0.6); Monocytes Percent Auto 10.6 % (2.6-8.5); Neutrophils Absolute Auto 9.5 K/mm3 (1.3-6.7); Neutrophils Percent Auto 76.2 % (45.5-73.1); Platelet Count Result 243 k/mm3 (150-375); Red Blood Count 3.99 M/mm3 (4.6-6.20); Red Cell Distribution Width 13.9 % (11.5-14.5); White Blood Count 12.4 K/mm3 (4.5-10.0)
[2022-02-14 20:33] LABS: INR 1.4; Prothrombin Time 16.9 Seconds (11.1-14.7)
[2022-02-14 20:34] LABS: Partial Thromboplastin Time 46.5 SECONDS (22.3-36.8)
[2022-02-14 20:42] LABS: Alanine Aminotransferase 22 U/L (6-50); Albumin Level 4.2 g/dL (3.5-5.1); Alkaline Phosphatase 115 U/L (38-126); Anion Gap 6 mmol/L (8-16); Aspartate Amino Transferase 39 U/L (17-59); Bilirubin,Total 0.9 mg/dL (0.2-1.3); Blood Urea Nitrogen 20 mg/dL (9-20); Calcium 8.8 mg/dL (8.4-10.2); Carbon Dioxide 28 mmol/L (22-30); Chloride 98 mmol/L (98-107); Estimated CRCL calculation 34 ml/min; Estimated Glomerular Filt Rate 52; Glucose 145 mg/dL (65-110); Potassium 5.1 mmol/L (3.4-5.0); Sodium 132 mmol/L (137-145)
[2022-02-14 20:44] LABS: Troponin I 0.013 ng/mL (0.000-0.034)
[2022-02-14 20:57] LABS: Influenza A QL RT-PCR Negative (Negative); Influenza B QL RT-PCR Negative (Negative); SARS-CoV-2 RNA PCR Negative
[2022-02-14 21:00] LABS: CRP 17.5 mg/dL (<1.0)
--- NOTE | 2022-02-14 21:12 | ED.FEVER ---
HPI - Fever General Chief Complaint: Fever Stated Complaint: fever Time Seen by Provider: 02/14/22 19:51 History of Present Illness HPI Narrative: Patient is an 86-year-old male who presents ER with fever over the last 2 days. As high as 102.8 ?F. Reports he has been coughing for 5 days. No runny nose or sore throat. No chest pain or chest pressure. Cough is nonproductive. He does report some pressure in his left ear. He has been applying Debrox to try to soften earwax which she gets that on occasion. Unsure if he has an infection there. Patient denies urinary frequency urgency or dysuria. No abdominal discomfort or diarrhea. No vomiting. Denies any new rashes. Reports he would get a mild headache when he did have a temperature but does not have any at this time. Related Data Home Medications Medication Instructions Recorded Confirmed atorvastatin 20 mg tablet 20 mg PO DAILY 11/03/21 01/13/22 trazodone 100 mg tablet 200 mg PO HS 11/03/21 01/13/22 benzonatate 100 mg capsule 200 mg PO PRN PRN Cough 12/18/21 01/13/22 hydralazine 25 mg tablet 25 mg PO TID PRN Hypertension SBP 12/18/21 01/13/22 >140 Allergies Allergy/AdvReac Type Severity Reaction Status Date / Time oxycodone [From Percocet] AdvReac Mild BAD DREAMS Verified 02/14/22 20:17 Review of Systems Review of Systems: All systems reviewed & are unremarkable except as noted in HPI and below Constitutional: Constitutional: Reports chills and Reports fever(s) ENT: Denies nasal congestion and Denies sore throat Cardiovascular: Cardiovascular: Denies chest pain, Denies rapid heart rate and Denies radiating jaw, neck or arm pain Respiratory: Respiratory: Reports cough and Denies dyspnea Gastrointestinal: Gastrointestinal: Denies abdominal pain, Denies nausea and Denies vomiting Genitourinary: Genitourinary: Denies dysuria and Denies urinary frequency Musculoskeletal: Musculoskeletal: Denies myalgias, Denies arthralgias and Denies joint swelling Integumentary/Breasts: Skin/Breast: Denies erythema and Denies rash Neurologic: Reports headache(s), Denies focal weakness and Denies numbness [facility] Past Medical History Medical History (Updated 02/14/22 @ 21:51 by Blanco Alonso MD) Essential hypertension Hyperlipidemia Hypertension Insomnia Pulmonary hypertension Surgical History Surgical History (Updated 01/13/22 @ 09:29 by Antonella Dillard) H/O aortic valve replacement History of aortic valve replacement with bioprosthetic valve History of laparoscopic cholecystectomy Lap leila with IOC 12/28/21. Family History Family History Other Unknown family medical history Social History Social History Social History: Reason lives at home with his of 63 years. He is a lifelong nonsmoker and does not drink alcohol or use illicit substances. 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 Code status: The patient is unsure if he would want cardiopulmonary resuscitation. He is not discuss this with his is he does not think it will ever happened to him. Smoking status: Never smoker Second hand tobacco smoke exposure: No Alcohol intake: never Substance use: never Substance use type: does not use Spiritual care concerns: No Exam Narrative: GENERAL: Well-appearing, well-nourished, and in no acute distress. HEAD: Normocephalic, atraumatic. EYES: PERRL and EOMI. ENT: Left ear cerumen impaction. Right ear with normal tympanic membrane and ear canal free of cerumen. NECK: Supple. Full range of motion without meningismus. CHEST: Clear to auscultation. No respiratory distress. HEART: Regular rate and rhythm. Normal peripheral pulses. ABDOMEN: Soft, nontender, nondistended. EXTREMITIES: Normal range of motion. No edema. SKIN: Warm, dry, no rash. NEURO: Alert and oriented x3. PSYCH: Normal mood an
[2022-02-14 21:19] LABS: Appearance Urine Clear (Clear); Bilirubin Urine Negative (Negative); Blood Urine 2+ (Negative); Color Urine Yellow (Yellow); Glucose Urine UA Negative (Negative); Ketones Urine Negative (Negative); Leukocyte Esterase Ur 1+ LEU/UL (Negative); Nitrate Urine Negative (Negative); Protein Urine Negative (Negative); Urobilinogen Urine 0.2 mg/dL (<2.0)
[2022-02-14 21:29] LABS: Add Urine Microscopic? YES; Bacteria Urine Trace /hpf; RBC Urine 0-2 /hpf (0-2); WBC Urine 0-3 /hpf
== END 2022-02-14 22:24 | disposition home or self-care (01) ==
PROVIDERS: Emergency Provider Emergency Medicine; PCP Internal Medicine
DX: B34.9 Viral infection, unspecified (principal); H61.22 Impacted cerumen, left ear; Z20.822 Contact with and (suspected) exposure to COVID-19; I10 Essential (primary) hypertension; E78.5 Hyperlipidemia, unspecified; I27.20 Pulmonary hypertension, unspecified; Z95.2 Presence of prosthetic heart valve; Z79.01 Long term (current) use of anticoagulants
CPT/HCPCS: 36415; 69210; 71046; 80053; 81001; 83605; 84484; 85025; 85610; 85730; 86140; 87040; 87502; 99284; A9270; C9803; U0003; U0005

== ENCOUNTER 2023-11-08 19:01 | Inpatient (IN) | payer MEDICARE, SELFPAY ==
--- NOTE | ~2023-11-08 | XR_ITS ---
Clinical Indication: Pneumonia AP and lateral views of the chest: Comparison: 11/15/2023 Findings: Extensive bilateral pulmonary airspace disease is similar to prior exam.. Cardiomediastina l silhouette is stable, status post aortic valve replacement. Bones and soft tissues are unremarkable . Impression: Extensive bilateral pulmonary consolidation is similar to prior exam. Reviewed, dictated and finalized at [facility]. Impression: Extensive bilateral pulmonary consolidation is similar to prior exam.
--- NOTE | ~2023-11-08 | XR_ITS ---
EXAMINATION: XR chest 1V portable DATE: 11/13/2023 09:52 INDICATION: Pneumonia. Interstitial lung disease. TECHNIQUE: frontal view of the chest was obtained. COMPARISON: Chest radiograph dated 11/12/[address] dated 11/11/2023 FINDINGS: Small lung volumes particularly on the right but there is also relative elevation of the right hemidi aphragm. No significant change in diffuse airspace opacities throughout both lungs relatively sparing the left apex. No pleural effusion or pneumothorax. Cardiomegaly. Median sternotomy wires and medias tinal surgical clips are seen, likely from prior coronary artery bypass grafting. Aortic valve repair . Cholecystectomy clips in right upper quadrant. IMPRESSION: 1. No interval change in small lung volumes with diffuse bilateral lung disease likely related to non specific interstitial pneumonia (NSIP) pattern chronic interstitial lung disease and could not exclud e superimposed pneumonia or pulmonary edema. Reviewed, dictated and finalized at location A. IMPRESSION: 1. No interval change in small lung volumes with diffuse bilateral lung disease likely related to nonspecific interstitial pneumonia (NSIP) pattern chronic in terstitial lung disease and could not exclude superimposed pneumonia or pulmona ry edema.
--- NOTE | ~2023-11-08 | XR_ITS ---
Portable chest x-ray Comparison: 11/13/2023 Clinical History: Pneumonia, interstitial lung disease Findings: There is extensive consolidation of the left lung base, more patchy haziness the right georgi g. There is underlying probable diffuse interstitial prominence. Cardiomediastinal silhouette is sta ble. Bones and soft tissues are unremarkable. Impression: Extensive pulmonary disease, as above, with most confluent consolidation left lung base. Correlate fo r pneumonia and/or chronic interstitial disease. Reviewed, dictated and finalized at location M. Impression: Extensive pulmonary disease, as above, with most confluent consolidation left l kit base. Correlate for pneumonia and/or chronic interstitial disease.
--- NOTE | ~2023-11-08 | XR_ITS ---
EXAMINATION: XR chest 1V portable DATE: 11/12/2023 09:04 INDICATION: Interstitial lung disease. Hypoxia. TECHNIQUE: frontal view of the chest was obtained. COMPARISON: Chest radiograph dated 11/08/[address] dated 11/11/2023 FINDINGS: Again seen are small lung volumes with airspace opacities both lungs. Demonstrating the diffuse airs pace opacities delineate air bronchograms with diffuse mild bronchiectasis. No pneumothorax or defini tive pleural effusion. Calcified mediastinal lymph nodes consistent with old granulomatous disease. C ardiomegaly. Median sternotomy wires and mediastinal surgical clips are seen, likely from prior coron nicola artery bypass grafting. Aortic valve repair. Retained epicardial pacemaker leads. Cholecystectomy clips in right upper quadrant. IMPRESSION: 1. Small lung volumes with diffuse bilateral lung disease with appearance on prior CT most consistent with nonspecific interstitial pneumonia administration (NSIP) pattern chronic interstitial lung dise ase. Difficult to exclude superimposed pulmonary edema or pneumonia. Reviewed, dictated and finalized at location A. IMPRESSION: 1. Small lung volumes with diffuse bilateral lung disease with appearance on pr ior CT most consistent with nonspecific interstitial pneumonia administration ( NSIP) pattern chronic interstitial lung disease. Difficult to exclude superimpo sed pulmonary edema or pneumonia.
--- NOTE | ~2023-11-08 | XR_ITS ---
EXAMINATION: XR chest 1V portable Exam Date/Time: 11/08/2023 20:20 CDT HISTORY: cough Comparison: 02/14/2022. RESULT: Lines, tubes, and devices: Intact sternotomy wires. Cardiac valve replacement. Lungs and pleura: Increasing, moderate diffuse reticular opacities with patchy groundglass opacities . Segmental left mid and lower lung airspace disease. Minimal bilateral costophrenic angle blunting. Cardiomediastinal silhouette: Stable. Other: No acute osseous or upper abdominal finding. IMPRESSION: Moderate pulmonary edema, with possible small bilateral effusions. Left basilar airspace disease may represent atelectasis or pneumonia. Reviewed, dictated and finalized at location K.
--- NOTE | ~2023-11-08 | XR_ITS ---
Portable chest x-ray Comparison: 11/14/2023 Clinical History: Pneumonia Findings: Diffuse bilateral pulmonary disease present, with probable alveolar and interstitial disea se. No definite pleural effusion or pneumothorax. Cardiomediastinal silhouette is stable, with aorti c valve placement. Bones and soft tissues are unremarkable. Impression: Diffuse pulmonary disease, as above. Correlate for pneumonia, pulmonary edema, ARDS, and/or chronic i nterstitial disease. Reviewed, dictated and finalized at location . Impression: Diffuse pulmonary disease, as above. Correlate for pneumonia, pulmonary edema, ARDS, and/or chronic interstitial disease.
--- NOTE | ~2023-11-08 | CT_ITS ---
EXAMINATION:CT chest high resolution wo co DATE: 11/11/2023 15:03 INDICATION: Hypoxemia. Interstitial lung disease. TECHNIQUE: Computed tomography (CT) of the chest was performed without intravenous contrast. Automate d exposure control and iterative reconstruction technique were employed. The dose-length product (DLP ) was 477.32 mGy-cm. COMPARISON: Chest CT 11/03/2021 FINDINGS: The lung volumes are small. There are widespread groundglass opacities and septal thickenin g and crazy paving. Right middle lobe is less affected than the other lobes. There is bronchiectasis in the lungs with an inferior predominance. No definite honeycombing. A calcified right lung nodule a nd calcified right hilar and mediastinal lymph nodes are consistent with old granulomatous disease. N o pleural effusion. There is left atrial enlargement of the heart. There are coronary artery calcific ations. There are changes of aortic valve replacement. There are changes of cholecystectomy. Aortic a therosclerosis is noted. There is bilateral gynecomastia. There is severe cervical spondylosis and mo derate thoracic spondylosis. IMPRESSION: 1. Worsened chronic interstitial lung disease in a pattern of nonspecific interstitial pneumonia (NSI P) versus usual interstitial pneumonia (UIP). Reviewed, dictated and finalized at location A. IMPRESSION: 1. Worsened chronic interstitial lung disease in a pattern of nonspecific inter stitial pneumonia (NSIP) versus usual interstitial pneumonia (UIP).
[2023-11-08 19:08] VITALS: BP 97/55; PULSE 82; RESP 18; TEMP 37.3; O2SAT 94
--- NOTE | 2023-11-08 20:11 | ECG_ITS ---
Measurements Intervals Tavares Rate: 77 P: 41 ID: [id number] QRS: 4 QRSD: 93 T: 51 QT: 373 QTc: 424 Interpretive Statements SINUS RHYTHM WITH SINUS ARRHYTHMIA DELAYED PRECORDIAL R/S TRANSITION CONSIDER INFERIOR INFARCT, AGE INDETERMINATE NONSPECIFIC T-WAVE ABNORMALITY- HIGH LATERAL LEADS BASELINE ARTIFACT- I, III ABNORMAL ECG COMPARED TO ECG 11/04/2021 13:32:55 SINUS RHYTHM NOW PRESENT SINUS ARRHYTHMIA NOW PRESENT Electronically Signed On 11-08-2023 20:33:51 CDT by Ryan Ramos D.O.
[2023-11-08] MEDS: SODIUM CHLORIDE 0.9% IV 1,000 ML 999 ML IV CONT (20:24)
[2023-11-08 20:41] LABS: Basophils Absolute Auto 0.1 K/mm3 (0.0-0.1); Basophils Percent Auto 0.5 % (0.2-1.2); Eosinophils Absolute Auto 0.1 K/mm3 (0-0.3); Eosinophils Percent Auto 1.5 % (0-4.4); Hematocrit 39.2 % (42.0-52.0); Hemoglobin 12.9 g/dL (14.0-18.0); Immature Granulocyte Absolute 0.04 K/mm3 (0.00-0.031); Immature Granulocyte Percent A 0.4 % (0-0.5); Lymphocytes Absolute Auto 1.32 K/mm3 (0.9-3.2); Lymphocytes Percent Auto 13.9 % (18.3-44.2); Mean Corpuscular HGB Conc 32.9 g/dl (32-36); Mean Corpuscular Hemoglobin 30.2 pg (26-34); Mean Corpuscular Volume 91.8 fl (80-100); Mean Platelet Volume 10.7 fl (7.4-10.4); Monocytes Absolute Auto 0.9 K/mm3 (0.1-0.6); Monocytes Percent Auto 9.4 % (2.6-8.5); Neutrophils Percent Auto 74.3 % (45.5-73.1); Platelet Count Result 203 k/mm3 (150-375); Red Blood Count 4.27 M/mm3 (4.6-6.20); Red Cell Distribution Width 13.6 % (11.5-14.5); White Blood Count 9.5 K/mm3 (4.5-10.0)
[2023-11-08 20:54] VITALS: BP 109/47; PULSE 70; RESP 19; O2SAT 93
[2023-11-08 20:54] LABS: Alanine Aminotransferase 19 U/L (6-50); Albumin Level 3.6 g/dL (3.5-5.1); Alkaline Phosphatase 85 U/L (38-126); Anion Gap 4 mmol/L (8-16); Aspartate Amino Transferase 35 U/L (17-59); Bilirubin,Total 1.1 mg/dL (0.2-1.3); Blood Urea Nitrogen 14 mg/dL (9-20); Calcium 8.6 mg/dL (8.4-10.2); Carbon Dioxide 27 mmol/L (22-30); Chloride 97 mmol/L (98-107); Estimated CRCL calculation 39 ml/min; Estimated Glomerular Filt Rate > 60; Glucose 118 mg/dL (65-110); Lactic Acid Reflex 0.9 mmol/L (0.7-2.0); Lipase 56 U/L (23-300); Potassium 4.7 mmol/L (3.4-5.0); Sodium 128 mmol/L (137-145)
[2023-11-08 20:55] LABS: INR 1.3; Prothrombin Time 17.3 Seconds (11.1-14.7)
[2023-11-08 20:56] LABS: Partial Thromboplastin Time 35.5 Seconds (22.3-36.8)
[2023-11-08 21:09] LABS: NT Pro B Type Natriuretic Pept 2090 pg/mL (19.9-100); Troponin I 0.042 ng/mL (0.000-0.034)
--- NOTE | 2023-11-08 21:16 | ED.GENADULT ---
HPI - General Adult General Chief complaint: Upper Respiratory Infection Stated complaint: cough/ fever/ dyspnea Time Seen by Provider: 11/08/23 19:36 History of Present Illness HPI narrative: Patient is a 88-year-old gentleman who presents emergency department with chief complaint of shortness of breath. Patient reports he has been feeling weaker than normal lately and reports that he has been having some shortness of breath and has had a dry cough. The patient reports that he has had a fever up to 102 patient reports that he has no prior history of cardiac disease but does have hypertension and reports that he has had an episode of sepsis before in the past Related Data Home Medications Medication Instructions Recorded Confirmed atorvastatin 20 mg tablet 20 mg PO DAILY 11/03/21 01/13/22 trazodone 100 mg tablet 200 mg PO HS 11/03/21 01/13/22 benzonatate 100 mg capsule 200 mg PO PRN PRN Cough 12/18/21 01/13/22 hydralazine 25 mg tablet 25 mg PO TID PRN Hypertension SBP 12/18/21 01/13/22 >140 Allergies Allergy/AdvReac Type Severity Reaction Status Date / Time oxycodone [From Percocet] AdvReac Mild BAD DREAMS Verified 02/14/22 20:17 Review of Systems Review of Systems: A 10 system review of systems was completed on the patient and is negative except for what is stated in the HPI. Nursing and ancillary documentation was reviewed. ON LICENSE OF [facility] Past Medical History Medical History Essential hypertension Hyperlipidemia Hypertension Insomnia Pulmonary hypertension Surgical History Surgical History H/O aortic valve replacement History of aortic valve replacement with bioprosthetic valve History of laparoscopic cholecystectomy Lap leila with IOC 12/28/21. Family History Family History Other Unknown family medical history Social History Social History Social History: Reason lives at home with his of 63 years. He is a lifelong nonsmoker and does not drink alcohol or use illicit substances. 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 Code status: The patient is unsure if he would want cardiopulmonary resuscitation. He is not discuss this with his is he does not think it will ever happened to him. Smoking status: Never smoker Second hand tobacco smoke exposure: No Alcohol intake: never Substance use: never Substance use type: does not use Living arrangements: with family Spiritual care concerns: No Exam Narrative: GENERAL: Well-appearing, well-nourished, and in no acute distress. HEAD: Normocephalic, atraumatic. EYES: PERRLA and EOMI. ENT: Nares clear, no rhinorrhea or epistaxis. Mucous membranes moist. NECK: Supple. CHEST: Clear to auscultation. No respiratory distress. HEART: Regular rate and rhythm. No murmur heard. Normal peripheral pulses. ABDOMEN: Soft, nontender, nondistended, normal active bowel sounds. EXTREMITIES: Normal range of motion. No edema. SKIN: Warm, dry, no rash. NEURO: No focal deficits. Alert and oriented x3. PSYCH: Normal mood and affect. Course Vital Signs Vital signs: Vital Signs Temperature 37.3 C 11/08/23 19:08 Pulse Rate 82 11/08/23 19:08 Respiratory Rate 18 11/08/23 19:08 Blood Pressure 97/55 L 11/08/23 19:08 Pulse Oximetry 94 11/08/23 19:08 Oxygen Delivery Nasal Cannula 11/08/23 19:08 Oxygen Flow Rate 2 11/08/23 19:08 Temperature 37.3 C 11/08/23 19:08 Pulse Rate 82 11/08/23 19:08 Respiratory Rate 18 11/08/23 19:08 Blood Pressure 97/55 L 11/08/23 19:08 Pulse Oximetry 94 11/08/23 19:08 Oxygen Delivery Nasal Cannula 11/08/23 19:08 Oxygen Flow Rate 2 11/08/23 19:08 Medical Decision Making MDM Narrative Medical decisi
[2023-11-08 21:17] LABS: Influenza A QL RT-PCR Negative (Negative); Influenza B QL RT-PCR Negative (Negative); RSV RNA, RT-PCR Negative (Negative); SARS-CoV-2 RNA PCR Negative (Negative)
[2023-11-08 21:19] LABS: Appearance Urine Clear (Clear); Bacteria Urine None Seen /hpf; Bilirubin Urine Negative (Negative); Blood Urine Trace (Negative); Color Urine Yellow (Yellow); Glucose Urine UA Negative (Negative); Ketones Urine Negative (Negative); Leukocyte Esterase Ur Negative LEU/UL (Negative); Nitrate Urine Negative (Negative); Non Pathogenic Casts 0-2; Protein Urine Negative (Negative); Specific Grav Ur 1.008 (1.001-1.035); Squamous Epithelial Cell Urine None Seen /hpf (Few); Urobilinogen Urine 0.2 mg/dL (<2.0); WBC Urine 0-5 /hpf (0-3)
[2023-11-08 21:27] LABS: Add Urine Microscopic? YES
[2023-11-08 21:35] LABS: Procalcitonin 0.3 ng/mL
[2023-11-08] MEDS: FUROSEMIDE INJ 40 MG/4 ML VIAL 20 MG IV PUSH (21:47)
[2023-11-08 21:49] VITALS: BP 104/46; PULSE 77; RESP 20; O2SAT 93; O2SAT 94
[2023-11-08] MEDS: ASPIRIN 81 MG CHEWABLE TABLET 324 MG PO (21:49)
--- NOTE | 2023-11-08 21:50 | PC.NURSE ---
Pt resting comfortably in bed, VS stable. Admitting hospitalist at bedside. Pt cultures obtained. Rocephin started at this time and lasix administered. Son at bedside.
--- NOTE | 2023-11-08 21:51 | PM.IMHP ---
H&P: HPI History of Present Illness Date/Time: 11/08/23 21:51 Chief Complaint: Cough fever and shortness of breath. This is an 88-year-old male patient with a past medical history of hyperlipidemia chronic hypertension pulmonary hypertension insomnia who came to the emergency room complaining of shortness of breath. Patient complained that he has been feeling weaker and reports shortness of breath and dry cough. Patient reported that he had a temperature of 102? F at home. Patient is awake alert not in acute distress. Denies any chills no chest pains complains shortness of breath complains of dry cough. Denies any nausea no vomiting no diarrhea no dysuria no was not in place. Vital signs in the emergency room were stable. CBC with meaning range. PT was 17.3. INR was 1.3. APTT was 35.5. CMP showed sodium of 128 potassium 4.7 chloride 97 carbon dioxide 27 BUN 14 creatinine 1.10. Glucose 118. Liver enzymes normal. Troponin was 0.042. ProBNP was 2090. COVID influenza and RSV were negative. Urinalysis shows no bacteriuria no pyuria. Chest x-ray showed moderate pulmonary edema with small bilateral pleural effusion. Left basilar airspace disease may represent atelectasis or pneumonia. EKG showed sinus rhythm with sinus arrhythmia. Patient was given IV Lasix IV ceftriaxone and IV azithromycin in the emergency room. Review of Systems Review of Systems: A 12 point review of system is done and is only positive what is dictated in the history of present illness. [facility] Past Medical History Medical History Essential hypertension Hyperlipidemia Hypertension Insomnia Pulmonary hypertension Surgical History Surgical History H/O aortic valve replacement History of aortic valve replacement with bioprosthetic valve History of laparoscopic cholecystectomy Lap leila with IOC 12/28/21. Family History Family History Other Unknown family medical history Social History Social History Social History: Reason lives at home with his of 63 years. He is a lifelong nonsmoker and does not drink alcohol or use illicit substances. 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 Code status: The patient is unsure if he would want cardiopulmonary resuscitation. He is not discuss this with his is he does not think it will ever happened to him. Smoking status: Never smoker Second hand tobacco smoke exposure: No Alcohol intake: never Substance use: never Substance use type: does not use Living arrangements: with family Spiritual care concerns: No Meds Home Medications and Allergies Home Medications Medication Instructions Recorded Confirmed Type atorvastatin 20 mg tablet 20 mg PO DAILY 11/03/21 01/13/22 History trazodone 100 mg tablet 200 mg PO HS 11/03/21 01/13/22 History alprazolam 0.5 mg tablet 0.5 mg PO HS #12 tabs 11/12/21 01/13/22 Rx amlodipine 5 mg tablet (Norvasc) 5 mg PO QAM #30 tabs 11/12/21 01/13/22 Rx apixaban 5 mg tablet (Eliquis) 5 mg PO Q12HR #60 tabs 11/12/21 01/13/22 Rx metoprolol tartrate 50 mg tablet 50 mg PO Q12HR #30 tabs 11/12/21 01/13/22 Rx benzonatate 100 mg capsule 200 mg PO PRN PRN Cough 12/18/21 01/13/22 History hydralazine 25 mg tablet 25 mg PO TID PRN Hypertension SBP 12/18/21 01/13/22 History >140 Allergies Allergy/AdvReac Type Severity Reaction Status Date / Time oxycodone [From Percocet] AdvReac Mild BAD DREAMS Verified 02/14/22 20:17 Vital Signs Vital Signs - 24 hr 11/08/23 19:08 11/08/23 19:08 11/08/23 21:49 Temperature 99.2 F Pulse Rate 82 77 Respiratory Rate 18 20 Blood Pressure 97/55 L 104/46 L Pulse Oximetry 94 94 93 Oxygen Delivery Nasal Cannula Nasal Cannula Oxygen Flow Rate 2 2
--- NOTE | 2023-11-08 22:06 | PC.NURSE ---
This RN stood pt to use urinal. Pt requested this RN to leave room so he could attempt to go. Pt on monitor standing, call light within reach. Family member outside of pt room door.
[2023-11-08] MEDS: AZITHROMYCIN 500 MG/NS 250 ML 500 MG/250 ML BAG 250 MG IVPB (22:22)
--- NOTE | 2023-11-08 22:29 | PC.NURSE ---
Attempted report at this time. MAXINE Koehler stated nurse taking pt would call this RN back.
--- NOTE | 2023-11-08 22:30 | PC.NURSE ---
Pt able to urinate. This RN put pt back into bed and back onto monitor.
--- NOTE | 2023-11-08 22:35 | PC.NURSE ---
Pt has arrived from the ED. RN at bedside. Admission completed. Pt resting comfortably.
[2023-11-08 22:51] VITALS: BP 101/56; PULSE 71; RESP 22; O2SAT 95
[2023-11-08 23:04] VITALS: BP 112/55; PULSE 72; RESP 20; TEMP 36.1; O2SAT 93
[2023-11-08 23:05] VITALS: BMI 31.4
[2023-11-08 23:28] VITALS: PULSE 97
[2023-11-08 23:39] LABS: Troponin I 0.045 ng/mL (0.000-0.034)
[2023-11-09] VITALS (30 sets, daily range): BP systolic 116–142; BP diastolic 50–68; PULSE 61–112; RESP 18–24; TEMP 36.2–38.1; O2SAT 91–100
[2023-11-09 05:23] LABS: Troponin I 0.036 ng/mL (0.000-0.034)
[2023-11-09] MEDS: LEVOTHYROXINE SODIUM 25 MCG TABLET PO (05:39)
[2023-11-09] MEDS: guaiFENesin/DEXTROMETHORPHAN 10 ML UDC PO ×3 (05:42→21:35)
--- NOTE | 2023-11-09 06:00 | ECHO_ITS ---
Patient Info Name: Reggie Ortiz Age: 88 years : 1935 Gender: Male Ht: 61 in Wt: 166 lbs BSA: 1.83 m2 HR: 62 bpm BP: 116 / 51 mmHg Heart Rhythm: Sinus Rhythm Technical Quality: Fair Exam Date: 11/09/2023 1:12 PM Exam Location: Echo Lab Patient Status: Inpatient Admit Date: 11/08/2023 Staff Ordering Physician: Joaquin Foreman MD Ob Gyn Physician Assistant: Eli Cedillo RDCS Attending Provider: Blake Meade MD Referring Physician: Ahsan FONTANA; Exam Type: CA echo dop color flow w con Study Info Indications - pulmonary edema, elevated bnp Complete two-dimensional, color flow and Doppler transthoracic echocardiogram is performed with contrast to opacify the left ventricle and to improve the deliniation of the left ventricle endocardial borders. Contrast/Agitated Saline Contrast/Ag. Saline: Definity Amount: 2.00 ml Administered By: Eli Cedillo RDCS Existing IV Access: Yes IV Access Condition: patent with no signs of infiltration Summary 1. Left ventricular chamber dimension is normal. 2. Left ventricular systolic function is normal, estimated at 65-70%. 3. There is mildly increased left ventricular wall thickness. 4. The left ventricular diastolic function is grade I diastolic dysfunction. 5. Right ventricular systolic function is normal. 6. Left atrial chamber dimension is moderately enlarged. 7. Right atrial chamber dimension is mildly enlarged. 8. Normal appearing bioprosthetic aortic valve. 9. There is mild mitral valve regurgitation. 10. There is mild to moderate tricuspid valve regurgitation. Left Ventricle Left ventricular chamber dimension is normal. Left ventricular systolic function is normal, estimated at 65-70%. There is mildly increased left ventricular wall thickness. Left ventricular septal wall motion is abnormal with septal motion related to a post-operative state. The left ventricular diastolic function is grade I diastolic dysfunction. Right Ventricle Right ventricular chamber dimension is normal. Right ventricular systolic function is normal. Left Atria Left atrial chamber dimension is moderately enlarged. Right Atria Right atrial chamber dimension is mildly enlarged. Atrial Septum Intact interatrial septum visualized by color flow imaging. Aortic Valve There is no bioprosthetic aortic valve stenosis. No bioprosthetic aortic valve vegetation visualized. Normal appearing bioprosthetic aortic valve. Pulmonic Valve The pulmonic valve is not well visualized. There is trace pulmonic regurgitation. Mitral Valve There is mild mitral valve regurgitation. Tricuspid Valve There is mild to moderate tricuspid valve regurgitation. Pericardium/Pleural There is trivial pericardial effusion. Inferior Vena Cava Inferior vena cava is not well visualized. Aorta The aortic root size at the sinus of Valsalva is normal. Left Ventricular Outflow Tract Name Value Normal LVOT 2D LVOT Diameter 1.97 cm LVOT Doppler LVOT Peak Gradient 4 mmHg LVOT Mean Gradient 2 mmHg LVOT VTI 21.54 cm LVOT VTI/AV VTI Ratio
[2023-11-09] MEDS: IPRATROPIUM 0.5 MG/ALBUTEROL SULFATE 2.5 MG AMPUL.NEB 3 ML INHALATION ×3 (08:34→20:47)
[2023-11-09] MEDS: ATORVASTATIN 20 MG TABLET PO (09:57)
[2023-11-09] MEDS: ASPIRIN 81 MG CHEWABLE TABLET PO (09:57)
[2023-11-09] MEDS: amLODIPine BESYLATE 5 MG TABLET PO (09:57)
[2023-11-09] MEDS: FINASTERIDE 5 MG TABLET PO (09:57)
[2023-11-09] MEDS: METOPROLOL TARTRATE 12.5 MG TABLET PO ×2 (09:57→17:10)
[2023-11-09] MEDS: TAMSULOSIN HCL 0.4 MG CAPSULE PO (09:57)
[2023-11-09] MEDS: APIXABAN 5 MG TABLET PO ×2 (09:57→21:35)
[2023-11-09] MEDS: MONTELUKAST SODIUM 10 MG TABLET PO (09:57)
--- NOTE | 2023-11-09 12:33 | PC.NURSE ---
Entered patients room as patient was returning to bed from the bathroom. Patient was tachypneic and wheezing. Checked patients Sp02 with the vitals machine and it read 76%. Increased patients oxygen from 1L to 5L. Patient took several minutes to bring Sp02 level to 96%. Informed RT and Dr. Meade. Applied continuous pulse ox monitor on patient.
--- NOTE | 2023-11-09 14:30 | PCPTNOTE ---
attempted PT eval 14:28 , currently getting echo in room, will attempt PT eval at a later time
[2023-11-09] MEDS: PERFLUTREN LIPID MICROSPHERES 1.5 ML VIAL DILUTED TO 10 ML TOTAL VOLUME IV PUSH (14:52)
--- NOTE | 2023-11-09 16:27 | IVDEFINITY ---
Prior to administration of IV Definity the patient was educated on the risks and benefits of the imaging enhancing agent including potential adverse side effects. The patient verbalized understanding. Allergies were verified. No exclusion criteria were identified and at least one of the following inclusion criteria were met: 1) physician request, 2) patient technically difficult to image (per the [place] [employer] guidelines of two or more segments not discernable within the apical view), or 3) questionable left ventricular function. ?
--- NOTE | 2023-11-09 18:28 | PM.IMPN ---
Progress Note: A&P Assessment and Plan (1) Pneumonia: Code(s): J18.9 - Pneumonia, unspecified organism Status: Acute (2) Acute hypoxic respiratory failure: Code(s): J96.01 - Acute respiratory failure with hypoxia Status: Acute (3) Hypertension: Code(s): I10 - Essential (primary) hypertension Status: Acute (4) H/O aortic valve replacement: Code(s): Z95.2 - Presence of prosthetic heart valve Status: Acute (5) Elevated troponin: Code(s): R77.8 - Other specified abnormalities of plasma proteins Status: Acute Plan Admit patient to medical unit under full inpatient status Patient has X-ray and clinical findings consistent with bilateral pneumonia Patient started on IV antibiotics in the form of Rocephin and Zithromax which we'll continue on the floor Follow-up on blood and sputum cultures sent from ER Oxygen via nasal cannula to keep O2 sats around 94% Continue with the DuoNeb breathing treatments on the floor as needed Patient has minimal times which are flat and patient does not complain of any chest pain 2D echo with colorflow doppler ordered to evaluate cardiac structure and function Patient likely has minimally elevated cardiac enzymes due to myocardial demand ischemia caused by pneumonia Would consider Cardiology evaluation if echo is abnormal or patient has chest pain PT/OT evaluation ordered DC patient on oral antibiotics when patient is clinically stable and breathing is back to baseline ? Patient seen and examined at bedside during my morning rounds ? Collaborated with patient's nurse at the bedside in detail and addressed all concerns ? Labs, electrolytes, radiology, investigations and test results reviewed ? Consult/Nursing/Ancilliary notes on the chart reviewed and appreciated ? Spoke with patient/family at the bedside and answered all the questions that they had Repeat labs in a.m. Electrolyte replacement as per protocol. Patient will be monitored very closely on the floor. Further recommendations as per the hospital course. Time Spent With Patient Time with patient: 15 - 25 minutes Subjective Date/time seen: 11/09/23 18:28 Interval history: Patient lying in bed during my morning rounds. Feels weak and tired yet improved since ER admission yesterday. Troponins are minimally elevated yet flat. 2D echo ordered Review of Systems Review of Systems: 14 systems were reviewed with pertinent positives and negatives per HPI. Except as documented in the HPI/progress notes, all other systems were reviewed and are negative. All systems reviewed & are unremarkable except as noted in HPI and below Exam Narrative: PHYSICAL EXAMINATION: Vital signs: Please see the chart General physical exam: Obese gentleman, lying in bed, pleasant and cooperative with exam, appears tired and fatigued Head/eyes: Atraumatic, EOMI, PERRLA ENT: Moist mucous membranes, nasal passages clear Neck: Supple, full range of motion, trachea midline CVS: S1 + S2, regular rate and rhythm, no murmurs Respiratory: Bilaterally decreased air entry in both lung wells, mild B/L crackles, symmetric chest expansion, + scattered bilateral rhonchi Abdomen: Soft, non-tender, bowel sounds +ve, no organomegaly Extremities: No clubbing, no cyanosis, no edema, no calf tenderness Musculoskeletal: Moves all, decreased range of motion, no muscle spasms Skin: Warm, dry, no jaundice, no cyanosis Neurological: Awake, alert, oriented x 3, cranial nerves II-XII intact, no focal neurological deficits Psychiatric: Normal mood, non suicidal Objective Data Vital Signs Vital Signs: Vital Signs - 24 hr 11/08/23 19:08 11/08/23 19:08 11/08/23 21:49 Temperature 37.3 C Pulse Rate 82 77 Respiratory Rate 18 20 Blood Pressure 97/55 L 104/46 L Pulse Oximetry 94 94 93 Oxygen Delivery Nasal Cannula Nasal Cannula Oxygen Flow Rate 2 2 11/08/23 21:49 11/08/23 20:54 11/08/23 22:51 Temperature
[2023-11-09] MEDS: traZODone HCL 50 MG TABLET 200 MG PO (21:35)
[2023-11-09] MEDS: AZITHROMYCIN 500 MG/NS 250 ML 500 MG/250 ML BAG 250 MG IVPB (22:09)
[2023-11-10] VITALS (32 sets, daily range): BP systolic 103–142; BP diastolic 47–67; PULSE 78–116; RESP 16–24; TEMP 36.5–37.7; O2SAT 84–98
[2023-11-10] MEDS: IPRATROPIUM 0.5 MG/ALBUTEROL SULFATE 2.5 MG AMPUL.NEB 3 ML INHALATION ×4 (02:48→19:44)
[2023-11-10] MEDS: guaiFENesin/DEXTROMETHORPHAN 10 ML UDC PO ×2 (04:48→20:49)
[2023-11-10 04:50] LABS: Basophils Absolute Auto 0.1 K/mm3 (0.0-0.1); Basophils Percent Auto 0.5 % (0.2-1.2); Eosinophils Absolute Auto 0.1 K/mm3 (0-0.3); Hemoglobin 11.5 g/dL (14.0-18.0); Immature Granulocyte Absolute 0.04 K/mm3 (0.00-0.031); Immature Granulocyte Percent A 0.4 % (0-0.5); Lymphocytes Percent Auto 17.2 % (18.3-44.2); Mean Corpuscular HGB Conc 31.9 g/dl (32-36); Mean Corpuscular Hemoglobin 29.4 pg (26-34); Mean Corpuscular Volume 92.1 fl (80-100); Mean Platelet Volume 10.1 fl (7.4-10.4); Monocytes Absolute Auto 1.2 K/mm3 (0.1-0.6); Monocytes Percent Auto 11.6 % (2.6-8.5); Neutrophils Absolute Auto 6.9 K/mm3 (1.3-6.7); Neutrophils Percent Auto 69.3 % (45.5-73.1); Platelet Count Result 192 k/mm3 (150-375); Red Blood Count 3.91 M/mm3 (4.6-6.20); Red Cell Distribution Width 13.7 % (11.5-14.5); White Blood Count 9.9 K/mm3 (4.5-10.0)
[2023-11-10 05:11] LABS: Anion Gap 4 mmol/L (8-16); Blood Urea Nitrogen 9 mg/dL (9-20); Calcium 8.3 mg/dL (8.4-10.2); Carbon Dioxide 27 mmol/L (22-30); Chloride 100 mmol/L (98-107); Estimated CRCL calculation 44 ml/min; Estimated Glomerular Filt Rate > 60; Glucose 173 mg/dL (65-110); Phosphorus 2.9 mg/dL (2.5-4.5); Sodium 131 mmol/L (137-145)
[2023-11-10 05:22] LABS: Troponin I 0.072 ng/mL (0.000-0.034)
[2023-11-10] MEDS: LEVOTHYROXINE SODIUM 25 MCG TABLET PO (05:48)
--- NOTE | 2023-11-10 09:43 | PM.CNCAR ---
Assessment and Plan Assessment and plan (1) Hypertension: Code(s): I10 - Essential (primary) hypertension Status: Acute Assessment and Plan: BP at goal (2) Elevated troponin: Code(s): R77.8 - Other specified abnormalities of plasma proteins Status: Acute Assessment and Plan: Troponin levels 0.42, 0.45, 0.36, 0.72 - mildly elevated in the setting of hypoxia. He does not have any chest pain. No ischemic changes on EKG. No further cardiac workup recommended. (3) History of aortic valve replacement with bioprosthetic valve: Code(s): Z95.3 - Presence of xenogenic heart valve Status: Acute Assessment and Plan: Normal function on most recent echo. Plan Cardiology will sign off. Call with questions. History of Present Illness History of Present Illness Consult date/time: 11/10/23 09:43 Requesting physician: Blake Meade MD Consult reason: Other (elevated troponin) Reason For Visit: Pneumonia, Elevated troponin, Hypoxic respiratory Narrative: Reggie Ortiz is an 88 year old male with history of severe aortic stenosis post bioprosthetic aortic valve replacement not, history of postoperative atrial fibrillation, pulmonary hypertension hypertension, hyperlipidemia. He is hospitalized with pneumonia. Cardiology is being asked to see him because of elevated troponin levels. He denies any chest pain currently and he also denies a history of chest pain. He is known to not have any coronary artery disease by cardiac cath performed in 2017. Review of Systems Review of Systems: All systems reviewed & are unremarkable except as noted in HPI and below PMFSH Past Medical History Medical History (Updated 11/10/23 @ 12:25 by KELSI Yusuf) Essential hypertension Hyperlipidemia Hypertension Insomnia Pulmonary hypertension Surgical History Surgical History H/O aortic valve replacement History of aortic valve replacement with bioprosthetic valve History of laparoscopic cholecystectomy Lap leila with IOC 12/28/21. Family History Family History Other Unknown family medical history Social History Social History Social History: Reason lives at home with his of 63 years. He is a lifelong nonsmoker and does not drink alcohol or use illicit substances. 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 Code status: The patient is unsure if he would want cardiopulmonary resuscitation. He is not discuss this with his is he does not think it will ever happened to him. Smoking status: Never smoker Second hand tobacco smoke exposure: No Alcohol intake: never Substance use: never Substance use type: does not use Do You Feel Safe in your Home?: Yes Lack of Transportation: No Lack of Food: Never True Current Housing: I Have Housing Concerned About Future Housing: No Difficulty Paying Gas/Electric Bills: No Difficulty Paying for Meds: No Currently Unemployed: No Education: High School Diploma/GED Difficulty w/ Childcare or Family Care: No Living arrangements: with family Spiritual care concerns: No Meds Home Medications and Allergies Home Medications Medication Instructions Recorded Confirmed Type atorvastatin 20 mg tablet 20 mg PO DAILY 11/03/21 11/08/23 History trazodone 100 mg tablet 200 mg PO HS 11/03/21 11/08/23 History amlodipine 5 mg tablet (Norvasc) 5 mg PO QAM #30 tabs 11/12/21 11/08/23 Rx apixaban 5 mg tablet (Eliquis) 5 mg PO Q12HR #60 tabs 11/12/21 11/08/23 Rx benzonatate 100 mg capsule 200 mg PO PRN PRN Cough 12/18/21 11/08/23 History albuterol sulfate 2.5 mg/3 mL 2.5 mg inhalation Q6H PRN 11/08/23 11/08/23 History (0.083 %) solution for nebulization Shortness Of Breath Or Wheezing alprazolam 0.5 mg tablet 0.5 mg PO HS PRN
[2023-11-10] MEDS: ASPIRIN 81 MG CHEWABLE TABLET PO (09:47)
[2023-11-10] MEDS: METOPROLOL TARTRATE 12.5 MG TABLET PO ×2 (09:48→17:37)
[2023-11-10] MEDS: TAMSULOSIN HCL 0.4 MG CAPSULE PO (09:48)
[2023-11-10] MEDS: FINASTERIDE 5 MG TABLET PO (09:48)
[2023-11-10] MEDS: APIXABAN 5 MG TABLET PO ×2 (09:48→20:48)
[2023-11-10] MEDS: MONTELUKAST SODIUM 10 MG TABLET PO (09:49)
[2023-11-10] MEDS: amLODIPine BESYLATE 5 MG TABLET PO (09:49)
[2023-11-10] MEDS: ATORVASTATIN 20 MG TABLET PO (09:49)
--- NOTE | 2023-11-10 16:17 | PC.NURSE ---
This RN to patient's room, Sp02 76%, upon entering the room patient sitting in bed with oxygen on. patient coughing, this RN turned the oxygen up 8L. Patient's Sp02 at 93%.
--- NOTE | 2023-11-10 18:22 | PM.IMPN ---
Progress Note: A&P Assessment and Plan (1) Pneumonia: Code(s): J18.9 - Pneumonia, unspecified organism Status: Acute (2) Acute hypoxic respiratory failure: Code(s): J96.01 - Acute respiratory failure with hypoxia Status: Acute (3) Hypertension: Code(s): I10 - Essential (primary) hypertension Status: Acute (4) H/O aortic valve replacement: Code(s): Z95.2 - Presence of prosthetic heart valve Status: Acute (5) Elevated troponin: Code(s): R77.8 - Other specified abnormalities of plasma proteins Status: Acute Plan Admit patient to medical unit under full inpatient status Patient has X-ray and clinical findings consistent with bilateral pneumonia Patient started on IV antibiotics in the form of Rocephin and Zithromax which we'll continue on the floor Follow-up on blood and sputum cultures sent from ER Oxygen via nasal cannula to keep O2 sats around 94% Continue with the DuoNeb breathing treatments on the floor as needed Patient has minimally elevated cardiac enzymes which are flat and patient does not complain of any chest pain 2D echo with colorflow doppler ordered to evaluate cardiac structure and function which shows preserved left ventricular function with EF 65-70% Patient likely has minimally elevated cardiac enzymes due to myocardial demand ischemia caused by pneumonia He drops his O2 sats to 70s with minimal ambulation Spoke with senior game designer and pulmonary consult given for evaluation and further treatment recommendations PT/OT evaluation ordered DC patient on oral antibiotics when patient is clinically stable and breathing is back to baseline ? Patient seen and examined at bedside during my morning rounds ? Collaborated with patient's nurse at the bedside in detail and addressed all concerns ? Labs, electrolytes, radiology, investigations and test results reviewed ? Consult/Nursing/Ancilliary notes on the chart reviewed and appreciated ? Spoke with patient/family at the bedside and answered all the questions that they had Repeat labs in a.m. Electrolyte replacement as per protocol. Patient will be monitored very closely on the floor. Further recommendations as per the hospital course. Subjective Date/time seen: 11/10/23 18:22 Interval history: Patient feels weak and tired. He drops his O2 sats in 70s with minimal activity outside the bed. Pulmonary consultation ordered. Cardiology evaluated the patient and signed off. Review of Systems Review of Systems: 14 systems were reviewed with pertinent positives and negatives per HPI. Except as documented in the HPI/progress notes, all other systems were reviewed and are negative. All systems reviewed & are unremarkable except as noted in HPI and below Exam Narrative: PHYSICAL EXAMINATION: Vital signs: Please see the chart General physical exam: Obese gentleman, lying in bed, pleasant and cooperative with exam, appears tired and fatigued Head/eyes: Atraumatic, EOMI, PERRLA ENT: Moist mucous membranes, nasal passages clear Neck: Supple, full range of motion, trachea midline CVS: S1 + S2, regular rate and rhythm, no murmurs Respiratory: Bilaterally decreased air entry in both lung wells, mild B/L crackles, symmetric chest expansion, + scattered bilateral rhonchi Abdomen: Soft, non-tender, bowel sounds +ve, no organomegaly Extremities: No clubbing, no cyanosis, no edema, no calf tenderness Musculoskeletal: Moves all, decreased range of motion, no muscle spasms Skin: Warm, dry, no jaundice, no cyanosis Neurological: Awake, alert, oriented x 3, cranial nerves II-XII intact, no focal neurological deficits Psychiatric: Normal mood, non suicidal Objective Data Vital Signs Vital Signs: Vital Signs - 24 hr 11/09/23 20:43 11/09/23 20:48 11/09/23 20:55 Temperature 37.6 C H Pulse Rate 94 98 99 Respiratory Rate 18 18 18 Blood Pressure 142/68 H Pulse Oximetry 100 Oxygen Delivery Oxygen Flow Ra
[2023-11-10] MEDS: traZODone HCL 50 MG TABLET 200 MG PO (20:48)
[2023-11-10] MEDS: ALPRAZolam (*CRX) 0.5 MG TABLET PO (20:49)
--- NOTE | 2023-11-10 21:19 | PM.CNPUL ---
Assessment and Plan Assessment and plan (1) Acute hypoxic respiratory failure: Code(s): J96.01 - Acute respiratory failure with hypoxia Status: Acute Assessment and Plan: He required 1 L on admission; now oxygen requirement rapidly increasing now going on Airvo approximately 10:00 p.m. on November 09 He does not retain CO2 no history of underlying smoking, occupational exposure, no history, no asbestos (2) ILD (interstitial lung disease): Code(s): J84.9 - Interstitial pulmonary disease, unspecified Status: Acute Assessment and Plan: Diagnosed with a form of interstitial lung disease about 2 years ago, has not required treatment yet although he has discussed using a anti fibrotic with Dr. Teri hines, probably Ofev. Patient says that he is hesitant because of his underlying stomach problems. He has not required oxygen at home. He will need to go home on O2. Plan Critically ill today. Goal is to improve oxygenation; trying different O2 delivery systems. AirVo 45 L/min and 60% Start methylprednisolone 125 mg once, 60 mg IV q.6 hours; this is for possible acute exacerbation of ILD We are treating for possible CAP; he had COVID 5 her 6 weeks ago, has not returned to his baseline status. He was treated with Paxlovid. Get records from his director script, MARYAN Ramirez. Pt says he has not been on treatment yet, no O2, discussed Ofev with his doctor hestitant because he already has GI issues, has lost weight. HRCT- he may be having worsening ILD vs post COVID deterioration vs bacterial secondary infection after recent COVID vs cardiac pproblmes; mild increase in BNP, troponins. Echo reviewed. Urine antigens for pneumococcal and Legionella continue IV azithromycin and ceftriaxone Lab studies: CHIKA, rheumatoid factor, these are screening for possible underlying autoimmune conditions that may be associated although Dr. Veliz has likelyperformed this workup. We will follow with you however I will not be with you in person TuesdayNovember 10. Please call me directly if you have questions. History of Present Illness History of Present Illness Consult date: 11/10/23 Requesting physician: Blake Meade MD Chief complaint: Pneumonia, Elevated troponin, Hypoxic respiratory Narrative: Dr Meade asked me to see this patient, November 09 at 21:20 NEW: Reggie Ortiz is an 88 year-old man with hypoxemic respiratory failure on 10 L of oxygen with frequent desaturation into the 70% range. Was admitted through the emergency department November 07 with shortness of breath, dry cough, and a fever up to 102. The patient tells me that he was diagnosed with pulmonary fibrosis by Dr. Webster, director script at [facility]. He has not started any therapy, knows that one of the meds for this causes stomach problems. He has stomach problems now,dose not feel well. He is on higher amounts of O2, now switching to AirVo to try to maintain saturation in normal range because he has dropped into the lower 70s and high 60% range on 15 L/minute. He has not required oxygen at home. He says about 5 - 6 weeks ago he developed COVID, took Paxlovid for 5 days, felt better however has not returned to normal. He still has a dry cough, weight loss 15 lb over several months, now dyspnea at rest. He went to [facility] today, was told he needed to be admitted, left and came here. His significant labs showed negative swabs for influenza A/B, RSV, COVID; BNP is 2090. Troponins mildly elevated, 0.045, 0.036, 0.072 from November 07 to November 09, arterial blood gas on November 07 pH 7.326, pCO2 39.3, PO2 80.6, HC03 20.1 saturation 95.2% on 1 liter/minute. Now he is on 10 liters/minute. wbc 9.9, hemoglobin 11.5, hematocrit 36%, platelets 192 1000. He is on azithromycin and ceftriaxone, this is empiric therapy for
[2023-11-10] MEDS: AZITHROMYCIN 500 MG/NS 250 ML 500 MG/250 ML BAG 250 MG IVPB (21:39)
[2023-11-10] MEDS: methylPREDNISolone SOD SUCC 125 MG VIAL IV PUSH (23:21)
[2023-11-11] VITALS (29 sets, daily range): BP systolic 99–188; BP diastolic 54–81; PULSE 74–106; RESP 18–24; TEMP 36.2–37.1; O2SAT 92–99
[2023-11-11] MEDS: IPRATROPIUM 0.5 MG/ALBUTEROL SULFATE 2.5 MG AMPUL.NEB 3 ML INHALATION ×5 (02:15→21:18)
[2023-11-11 05:39] LABS: Basophils Percent Auto 0.3 % (0.2-1.2); Eosinophils Percent Auto 0.1 % (0-4.4); Hematocrit 36.8 % (42.0-52.0); Hemoglobin 11.9 g/dL (14.0-18.0); Immature Granulocyte Absolute 0.03 K/mm3 (0.00-0.031); Immature Granulocyte Percent A 0.3 % (0-0.5); Lymphocytes Absolute Auto 0.72 K/mm3 (0.9-3.2); Lymphocytes Percent Auto 7.1 % (18.3-44.2); Mean Corpuscular HGB Conc 32.3 g/dl (32-36); Mean Corpuscular Hemoglobin 30.1 pg (26-34); Mean Corpuscular Volume 93.2 fl (80-100); Mean Platelet Volume 10.3 fl (7.4-10.4); Monocytes Absolute Auto 0.1 K/mm3 (0.1-0.6); Monocytes Percent Auto 1.4 % (2.6-8.5); Neutrophils Absolute Auto 9.2 K/mm3 (1.3-6.7); Neutrophils Percent Auto 90.8 % (45.5-73.1); Platelet Count Result 216 k/mm3 (150-375); Red Blood Count 3.95 M/mm3 (4.6-6.20); Red Cell Distribution Width 13.3 % (11.5-14.5); White Blood Count 10.2 K/mm3 (4.5-10.0)
[2023-11-11 05:52] LABS: Anion Gap 5 mmol/L (8-16); Blood Urea Nitrogen 13 mg/dL (9-20); Calcium 8.7 mg/dL (8.4-10.2); Carbon Dioxide 26 mmol/L (22-30); Chloride 97 mmol/L (98-107); Estimated CRCL calculation 44 ml/min; Estimated Glomerular Filt Rate > 60; Glucose 236 mg/dL (65-110); Potassium 4.1 mmol/L (3.4-5.0); Sodium 128 mmol/L (137-145)
[2023-11-11 05:59] LABS: Rheumatoid Factor 18.2 IU/ML (<12)
[2023-11-11] MEDS: methylPREDNISolone SOD SUCC 125 MG VIAL 60 MG IV PUSH ×3 (06:31→18:49)
[2023-11-11] MEDS: LEVOTHYROXINE SODIUM 25 MCG TABLET PO (06:31)
[2023-11-11] MEDS: ASPIRIN 81 MG CHEWABLE TABLET PO (08:36)
[2023-11-11] MEDS: amLODIPine BESYLATE 5 MG TABLET PO (08:36)
[2023-11-11] MEDS: TAMSULOSIN HCL 0.4 MG CAPSULE PO (08:36)
[2023-11-11] MEDS: APIXABAN 5 MG TABLET PO ×2 (08:36→20:10)
[2023-11-11] MEDS: FINASTERIDE 5 MG TABLET PO (08:37)
[2023-11-11] MEDS: MONTELUKAST SODIUM 10 MG TABLET PO (08:37)
[2023-11-11] MEDS: ATORVASTATIN 20 MG TABLET PO (08:37)
[2023-11-11] MEDS: METOPROLOL TARTRATE 12.5 MG TABLET PO ×2 (08:37→18:49)
[2023-11-11] MEDS: FUROSEMIDE INJ 40 MG/4 ML VIAL IV PUSH (14:30)
--- NOTE | 2023-11-11 18:27 | PM.IMPN ---
Progress Note: A&P Assessment and Plan (1) Pneumonia: Code(s): J18.9 - Pneumonia, unspecified organism Status: Acute (2) Acute hypoxic respiratory failure: Code(s): J96.01 - Acute respiratory failure with hypoxia Status: Acute (3) Hypertension: Code(s): I10 - Essential (primary) hypertension Status: Acute (4) H/O aortic valve replacement: Code(s): Z95.2 - Presence of prosthetic heart valve Status: Acute (5) Elevated troponin: Code(s): R77.8 - Other specified abnormalities of plasma proteins Status: Acute Plan Admit patient to medical unit under full inpatient status Patient has X-ray and clinical findings consistent with bilateral pneumonia Patient started on IV antibiotics in the form of Rocephin and Zithromax which we'll continue on the floor Follow-up on blood and sputum cultures sent from ER Patient with a progressively increasing oxygen needs He drops his O2 sats to 70s with minimal ambulation Spoke with therapeutic dietitian and pulmonary consult given for evaluation and further treatment recommendations 11/10/2023 ... 10:00 p.m: Patient started on Airvo by pulmonary Pulmonary consult reviewed and appreciated Follow-up closely with pulmonary management recommendations Continue with the DuoNeb breathing treatments on the floor as needed Patient has minimally elevated cardiac enzymes which are flat and patient does not complain of any chest pain 2D echo with colorflow doppler ordered to evaluate cardiac structure and function which shows preserved left ventricular function with EF 65-70% Patient likely has minimally elevated cardiac enzymes due to myocardial demand ischemia caused by pneumonia Cardiology consult ordered for evaluation who evaluated the patient and do not recommend any cardiac workup PT/OT evaluation ordered Patient likely require oxygen upon DC DC patient on oral antibiotics when patient is clinically stable and breathing has improved ? Patient seen and examined at bedside during my morning rounds ? Collaborated with patient's nurse at the bedside in detail and addressed all concerns ? Labs, electrolytes, radiology, investigations and test results reviewed ? Consult/Nursing/Ancilliary notes on the chart reviewed and appreciated ? Spoke with patient/family at the bedside and answered all the questions that they had Repeat labs in a.m. Electrolyte replacement as per protocol. Patient will be monitored very closely on the floor. Further recommendations as per the hospital course. Time Spent With Patient Time with patient: 15 - 25 minutes Subjective Date/time seen: 11/11/23 18:27 Interval history: Patient has rapidly deteriorating O2 sats with minimal movements. Switched to Airvo since last night. IV Lasix x1 dose given. Review of Systems Review of Systems: 14 systems were reviewed with pertinent positives and negatives per HPI. Except as documented in the HPI/progress notes, all other systems were reviewed and are negative. All systems reviewed & are unremarkable except as noted in HPI and below Exam Narrative: PHYSICAL EXAMINATION: Vital signs: Please see the chart General physical exam: Obese gentleman, lying in bed, pleasant and cooperative with exam, appears tired and fatigued Head/eyes: Atraumatic, EOMI, PERRLA ENT: Moist mucous membranes, nasal passages clear Neck: Supple, full range of motion, trachea midline CVS: S1 + S2, regular rate and rhythm, no murmurs Respiratory: Bilaterally decreased air entry in both lung wells, mild B/L crackles, symmetric chest expansion, + scattered bilateral rhonchi Abdomen: Soft, non-tender, bowel sounds +ve, no organomegaly Extremities: No clubbing, no cyanosis, no edema, no calf tenderness Musculoskeletal: Moves all, decreased range of motion, no muscle spasms Skin: Warm, dry, no jaundice, no cyanosis Neurological: Awake, alert, oriented x 3, cranial nerves II-XII intact, no focal neurological defi
[2023-11-11] MEDS: traZODone HCL 50 MG TABLET 200 MG PO (20:08)
[2023-11-11] MEDS: ALPRAZolam (*CRX) 0.5 MG TABLET PO (20:10)
[2023-11-11] MEDS: AZITHROMYCIN 500 MG/NS 250 ML 500 MG/250 ML BAG 250 MG IVPB (20:36)
[2023-11-12] VITALS (28 sets, daily range): BP systolic 104–128; BP diastolic 51–66; PULSE 72–99; RESP 19–37; TEMP 35.6–36.9; O2SAT 84–98
[2023-11-12] MEDS: methylPREDNISolone SOD SUCC 125 MG VIAL 60 MG IV PUSH ×4 (00:44→17:52)
[2023-11-12] MEDS: IPRATROPIUM 0.5 MG/ALBUTEROL SULFATE 2.5 MG AMPUL.NEB 3 ML INHALATION ×4 (01:52→20:35)
[2023-11-12] MEDS: ALPRAZolam (*CRX) 0.5 MG TABLET PO ×2 (03:58→20:26)
[2023-11-12 05:14] LABS: Basophils Percent Auto 0.1 % (0.2-1.2); Hematocrit 32.9 % (42.0-52.0); Hemoglobin 10.9 g/dL (14.0-18.0); Immature Granulocyte Absolute 0.19 K/mm3 (0.00-0.031); Lymphocytes Absolute Auto 0.83 K/mm3 (0.9-3.2); Lymphocytes Percent Auto 4.2 % (18.3-44.2); Mean Corpuscular HGB Conc 33.1 g/dl (32-36); Mean Corpuscular Volume 90.6 fl (80-100); Mean Platelet Volume 10.8 fl (7.4-10.4); Monocytes Absolute Auto 0.5 K/mm3 (0.1-0.6); Monocytes Percent Auto 2.7 % (2.6-8.5); Neutrophils Absolute Auto 18.3 K/mm3 (1.3-6.7); Platelet Count Result 249 k/mm3 (150-375); Red Blood Count 3.63 M/mm3 (4.6-6.20); Red Cell Distribution Width 12.7 % (11.5-14.5); White Blood Count 19.9 K/mm3 (4.5-10.0)
[2023-11-12 05:22] LABS: Anion Gap 2 mmol/L (8-16); Blood Urea Nitrogen 23 mg/dL (9-20); Calcium 8.6 mg/dL (8.4-10.2); Carbon Dioxide 30 mmol/L (22-30); Chloride 97 mmol/L (98-107); Estimated CRCL calculation 49 ml/min; Estimated Glomerular Filt Rate > 60; Glucose 258 mg/dL (65-110); Potassium 3.3 mmol/L (3.4-5.0); Sodium 129 mmol/L (137-145)
[2023-11-12] MEDS: LEVOTHYROXINE SODIUM 25 MCG TABLET PO (05:47)
[2023-11-12] MEDS: ASPIRIN 81 MG CHEWABLE TABLET PO (09:05)
[2023-11-12] MEDS: TAMSULOSIN HCL 0.4 MG CAPSULE PO (09:05)
[2023-11-12] MEDS: amLODIPine BESYLATE 5 MG TABLET PO (09:05)
[2023-11-12] MEDS: ATORVASTATIN 20 MG TABLET PO (09:05)
[2023-11-12] MEDS: FINASTERIDE 5 MG TABLET PO (09:05)
[2023-11-12] MEDS: METOPROLOL TARTRATE 12.5 MG TABLET PO ×2 (09:05→17:52)
[2023-11-12] MEDS: MONTELUKAST SODIUM 10 MG TABLET PO (09:05)
[2023-11-12] MEDS: APIXABAN 5 MG TABLET PO ×2 (09:05→20:26)
[2023-11-12 09:54] LABS: Influenza A QL RT-PCR Negative (Negative); Influenza B QL RT-PCR Negative (Negative); RSV RNA, RT-PCR Negative (Negative); SARS-CoV-2 RNA PCR Negative (Negative)
[2023-11-12] MEDS: KCL 20 MEQ/SW 100 ML 100 ML 50 MEQ IVPB (10:14)
[2023-11-12] MEDS: FUROSEMIDE INJ 40 MG/4 ML VIAL 20 MG IV PUSH (11:07)
[2023-11-12 12:02] LABS: NT Pro B Type Natriuretic Pept 2410 pg/mL (19.9-100)
--- NOTE | 2023-11-12 12:53 | P.PNPL_ITS ---
Progress Note: A&P Assessment and Plan (1) ILD (interstitial lung disease): Code(s): J84.9 - Interstitial pulmonary disease, unspecified Status: Acute Assessment and Plan: Diagnosed with a form of interstitial lung disease about 2 years ago, has not required treatment yet although he has discussed using a anti fibrotic with Dr. Veliz ([facility]), probably Ofev.? Patient says that he is hesitant mayela use of his underlying stomach problems.? He has not required oxygen at home. procalcitonin on 11/08/[address] angiogram of the chest on 11/03/2021 with mild to moderate right upper lobe and bibasilar peripheral based reticulations and ground-glass infiltrates with no honeycombing or bronchiectasis. chest x-ray 11/03/2021 showed small lung volumes with elevated right hemidiaphragm and right upper lobe and left lower lobe interstitial alveolar infiltrate. chest x-ray 02/14/2022 with small lung volumes with elevated right hemidiaphragm and right upper lobe and left lower lobe interstitial alveolar infiltrates unchanged from 11/03/2021. chest x-ray 11/08/2023 with small lung volumes, elevated right hemidiaphragm, increased interstitial alveolar infiltrates right upper lobe, left upper lobe and left lower lobe compared to 02/14/2022. 11/09: Critically ill today. Goal is to improve oxygenation; trying different O2 delivery systems. AirVo 45 L/min and 60% Start methylprednisolone 125 mg once, 60 mg IV q.6 hours; this is for possible acute exacerbation of ILD We are treating for possible CAP; he had COVID 5 her 6 weeks ago, has not returned to his baseline status.? He was treated with Paxlovid. Get records from his digital media representative, MARYAN Ramirez. Pt says he has not been on treatment yet, no O2, discussed Ofev with his doctor hestitant because he already has GI issues, has lost weight. HRCT- he may be having worsening ILD vs post COVID deterioration vs bacterial secondary infection after recent COVID vs cardiac pproblmes; mild increase in BNP, troponins. Echo reviewed. Urine antigens for pneumococcal and Legionella continue IV azithromycin and ceftriaxone Lab studies:? CHIKA, rheumatoid factor, these are screening for possible underlying autoimmune conditions that may be associated although Dr. Veliz has likely performed this workup. We will follow with you however I will not be with you in person TuesdayNovember 10. Please call me directly if you have questions. 11/11/2023: diffuse bilateral patchy ground-glass opacities right upper lobe, right lower lobe, left upper lobe, lingula and left lower lobe with relative sparing of the right middle lobe. there is mosaic attenuation and basilar bronchiectasis. There is no honeycombing, pleural effusions, masses. 11/12/23: overall patient states that he feels better. He is awake and in no respiratory distress. He says his cough is increased since he was admitted. He has minimal phlegm production which is no change. His white blood cell count is 19.9, his creatinine is 0.8. His last fever was 11/09 at 8:00 p.m.. Patient remains on high-flow nasal cannula 60 L and 90% FiO2 with saturations 91%. Chest x-ray shows small lung volumes, diffuse interstitial alveolar infiltrates worsened since chest x-ray on 11/08/2023. Repeat influenza, RSV and COVID RT PCR study negative today. BNP 2410 increased from 11/08/2023 at 2090. No reports of aspiration. Plan: Agree with treatment for possible interstitial lung disease exacerbation with Solu-Medrol 60 mg IV q.6 hours. continue high-flow nasal cannula 60 L and 90% FiO2 with goal saturation 90-94%. Wean as tolerated. Regarding other etiologies for his interstitial lung disease I will send serologies for
[2023-11-12 16:21] LABS: MRSA (PCR) NOT DETECTED (NOT DETECTE)
[2023-11-12 16:31] LABS: Procalcitonin 0.6 ng/mL
--- NOTE | 2023-11-12 18:09 | PM.IMPN ---
Progress Note: A&P Assessment and Plan (1) Pneumonia: Code(s): J18.9 - Pneumonia, unspecified organism Status: Acute (2) Acute hypoxic respiratory failure: Code(s): J96.01 - Acute respiratory failure with hypoxia Status: Acute (3) Hypertension: Code(s): I10 - Essential (primary) hypertension Status: Acute (4) H/O aortic valve replacement: Code(s): Z95.2 - Presence of prosthetic heart valve Status: Acute (5) Elevated troponin: Code(s): R77.8 - Other specified abnormalities of plasma proteins Status: Acute Plan Admit patient to medical unit under full inpatient status Patient has X-ray and clinical findings consistent with bilateral pneumonia Patient started on IV antibiotics in the form of Rocephin and Zithromax which we'll continue on the floor Follow-up on blood and sputum cultures sent from ER Patient with a progressively increasing oxygen needs He dropped his O2 sats to 70s with minimal ambulation Spoke with registered nurse surgical services and pulmonary consult given for evaluation and further treatment recommendations 11/10/2023 ... 10:00 p.m: Patient started on Airvo by pulmonary Pulmonary consult reviewed and appreciated Follow-up closely with pulmonary management recommendations Continue with the DuoNeb breathing treatments on the floor as needed Patient has minimally elevated cardiac enzymes which are flat and patient does not complain of any chest pain 2D echo with colorflow doppler ordered to evaluate cardiac structure and function which shows preserved left ventricular function with EF 65-70% Patient likely has minimally elevated cardiac enzymes due to myocardial demand ischemia caused by pneumonia Cardiology consult ordered for evaluation who evaluated the patient and do not recommend any cardiac workup 11/12/2023: Spoke with Pulmonary in detail. Patient has worsening interstitial lung disease. His chest x-ray was done which was significant worse white patches both lung wells. Patient likely has viral/bacterial pneumonia superimposed on interstitial lung disease. Spoke with patient in detail regarding transition from Airvo to BiPAP and possible intubation. Spoke with patient's POA, , and family at the bed-side in thorough detail. Code status discussed with the patient who wants to be full code. Discussed of intubation with both the patient and the family who are all agreeable. ? Patient seen and examined at bedside during my morning rounds ? Collaborated with patient's nurse at the bedside in detail and addressed all concerns ? Labs, electrolytes, radiology, investigations and test results reviewed ? Consult/Nursing/Ancilliary notes on the chart reviewed and appreciated ? Spoke with patient/family at the bedside and answered all the questions that they had Repeat labs in a.m. Electrolyte replacement as per protocol. Patient will be monitored very closely on the floor. Further recommendations as per the hospital course. Time Spent With Patient Time with patient: 25 - 35 minutes Subjective Date/time seen: 11/12/23 18:09 Interval history: Patient did okay on airvo since last night. This morning his O2 sats started dropping. Spoke with Pulmonary attending in detail on the floor. Patient being transitioned to BiPAP with possible intubation as needed. Spoke with both the patient and family at the bedside about progression of worsening interstitial lung disease. Review of Systems Review of Systems: 14 systems were reviewed with pertinent positives and negatives per HPI. Except as documented in the HPI/progress notes, all other systems were reviewed and are negative. All systems reviewed & are unremarkable except as noted in HPI and below Exam Narrative: PHYSICAL EXAMINATION: Vital signs: Please see the chart General physical exam: Obese gentleman, lying in bed, pleasant and cooperative with exam, appears tired and fatigued Head/eyes: Atraumatic, EOMI, P
[2023-11-12] MEDS: traZODone HCL 50 MG TABLET 200 MG PO (20:26)
[2023-11-12] MEDS: AZITHROMYCIN 500 MG/NS 250 ML 500 MG/250 ML BAG 250 MG IVPB (21:05)
[2023-11-12 21:06] LABS: HIV 1/2 Ab P24 Ag Result Negative (Negative)
[2023-11-13] VITALS (29 sets, daily range): BP systolic 97–140; BP diastolic 50–66; PULSE 59–112; RESP 20–36; TEMP 35.8–36.6; O2SAT 90–100
[2023-11-13] MEDS: methylPREDNISolone SOD SUCC 125 MG VIAL 60 MG IV PUSH ×4 (01:14→17:08)
[2023-11-13] MEDS: IPRATROPIUM 0.5 MG/ALBUTEROL SULFATE 2.5 MG AMPUL.NEB 3 ML INHALATION ×4 (01:28→21:45)
[2023-11-13 05:26] LABS: Creatine Kinase 85 U/L (55-170)
[2023-11-13 05:36] LABS: NT Pro B Type Natriuretic Pept 3400 pg/mL (19.9-100)
[2023-11-13] MEDS: LEVOTHYROXINE SODIUM 25 MCG TABLET PO (05:38)
[2023-11-13 05:48] LABS: Procalcitonin 0.3 ng/mL
[2023-11-13 07:46] LABS: Alveolar/Arterial O2 Gradient 584.8 mmHg; Base Excess ABG 5.6 mEq/l (+/-2.0); Fractional Inspired Oxygen 100 %; HCO3 ABG 31.6 mEq/l (22.0-26.0); Oxygen Content ABG 16.3 %vol (16.0-22.0); Oxygen Saturation ABG 95.1 % (95.0-100.0); Oxyhemoglobin 94.1 % THb (90.0-100.0); PO2 ABG 76.2 mmHg (80.0-100.0); PO2 FiO2 Ratio Arterial Blood 0.76 %; Total Hemoglobin 12.3 g/dL (12.0-18.0); pH ABG 7.401 (7.350-7.450)
[2023-11-13 07:47] LABS: Device NON-INVASIVE VENT; Modified Allen's Test Pass; Site Drawn LEFT RADIAL
[2023-11-13 07:48] LABS: Non-Invasive Expiratory Pressure 5 CMH2O; Non-Invasive Vent Rate 20 /MIN
--- NOTE | 2023-11-13 08:23 | PM.PNPUL ---
Progress Note: A&P Assessment and Plan (1) ILD (interstitial lung disease): Code(s): J84.9 - Interstitial pulmonary disease, unspecified Status: Acute Assessment and Plan: Diagnosed with a form of interstitial lung disease about 2 years ago, has not required treatment yet although he has discussed using a anti fibrotic with Dr. Veliz ([facility]), probably Ofev.? Patient says that he is hesitant because of his underlying stomach problems.? He has not required oxygen at home. procalcitonin on 11/08/[address] angiogram of the chest on 11/03/2021 with mild to moderate right upper lobe and bibasilar peripheral based reticulations and ground-glass infiltrates with no honeycombing or bronchiectasis. chest x-ray 11/03/2021 showed small lung volumes with elevated right hemidiaphragm and right upper lobe and left lower lobe interstitial alveolar infiltrate. chest x-ray 02/14/2022 with small lung volumes with elevated right hemidiaphragm and right upper lobe and left lower lobe interstitial alveolar infiltrates unchanged from 11/03/2021. chest x-ray 11/08/2023 with small lung volumes, elevated right hemidiaphragm, increased interstitial alveolar infiltrates right upper lobe, left upper lobe and left lower lobe compared to 02/14/2022. 11/09: Critically ill today. Goal is to improve oxygenation; trying different O2 delivery systems. AirVo 45 L/min and 60% Start methylprednisolone 125 mg once, 60 mg IV q.6 hours; this is for possible acute exacerbation of ILD We are treating for possible CAP; he had COVID 5 her 6 weeks ago, has not returned to his baseline status.? He was treated with Paxlovid. Get records from his operations recruiter, MARYAN Ramirez. Pt says he has not been on treatment yet, no O2, discussed Ofev with his doctor hestitant because he already has GI issues, has lost weight. HRCT- he may be having worsening ILD vs post COVID deterioration vs bacterial secondary infection after recent COVID vs cardiac pproblmes; mild increase in BNP, troponins. Echo reviewed. Urine antigens for pneumococcal and Legionella continue IV azithromycin and ceftriaxone Lab studies:? CHIKA, rheumatoid factor, these are screening for possible underlying autoimmune conditions that may be associated although Dr. Veliz has likely performed this workup. We will follow with you however I will not be with you in person TuesdayNovember 10. Please call me directly if you have questions. 11/11/2023: diffuse bilateral patchy ground-glass opacities right upper lobe, right lower lobe, left upper lobe, lingula and left lower lobe with relative sparing of the right middle lobe. there is mosaic attenuation and basilar bronchiectasis. There is no honeycombing, pleural effusions, masses. 11/12/23: overall patient states that he feels better. He is awake and in no respiratory distress. He says his cough is increased since he was admitted. He has minimal phlegm production which is no change. His white blood cell count is 19.9, his creatinine is 0.8. His last fever was 11/09 at 8:00 p.m.. Patient remains on high-flow nasal cannula 60 L and 90% FiO2 with saturations 91%. Chest x-ray shows small lung volumes, diffuse interstitial alveolar infiltrates worsened since chest x-ray on 11/08/2023. Repeat influenza, RSV and COVID RT PCR study negative today. BNP 2410 increased from 11/08/2023 at 2090. No reports of aspiration. Plan: Agree with treatment for possible interstitial lung disease exacerbation with Solu-Medrol 60 mg IV q.6 hours. continue high-flow nasal cannula 60 L and 90% FiO2 with goal saturation 90-94%. Wean as tolerated. Regarding other etiologies for his interstitial lung disease I will send serologies for autoimmune disease and connective tissue disorders: CHIKA screen that includes 11 different auto antibodies, an ANCA screen, a rheumatoid factor, anti CCP antibody, hypersensitivity pneumonitis panel, a CPK, an aldolase level, and myomarker 3 plus p
[2023-11-13] MEDS: FINASTERIDE 5 MG TABLET PO (08:29)
[2023-11-13] MEDS: guaiFENesin/DEXTROMETHORPHAN 10 ML UDC PO ×2 (08:29→17:08)
[2023-11-13] MEDS: amLODIPine BESYLATE 5 MG TABLET PO (08:30)
[2023-11-13] MEDS: TAMSULOSIN HCL 0.4 MG CAPSULE PO (08:30)
[2023-11-13] MEDS: ATORVASTATIN 20 MG TABLET PO (08:30)
[2023-11-13] MEDS: ASPIRIN 81 MG CHEWABLE TABLET PO (08:30)
[2023-11-13] MEDS: MONTELUKAST SODIUM 10 MG TABLET PO (08:31)
[2023-11-13] MEDS: METOPROLOL TARTRATE 12.5 MG TABLET PO ×2 (08:31→17:08)
[2023-11-13 09:36] LABS: Hematocrit 34.7 % (42.0-52.0); Hemoglobin 11.2 g/dL (14.0-18.0); Mean Corpuscular HGB Conc 32.3 g/dl (32-36); Mean Corpuscular Hemoglobin 29.8 pg (26-34); Mean Corpuscular Volume 92.3 fl (80-100); Platelet Count Result 279 k/mm3 (150-375); Red Blood Count 3.76 M/mm3 (4.6-6.20); Red Cell Distribution Width 13.2 % (11.5-14.5); White Blood Count 17.7 K/mm3 (4.5-10.0)
[2023-11-13] MEDS: MEROPENEM 1 GM/NS 100 ML 1 GM/100 ML BAG IVPB ×2 (09:44→20:05)
[2023-11-13 09:56] LABS: Anion Gap 1 mmol/L (8-16); Blood Urea Nitrogen 26 mg/dL (9-20); Calcium 8.8 mg/dL (8.4-10.2); Carbon Dioxide 35 mmol/L (22-30); Chloride 97 mmol/L (98-107); Estimated CRCL calculation 49 ml/min; Estimated Glomerular Filt Rate > 60; Glucose 268 mg/dL (65-110); Potassium 4.3 mmol/L (3.4-5.0); Sodium 133 mmol/L (137-145)
[2023-11-13 10:03] LABS: Band Neutrophils Percent 15 % (0-6); Lymphocytes Absolute Manual 0.53 K/mm3 (1.1-4.5); Monocytes Absolute Manual 0.35 K/mm3 (0.1-0.90); Monocytes Percent Manual 2 % (3-9); Neutrophils Absolute Manual 16.81 K/mm3 (1.3-6.7); Neutrophils Percent Manual 80 % (46-73); Platelet Estimate Adequate (Adequate); Total Cells Counted 100
[2023-11-13 10:04] LABS: Schistocytes None Seen
[2023-11-13] MEDS: levoFLOXacin 750 MG/D5W 150 ML 750 MG/150 ML BAG 100 MG IVPB (10:52)
--- NOTE | 2023-11-13 18:23 | PM.IMPN ---
Progress Note: A&P Assessment and Plan (1) Pneumonia: Code(s): J18.9 - Pneumonia, unspecified organism Status: Acute (2) Acute hypoxic respiratory failure: Code(s): J96.01 - Acute respiratory failure with hypoxia Status: Acute (3) Hypertension: Code(s): I10 - Essential (primary) hypertension Status: Acute (4) H/O aortic valve replacement: Code(s): Z95.2 - Presence of prosthetic heart valve Status: Acute (5) Elevated troponin: Code(s): R77.8 - Other specified abnormalities of plasma proteins Status: Acute Plan Admit patient to medical unit under full inpatient status Patient has X-ray and clinical findings consistent with bilateral pneumonia 11/13/2023: Patient started on IV antibiotics in the form of Rocephin and Zithromax which IV meropenem and Levaquin by Pulmonary for empiric broad-spectrum coverage Follow-up on blood and sputum cultures sent from ER WBC count remains elevated likely due to combination of pneumonia and steroids Patient continue to have progressively increasing oxygen needs since admission He dropped his O2 sats to 70s with minimal ambulation Spoke with linux vmware administrator and pulmonary consult given for evaluation and further treatment recommendations Patient has been any chest aggressively by Pulmonary by changing between BiPAP and AirVo Continue with the DuoNeb breathing treatments on the floor as needed Patient has minimally elevated cardiac enzymes which are flat and patient does not complain of any chest pain 11/13/2023: 2D echo with bubble study ordered by pulmonary Patient likely has minimally elevated cardiac enzymes due to myocardial demand ischemia caused by pneumonia 2D echo with color-flow Doppler is ordered to evaluate cardiac structure and function which shows preserved left ventricular function with EF 65-70% Cardiology consult ordered for evaluation who evaluated the patient and do not recommend any cardiac workup Pulmonary consult and recommendations reviewed, appreciated and agreed with Follow-up closely with pulmonary recommendations His long-term prognosis remains guarded 11/12/2023: Spoke with Pulmonary in detail. Patient has worsening interstitial lung disease. His chest x-ray was done which was significant worse white patches both lung wells. Patient likely has viral/bacterial pneumonia superimposed on interstitial lung disease. Spoke with patient in detail regarding transition from Airvo to BiPAP and possible intubation. Spoke with patient's POA, , and family at the bed-side in thorough detail. Code status discussed with the patient who wants to be full code. Discussed of intubation with both the patient and the family who are all agreeable. ? Patient seen and examined at bedside during my morning rounds ? Collaborated with patient's nurse at the bedside in detail and addressed all concerns ? Labs, electrolytes, radiology, investigations and test results reviewed ? Consult/Nursing/Ancilliary notes on the chart reviewed and appreciated ? Spoke with patient/family at the bedside and answered all the questions that they had Repeat labs in a.m. Electrolyte replacement as per protocol. Patient will be monitored very closely on the floor. Further recommendations as per the hospital course. Time Spent With Patient Time with patient: 15 - 25 minutes Subjective Date/time seen: 11/13/23 18:23 Interval history: Patient seen and examined at bedside. Still feels short of breath with minimal speaking. Patient had been transitioned from BiPAP to Airvo. Review of Systems Review of Systems: 14 systems were reviewed with pertinent positives and negatives per HPI. Except as documented in the HPI/progress notes, all other systems were reviewed and are negative. All systems reviewed & are unremarkable except as noted in HPI and below Exam Narrative: PHYSICAL EXAMINATION: Vital signs: Please see the chart General physical ex
[2023-11-13] MEDS: ALPRAZolam (*CRX) 0.5 MG TABLET PO (20:04)
[2023-11-13] MEDS: traZODone HCL 50 MG TABLET 200 MG PO (20:04)
[2023-11-13] MEDS: FUROSEMIDE 20 MG TABLET PO (21:07)
[2023-11-14] VITALS (29 sets, daily range): BP systolic 104–124; BP diastolic 48–58; PULSE 67–110; RESP 22–39; TEMP 36.3–36.6; O2SAT 92–99
[2023-11-14] MEDS: methylPREDNISolone SOD SUCC 125 MG VIAL 60 MG IV PUSH ×5 (01:46→23:49)
[2023-11-14] MEDS: IPRATROPIUM 0.5 MG/ALBUTEROL SULFATE 2.5 MG AMPUL.NEB 3 ML INHALATION ×4 (02:32→20:19)
[2023-11-14 04:17] LABS: Basophils Percent Auto 0.1 % (0.2-1.2); Hematocrit 33.6 % (42.0-52.0); Hemoglobin 10.8 g/dL (14.0-18.0); Immature Granulocyte Absolute 0.11 K/mm3 (0.00-0.031); Immature Granulocyte Percent A 0.8 % (0-0.5); Lymphocytes Absolute Auto 0.38 K/mm3 (0.9-3.2); Lymphocytes Percent Auto 2.6 % (18.3-44.2); Mean Corpuscular HGB Conc 32.1 g/dl (32-36); Mean Corpuscular Hemoglobin 29.6 pg (26-34); Mean Corpuscular Volume 92.1 fl (80-100); Mean Platelet Volume 10.7 fl (7.4-10.4); Monocytes Absolute Auto 0.4 K/mm3 (0.1-0.6); Monocytes Percent Auto 2.9 % (2.6-8.5); Neutrophils Absolute Auto 13.6 K/mm3 (1.3-6.7); Neutrophils Percent Auto 93.6 % (45.5-73.1); Platelet Count Result 251 k/mm3 (150-375); Red Blood Count 3.65 M/mm3 (4.6-6.20); White Blood Count 14.5 K/mm3 (4.5-10.0)
[2023-11-14 04:26] LABS: Anion Gap -1 mmol/L (8-16); Blood Urea Nitrogen 25 mg/dL (9-20); Calcium 8.4 mg/dL (8.4-10.2); Carbon Dioxide 36 mmol/L (22-30); Chloride 97 mmol/L (98-107); Estimated CRCL calculation 44 ml/min; Estimated Glomerular Filt Rate > 60; Glucose 287 mg/dL (65-110); Potassium 4.3 mmol/L (3.4-5.0); Sodium 132 mmol/L (137-145)
[2023-11-14] MEDS: LEVOTHYROXINE SODIUM 25 MCG TABLET PO (05:54)
--- NOTE | 2023-11-14 08:00 | ECHO_ITS ---
Patient Info Name: Reggie Ortiz Age: 88 years : 1935 Gender: Male Ht: 61 in Wt: 167 lbs BSA: 1.84 m2 HR: 83 bpm BP: 124 / 48 mmHg Heart Rhythm: Sinus Rhythm Technical Quality: Fair Exam Date: 11/14/2023 11:08 AM Exam Location: Echo Lab Exam Room: 231 Patient Status: Inpatient Admit Date: 11/10/2023 Staff Ordering Physician: Oj Mcdonald MD Laborer [employer]: Ioana Curry RDCS Attending Provider: Blake Meade MD Referring Physician: Harry VOGEL; Exam Type: CA echo limited w bubble study Study Info Indications - HYPOXEMIA R/O R/L SHUNT Limited two-dimensional transthoracic echocardiogram is performed with agitated saline. Contrast/Agitated Saline Contrast/Ag. Saline: Agitated Saline Amount: 16.00 ml Administered By: Letty Robins RDCS Existing IV Access: Yes IV Access Condition: patent with no signs of infiltration Summary 1. Limited examPerformed inApical four-chamber projection withAgitated saline contrast injection. 2. No evidence [id number] shunt was identified. Left Ventricle Left ventricular chamber dimension is normal. There is moderate concentric increased left ventricular wall thickness. Left Atria Left atrial chamber dimension is mildly enlarged. Report Signatures
[2023-11-14] MEDS: ASPIRIN 81 MG CHEWABLE TABLET PO (09:17)
[2023-11-14] MEDS: METOPROLOL TARTRATE 12.5 MG TABLET PO ×2 (09:17→17:37)
[2023-11-14] MEDS: amLODIPine BESYLATE 5 MG TABLET PO (09:18)
[2023-11-14] MEDS: FUROSEMIDE 20 MG TABLET PO ×2 (09:18→17:37)
[2023-11-14] MEDS: FINASTERIDE 5 MG TABLET PO (09:18)
[2023-11-14] MEDS: MONTELUKAST SODIUM 10 MG TABLET PO (09:18)
[2023-11-14] MEDS: ATORVASTATIN 20 MG TABLET PO (09:18)
[2023-11-14] MEDS: MEROPENEM 1 GM/NS 100 ML 1 GM/100 ML BAG IVPB ×2 (09:19→20:43)
[2023-11-14] MEDS: TAMSULOSIN HCL 0.4 MG CAPSULE PO (09:19)
[2023-11-14] MEDS: guaiFENesin/DEXTROMETHORPHAN 10 ML UDC PO (09:22)
--- NOTE | 2023-11-14 19:02 | PM.IMPN ---
Progress Note: A&P Assessment and Plan (1) Pneumonia: Code(s): J18.9 - Pneumonia, unspecified organism Status: Acute (2) Acute hypoxic respiratory failure: Code(s): J96.01 - Acute respiratory failure with hypoxia Status: Acute (3) Hypertension: Code(s): I10 - Essential (primary) hypertension Status: Acute (4) H/O aortic valve replacement: Code(s): Z95.2 - Presence of prosthetic heart valve Status: Acute (5) Elevated troponin: Code(s): R77.8 - Other specified abnormalities of plasma proteins Status: Acute Plan Admit patient to medical unit under full inpatient status Patient has X-ray and clinical findings consistent with bilateral pneumonia 11/13/2023: Patient started on IV antibiotics in the form of Rocephin and Zithromax which are switched to IV meropenem and Levaquin by Pulmonary for empiric broad-spectrum coverage Follow-up on blood and sputum cultures sent from ER WBC count remains elevated likely due to combination of pneumonia and steroids WBCcount is slowly downtrending and 14.5 today Patient has daily portable chest x-rays ordered by pulmonary 11/14/2023: Chest x-ray from today shows mild interval improvement in aeration of both lungs Checks x-ray PA and lateral ordered in am if patient is able to be transported down Patient continue to have progressively increasing oxygen needs since admission He dropped his O2 sats to 70s with minimal ambulation Spoke with caddy and pulmonary consult given for evaluation and further treatment recommendations Patient has been any chest aggressively by Pulmonary by changing between BiPAP and AirVo Continue with the DuoNeb breathing treatments on the floor as needed Patient has minimally elevated cardiac enzymes which are flat and patient does not complain of any chest pain 11/13/2023: 2D echo with bubble study ordered by pulmonary Patient likely has minimally elevated cardiac enzymes due to myocardial demand ischemia caused by pneumonia 2D echo with color-flow Doppler is ordered to evaluate cardiac structure and function which shows preserved left ventricular function with EF 65-70% Cardiology consult ordered for evaluation who evaluated the patient and do not recommend any cardiac workup Pulmonary consult and recommendations reviewed, appreciated and agreed with Follow-up closely with pulmonary recommendations His long-term prognosis remains guarded 11/12/2023 ... Patient & Family discussion: Spoke with Pulmonary in detail. Patient has worsening interstitial lung disease. His chest x-ray was done which was significant worse white patches both lung wells. Patient likely has viral/bacterial pneumonia superimposed on interstitial lung disease. Spoke with patient in detail regarding transition from Airvo to BiPAP and possible intubation. Spoke with patient's POA, , and family at the bed-side in thorough detail. Code status discussed with the patient who wants to be full code. Discussed endotracheal intubation with both the patient and the family who are all agreeable, if needed. ? Patient seen and examined at bedside during my morning rounds ? Collaborated with patient's nurse at the bedside in detail and addressed all concerns ? Labs, electrolytes, radiology, investigations and test results reviewed ? Consult/Nursing/Ancilliary notes on the chart reviewed and appreciated ? Spoke with patient/family at the bedside and answered all the questions that they had Repeat labs in a.m. Electrolyte replacement as per protocol. Patient will be monitored very closely on the floor. Further recommendations as per the hospital course. I am signing off. Patient's medical care will be taken over by my covering hospitalist attending in am. Time Spent With Patient Time with patient: 15 - 25 minutes Subjective Date/time seen: 11/14/23 19:02 Interval history: Patient lying in bed during my morning rounds. He is feeling a little bet
[2023-11-14] MEDS: ALPRAZolam (*CRX) 0.5 MG TABLET PO (20:44)
[2023-11-14] MEDS: traZODone HCL 50 MG TABLET 200 MG PO (20:44)
[2023-11-15] VITALS (24 sets, daily range): BP systolic 100–138; BP diastolic 47–61; PULSE 69–96; RESP 16–24; TEMP 36.1–36.9; O2SAT 91–98
[2023-11-15] MEDS: IPRATROPIUM 0.5 MG/ALBUTEROL SULFATE 2.5 MG AMPUL.NEB 3 ML INHALATION ×4 (03:23→20:21)
[2023-11-15 05:11] LABS: Basophils Percent Auto 0.1 % (0.2-1.2); Hematocrit 32.7 % (42.0-52.0); Hemoglobin 10.6 g/dL (14.0-18.0); Immature Granulocyte Absolute 0.07 K/mm3 (0.00-0.031); Immature Granulocyte Percent A 0.5 % (0-0.5); Lymphocytes Absolute Auto 0.63 K/mm3 (0.9-3.2); Lymphocytes Percent Auto 4.8 % (18.3-44.2); Mean Corpuscular HGB Conc 32.4 g/dl (32-36); Mean Corpuscular Hemoglobin 29.9 pg (26-34); Mean Corpuscular Volume 92.4 fl (80-100); Mean Platelet Volume 10.8 fl (7.4-10.4); Monocytes Absolute Auto 0.3 K/mm3 (0.1-0.6); Neutrophils Absolute Auto 12.2 K/mm3 (1.3-6.7); Neutrophils Percent Auto 92.6 % (45.5-73.1); Platelet Count Result 255 k/mm3 (150-375); Red Blood Count 3.54 M/mm3 (4.6-6.20); Red Cell Distribution Width 13.1 % (11.5-14.5); White Blood Count 13.2 K/mm3 (4.5-10.0)
[2023-11-15] MEDS: methylPREDNISolone SOD SUCC 125 MG VIAL 60 MG IV PUSH ×3 (05:15→17:38)
[2023-11-15] MEDS: LEVOTHYROXINE SODIUM 25 MCG TABLET PO (05:15)
[2023-11-15 05:49] LABS: Blood Urea Nitrogen 25 mg/dL (9-20); Calcium 8.1 mg/dL (8.4-10.2); Carbon Dioxide > 40 mmol/L (22-30); Chloride 97 mmol/L (98-107); Estimated CRCL calculation 49 ml/min; Estimated Glomerular Filt Rate > 60; Glucose 262 mg/dL (65-110); Potassium 4.3 mmol/L (3.4-5.0); Sodium 131 mmol/L (137-145)
[2023-11-15] MEDS: FUROSEMIDE 20 MG TABLET PO ×2 (09:20→17:38)
[2023-11-15] MEDS: ATORVASTATIN 20 MG TABLET PO (09:21)
[2023-11-15] MEDS: ASPIRIN 81 MG CHEWABLE TABLET PO (09:21)
[2023-11-15] MEDS: MONTELUKAST SODIUM 10 MG TABLET PO (09:21)
[2023-11-15] MEDS: amLODIPine BESYLATE 5 MG TABLET PO (09:21)
[2023-11-15] MEDS: METOPROLOL TARTRATE 12.5 MG TABLET PO ×2 (09:21→17:35)
[2023-11-15] MEDS: FINASTERIDE 5 MG TABLET PO (09:22)
[2023-11-15] MEDS: MEROPENEM 1 GM/NS 100 ML 1 GM/100 ML BAG IVPB ×2 (09:24→21:05)
[2023-11-15] MEDS: TAMSULOSIN HCL 0.4 MG CAPSULE PO (09:29)
[2023-11-15] MEDS: levoFLOXacin 750 MG/D5W 150 ML 750 MG/150 ML BAG 100 MG IVPB (10:02)
--- NOTE | 2023-11-15 13:38 | PCOTNOTE ---
The patient treatment was not able to be completed. Patient just got back in bed from being to tired sitting up. Will plan to continue treatment per plan of care.
--- NOTE | 2023-11-15 14:09 | PM.IMPN ---
Progress Note: A&P Assessment and Plan (1) Pneumonia: Code(s): J18.9 - Pneumonia, unspecified organism Status: Acute (2) Acute hypoxic respiratory failure: Code(s): J96.01 - Acute respiratory failure with hypoxia Status: Acute (3) Hypertension: Code(s): I10 - Essential (primary) hypertension Status: Acute (4) H/O aortic valve replacement: Code(s): Z95.2 - Presence of prosthetic heart valve Status: Acute (5) Elevated troponin: Code(s): R77.8 - Other specified abnormalities of plasma proteins Status: Acute Plan 88-year-old male patient with a past medical history of hyperlipidemia chronic hypertension pulmonary hypertension insomnia who came to the emergency room complaining of shortness of breath 1. Acute hypoxic respiratory failure: Continue with heated high-flow O2 support Pulmonary following Continue with DuoNebs Continue with levofloxacin, meropenem next item continue with Solu-Medrol Follow-up chest x-ray Slowly improving leukocytosis Continue with Lasix Echocardiogram showed preserved EF of 65-70% Appreciate cardiology help, no cardiac workup was recommended 2. Hypertension: Continue with Norvasc 3. History of hypothyroidism continue with levothyroxine 4. Code status: Full 5. DVT prophylaxis: On Eliquis 6. Disposition: Pending improvement Time Spent With Patient Time with patient: 15 - 25 minutes Subjective Date/time seen: 11/15/23 14:09 Interval history: Continues to be on heated high-flow oxygen support Review of Systems Review of Systems: 14 systems were reviewed with pertinent positives and negatives per HPI. Except as documented in the HPI/progress notes, all other systems were reviewed and are negative. Exam Narrative: General physical exam: Obese gentleman, lying in bed, pleasant and cooperative with exam, appears tired and fatigued Head/eyes: Atraumatic, EOMI, PERRLA ENT: Moist mucous membranes, nasal passages clear Neck: Supple, full range of motion, trachea midline CVS: S1 + S2, regular rate and rhythm, no murmurs Respiratory: Bilaterally poor air entry in both lung wells, mild B/L crackles, symmetric chest expansion, +++ scattered bilateral rhonchi, + AirVo in place Abdomen: Soft, non-tender, bowel sounds +ve, no organomegaly Extremities: No clubbing, no cyanosis, no edema, no calf tenderness Musculoskeletal: Moves all, decreased range of motion, no muscle spasms Skin: Warm, dry, no jaundice, no cyanosis Neurological: Awake, alert, oriented x 3, cranial nerves II-XII intact, no focal neurological deficits Psychiatric: Normal mood, non suicidal Objective Data Vital Signs Vital Signs: Vital Signs - 24 hr 11/14/23 14:39 11/14/23 14:42 11/14/23 14:46 Temperature Pulse Rate 92 94 Respiratory Rate 24 H 24 H Blood Pressure Pulse Oximetry 93 Oxygen Delivery High Flow Nasal Cannula Oxygen Flow Rate 60 Fraction of Inspired Oxygen 100 11/14/23 16:00 11/14/23 16:00 11/14/23 17:37 Temperature Pulse Rate 84 93 Respiratory Rate Blood Pressure Pulse Oximetry 96 Oxygen Delivery High Flow Nasal Cannula Oxygen Flow Rate 60 Fraction of Inspired Oxygen 100 11/14/23 18:00 11/14/23 16:00 11/14/23 19:52 Temperature 97.4 F L 97.8 F Pulse Rate 91 86 93 Respiratory Rate 24 H 22 H Blood Pressure 104/50 L 121/51 L Pulse Oximetry 97 93 Oxygen Delivery Oxygen Flow Rate Fraction of Inspired Oxygen 11/14/23 20:19 11/14/23 20:19 11/14/23 20:27 Temperature Pulse Rate 87 86 Respiratory Rate 22 H 22 H Blood Pressure Pulse Oximetry 95 Oxygen Delivery High Flow Nasal Cannula Oxygen Flow Rate 60 Fraction of Inspired Oxygen 100 11/14/23 20:00 11/14/23 20:00 11/14/23 22:00 Temperature Pulse Rate 92 82 Respiratory Rate Blood Pressure Pulse Oximetry 95 Oxygen Delivery High Flow Nasal Cannula Oxygen Flow Rate 60
[2023-11-15] MEDS: ACETAMINOPHEN 325 MG TABLET 650 MG PO (14:21)
[2023-11-15 19:51] LABS: Pneumococcal Antigen Urine Not Detected (Not Detected)
[2023-11-15] MEDS: ALPRAZolam (*CRX) 0.5 MG TABLET PO (21:05)
[2023-11-15] MEDS: traZODone HCL 50 MG TABLET 200 MG PO (21:05)
[2023-11-16] VITALS (27 sets, daily range): BP systolic 112–130; BP diastolic 53–62; PULSE 64–91; RESP 19–23; TEMP 36.1–36.8; O2SAT 90–96
[2023-11-16] MEDS: methylPREDNISolone SOD SUCC 125 MG VIAL 60 MG IV PUSH ×4 (01:28→18:11)
[2023-11-16 01:47] LABS: Legionella pneumophila Ag Ur Not Detected (Not Detected)
[2023-11-16] MEDS: IPRATROPIUM 0.5 MG/ALBUTEROL SULFATE 2.5 MG AMPUL.NEB 3 ML INHALATION ×4 (01:52→21:18)
[2023-11-16 05:10] LABS: Basophils Percent Auto 0.2 % (0.2-1.2); Hematocrit 33.2 % (42.0-52.0); Hemoglobin 10.7 g/dL (14.0-18.0); Immature Granulocyte Absolute 0.08 K/mm3 (0.00-0.031); Immature Granulocyte Percent A 0.6 % (0-0.5); Lymphocytes Absolute Auto 0.78 K/mm3 (0.9-3.2); Lymphocytes Percent Auto 6.2 % (18.3-44.2); Mean Corpuscular HGB Conc 32.2 g/dl (32-36); Mean Corpuscular Hemoglobin 29.4 pg (26-34); Mean Corpuscular Volume 91.2 fl (80-100); Monocytes Absolute Auto 0.3 K/mm3 (0.1-0.6); Monocytes Percent Auto 2.6 % (2.6-8.5); Neutrophils Absolute Auto 11.5 K/mm3 (1.3-6.7); Neutrophils Percent Auto 90.4 % (45.5-73.1); Platelet Count Result 253 k/mm3 (150-375); Red Blood Count 3.64 M/mm3 (4.6-6.20); Red Cell Distribution Width 12.9 % (11.5-14.5); White Blood Count 12.7 K/mm3 (4.5-10.0)
[2023-11-16 05:17] LABS: Anion Gap -2 mmol/L (8-16); Blood Urea Nitrogen 26 mg/dL (9-20); Carbon Dioxide 38 mmol/L (22-30); Chloride 95 mmol/L (98-107); Estimated CRCL calculation 41 ml/min; Estimated Glomerular Filt Rate > 60; Glucose 237 mg/dL (65-110); Potassium 4.2 mmol/L (3.4-5.0); Sodium 131 mmol/L (137-145)
[2023-11-16 05:43] LABS: Platelet Estimate Adequate (Adequate)
[2023-11-16 05:44] LABS: Anisocytosis 1+; Hypochromasia 1+; Ovalocytes 1+; Schistocytes None Seen
[2023-11-16] MEDS: LEVOTHYROXINE SODIUM 25 MCG TABLET PO (05:51)
[2023-11-16] MEDS: guaiFENesin/DEXTROMETHORPHAN 10 ML UDC PO (06:02)
[2023-11-16] MEDS: TAMSULOSIN HCL 0.4 MG CAPSULE PO (09:39)
[2023-11-16] MEDS: amLODIPine BESYLATE 5 MG TABLET PO (09:39)
[2023-11-16] MEDS: MONTELUKAST SODIUM 10 MG TABLET PO (09:39)
[2023-11-16] MEDS: FUROSEMIDE 20 MG TABLET PO ×2 (09:39→18:11)
[2023-11-16] MEDS: ATORVASTATIN 20 MG TABLET PO (09:39)
[2023-11-16] MEDS: METOPROLOL TARTRATE 12.5 MG TABLET PO ×2 (09:40→18:10)
[2023-11-16] MEDS: FINASTERIDE 5 MG TABLET PO (09:40)
[2023-11-16] MEDS: ASPIRIN 81 MG CHEWABLE TABLET PO (09:45)
[2023-11-16] MEDS: MEROPENEM 1 GM/NS 100 ML 1 GM/100 ML BAG IVPB (09:46)
[2023-11-16 14:20] LABS: Mycoplasma IgM Antibody Titer 72 U/mL (<770)
--- NOTE | 2023-11-16 18:31 | PM.IMPN ---
Progress Note: A&P Assessment and Plan (1) Pneumonia: Code(s): J18.9 - Pneumonia, unspecified organism Status: Acute (2) Acute hypoxic respiratory failure: Code(s): J96.01 - Acute respiratory failure with hypoxia Status: Acute (3) Hypertension: Code(s): I10 - Essential (primary) hypertension Status: Acute (4) H/O aortic valve replacement: Code(s): Z95.2 - Presence of prosthetic heart valve Status: Acute (5) Elevated troponin: Code(s): R77.8 - Other specified abnormalities of plasma proteins Status: Acute Plan Admit patient to medical unit under full inpatient status Patient has X-ray and clinical findings consistent with bilateral pneumonia 11/13/2023: Patient started on IV antibiotics in the form of Rocephin and Zithromax which are switched to IV meropenem and Levaquin by Pulmonary for empiric broad-spectrum coverage 11/16/2023: IV Meropenem switched to IV Cefepime as per ID pharmacist collaboration with Pulmonary Follow-up on blood and sputum cultures sent from ER WBC count remains elevated likely due to combination of pneumonia and steroids WBCcount is slowly downtrending and 12.7 today Patient has daily portable chest x-rays ordered by pulmonary showing mild interval improvement in aeration of both lungs Checks x-ray PA and lateral ordered in am if patient is able to be transported down Patient continue to have progressively increasing oxygen needs since admission He dropped his O2 sats to 70s with minimal ambulation Spoke with gear machine operator and pulmonary consult given for evaluation and further treatment recommendations Patient has been any chest aggressively by Pulmonary by changing between BiPAP and AirVo Continue with the DuoNeb breathing treatments on the floor as needed Patient has minimally elevated cardiac enzymes which are flat and patient does not complain of any chest pain 11/13/2023: 2D echo with bubble study ordered by pulmonary which ruled out any evidence of [id number] shunt Patient likely has minimally elevated cardiac enzymes due to myocardial demand ischemia caused by pneumonia 2D echo with color-flow Doppler is ordered to evaluate cardiac structure and function which shows preserved left ventricular function with EF 65-70% Cardiology consult ordered for evaluation who evaluated the patient and do not recommend any cardiac workup Pulmonary consult and recommendations reviewed, appreciated and agreed with Follow-up closely with pulmonary recommendations His long-term prognosis remains guarded 11/12/2023 ... Patient & Family discussion: Spoke with Pulmonary in detail. Patient has worsening interstitial lung disease. His chest x-ray was done which was significant worse white patches both lung wells. Patient likely has viral/bacterial pneumonia superimposed on interstitial lung disease. Spoke with patient in detail regarding transition from Airvo to BiPAP and possible intubation. Spoke with patient's POA, , and family at the bed-side in thorough detail. Code status discussed with the patient who wants to be full code. Discussed endotracheal intubation with both the patient and the family who are all agreeable, if needed. ? Patient seen and examined at bedside during my morning rounds ? Collaborated with patient's nurse at the bedside in detail and addressed all concerns ? Labs, electrolytes, radiology, investigations and test results reviewed ? Consult/Nursing/Ancilliary notes on the chart reviewed and appreciated ? Spoke with patient/family at the bedside and answered all the questions that they had Repeat labs in a.m. Electrolyte replacement as per protocol. Patient will be monitored very closely on the floor. Further recommendations as per the hospital course. I am signing off. Patient's medical care will be taken over by my covering hospitalist attending in am. Time Spent With Patient Time with patient: 15 - 25 minutes Subjective Date/time seen
[2023-11-16] MEDS: FLUTICASONE PROPIONATE 0.05% NA SPR 16 GM BTL (*BKC) 1 SPRAY NASAL (20:49)
[2023-11-16] MEDS: traZODone HCL 50 MG TABLET 200 MG PO (20:49)
[2023-11-16] MEDS: ALPRAZolam (*CRX) 0.5 MG TABLET PO (20:49)
[2023-11-16] MEDS: CEFEPIME 2 GM/NS 50 ML 2 GM/50 ML BAG IVPB (20:49)
[2023-11-16 21:06] LABS: Anti Cyclic Citrullinated Pept <16 Units (<20)
[2023-11-16 23:43] LABS: Adenovirus DNA Not Detected (Not Detected); Chlamydophila pneumoniae Not Detected (Not Detected); Coronavirus 229E Not Detected (Not Detected); Coronavirus HKU1 Not Detected (Not Detected); Coronavirus NL63 Not Detected (Not Detected); Coronavirus OC43 Not Detected (Not Detected); Human Metapneumovirus Not Detected (Not Detected); Human Parainfluenza Virus 1 Not Detected (Not Detected); Human Parainfluenza Virus 2 Not Detected (Not Detected); Human Parainfluenza Virus 3 Not Detected (Not Detected); Human Parainfluenza Virus 4 Not Detected (Not Detected); Human RSV B Not Detected (Not Detected); Influenza A Not Detected (Not Detected); Influenza B Not Detected (Not Detected); Mycoplasma pneumoniae Not Detected (Not Detected); Rhinovirus/Enterovirus Not Detected (Not Detected)
[2023-11-17] VITALS (28 sets, daily range): BP systolic 108–130; BP diastolic 49–70; PULSE 68–92; RESP 12–26; TEMP 36.1–36.5; O2SAT 89–96
[2023-11-17] MEDS: methylPREDNISolone SOD SUCC 125 MG VIAL 60 MG IV PUSH (00:17)
[2023-11-17] MEDS: IPRATROPIUM 0.5 MG/ALBUTEROL SULFATE 2.5 MG AMPUL.NEB 3 ML INHALATION ×4 (04:08→20:23)
[2023-11-17 05:08] LABS: Basophils Percent Auto 0.1 % (0.2-1.2); Hematocrit 37.7 % (42.0-52.0); Hemoglobin 12.2 g/dL (14.0-18.0); Immature Granulocyte Absolute 0.15 K/mm3 (0.00-0.031); Immature Granulocyte Percent A 1.1 % (0-0.5); Lymphocytes Percent Auto 7.8 % (18.3-44.2); Mean Corpuscular HGB Conc 32.4 g/dl (32-36); Mean Corpuscular Hemoglobin 29.6 pg (26-34); Mean Corpuscular Volume 91.5 fl (80-100); Mean Platelet Volume 10.9 fl (7.4-10.4); Monocytes Absolute Auto 0.4 K/mm3 (0.1-0.6); Monocytes Percent Auto 2.7 % (2.6-8.5); Neutrophils Absolute Auto 12.4 K/mm3 (1.3-6.7); Neutrophils Percent Auto 88.3 % (45.5-73.1); Platelet Count Result 290 k/mm3 (150-375); Red Blood Count 4.12 M/mm3 (4.6-6.20); Red Cell Distribution Width 12.9 % (11.5-14.5); White Blood Count 14.1 K/mm3 (4.5-10.0)
[2023-11-17 05:23] LABS: Anion Gap -2 mmol/L (8-16); Blood Urea Nitrogen 30 mg/dL (9-20); Calcium 8.1 mg/dL (8.4-10.2); Carbon Dioxide 37 mmol/L (22-30); Chloride 93 mmol/L (98-107); Estimated CRCL calculation 49 ml/min; Estimated Glomerular Filt Rate > 60; Glucose 266 mg/dL (65-110); Potassium 3.9 mmol/L (3.4-5.0); Sodium 128 mmol/L (137-145)
[2023-11-17] MEDS: methylPREDNISolone SOD SUCC 125 MG VIAL 40 MG IV PUSH ×3 (05:50→21:13)
[2023-11-17] MEDS: LEVOTHYROXINE SODIUM 25 MCG TABLET PO (05:51)
--- NOTE | 2023-11-17 08:40 | PCOTNOTE ---
Patient out of the room at this time. Patient down having a test. Will check back at a later time.
--- NOTE | 2023-11-17 09:13 | PCRCNOTE ---
Addendum entered by Faviola Serrano, ELECTRONICS MECHANIC APPRENTICE 11/17/23 09:14: Time was 11/17/2023 at 0843. Original Note: RT placed patient on [facility] for transport to [facility]. Patient's SpO2 remained 90%-93%.
[2023-11-17] MEDS: ASPIRIN 81 MG CHEWABLE TABLET PO (10:21)
[2023-11-17] MEDS: MONTELUKAST SODIUM 10 MG TABLET PO (10:21)
[2023-11-17] MEDS: amLODIPine BESYLATE 5 MG TABLET PO (10:21)
[2023-11-17] MEDS: FINASTERIDE 5 MG TABLET PO (10:21)
[2023-11-17] MEDS: FUROSEMIDE 20 MG TABLET PO ×2 (10:21→17:39)
[2023-11-17] MEDS: ATORVASTATIN 20 MG TABLET PO (10:21)
[2023-11-17] MEDS: METOPROLOL TARTRATE 12.5 MG TABLET PO ×2 (10:22→17:39)
[2023-11-17] MEDS: TAMSULOSIN HCL 0.4 MG CAPSULE PO (10:22)
[2023-11-17] MEDS: CEFEPIME 2 GM/NS 50 ML 2 GM/50 ML BAG IVPB ×2 (10:23→21:14)
[2023-11-17] MEDS: FLUTICASONE PROPIONATE 0.05% NA SPR 16 GM BTL (*BKC) 1 SPRAY NASAL (10:23)
[2023-11-17] MEDS: levoFLOXacin 750 MG/D5W 150 ML 750 MG/150 ML BAG 100 MG IVPB (10:24)
--- NOTE | 2023-11-17 11:01 | PCNWS ---
Weekly nutritional screen. Patient is tolerating current heart healthy diet with adequate intake 100%. No weight loss reported. No nutritional needs at this time.
--- NOTE | 2023-11-17 14:14 | PM.IMPN ---
Progress Note: A&P Assessment and Plan (1) Pneumonia: Code(s): J18.9 - Pneumonia, unspecified organism Status: Acute (2) Acute hypoxic respiratory failure: Code(s): J96.01 - Acute respiratory failure with hypoxia Status: Acute (3) Hypertension: Code(s): I10 - Essential (primary) hypertension Status: Acute (4) H/O aortic valve replacement: Code(s): Z95.2 - Presence of prosthetic heart valve Status: Acute (5) Elevated troponin: Code(s): R77.8 - Other specified abnormalities of plasma proteins Status: Acute Plan 88-year-old male patient with a past medical history of hyperlipidemia chronic hypertension pulmonary hypertension insomnia who came to the emergency room complaining of shortness of breath 1. Acute hypoxic respiratory failure: Continue with heated high-flow O2 support Pulmonary following Continue with DuoNebs Continue with levofloxacin, meropenem next item continue with Solu-Medrol Slowly improving leukocytosis Continue with Lasix Echocardiogram showed preserved EF of 65-70% Appreciate cardiology help, no cardiac workup was recommended 2. Hypertension: Continue with Norvasc 3. History of hypothyroidism continue with levothyroxine 4. Code status: DNR 5. DVT prophylaxis: On Eliquis 6. Disposition: Patient and family has decided for home with hospice care. Hospice agency has been contacted. A bit equipment to be delivered. Anticipate discharge tomorrow morning Time Spent With Patient Time with patient: 15 - 25 minutes Subjective Date/time seen: 11/17/23 14:14 Interval history: Acute events overnight Review of Systems Review of Systems: 14 systems were reviewed with pertinent positives and negatives per HPI. Except as documented in the HPI/progress notes, all other systems were reviewed and are negative. Exam Narrative: General physical exam: Obese gentleman, lying in bed, pleasant and cooperative with exam, appears tired and fatigued Head/eyes: Atraumatic, EOMI, PERRLA ENT: Moist mucous membranes, nasal passages clear Neck: Supple, full range of motion, trachea midline CVS: S1 + S2, regular rate and rhythm, no murmurs Respiratory: Bilaterally poor air entry in both lung wells, mild B/L crackles, symmetric chest expansion, +++ scattered bilateral rhonchi, + AirVo in place Abdomen: Soft, non-tender, bowel sounds +ve, no organomegaly Extremities: No clubbing, no cyanosis, no edema, no calf tenderness Musculoskeletal: Moves all, decreased range of motion, no muscle spasms Skin: Warm, dry, no jaundice, no cyanosis Neurological: Awake, alert, oriented x 3, cranial nerves II-XII intact, no focal neurological deficits Psychiatric: Normal mood, non suicidal Objective Data Vital Signs Vital Signs: Vital Signs - 24 hr 11/16/23 14:16 11/16/23 16:00 11/16/23 16:00 Temperature 98.2 F Pulse Rate 78 88 Respiratory Rate 21 H Blood Pressure 112/55 L Pulse Oximetry 93 95 Oxygen Delivery High Flow Therapy with Na Oxygen Flow Rate 55 Fraction of Inspired Oxygen 90 11/16/23 16:00 11/16/23 18:10 11/16/23 19:53 Temperature 98.1 F Pulse Rate 81 71 Respiratory Rate 20 Blood Pressure 117/55 L Pulse Oximetry 90 92 Oxygen Delivery High Flow Therapy with Na Oxygen Flow Rate 55 Fraction of Inspired Oxygen 95 11/16/23 19:55 11/16/23 18:00 11/16/23 20:00 Temperature 98.1 F Pulse Rate 71 78 Respiratory Rate 20 Blood Pressure 117/55 L Pulse Oximetry 92 92 Oxygen Delivery High Flow Therapy with Na Oxygen Flow Rate 50 Fraction of Inspired Oxygen 90 11/16/23 21:21 11/16/23 21:23 11/16/23 21:28 Temperature Pulse Rate 76 77 Respiratory Rate 20 20 Blood Pressure Pulse Oximetry 96 Oxygen Delivery High Flow Therapy with Na Oxygen Flow Rate 55 Fraction of Inspired Oxygen 92 11/16/23 20:00 11/17/23 00:08 11/17/23 00:00 Temperature 97.5 F L Pulse Ra
[2023-11-17 14:24] LABS: ANCA Screen Negative (Negative)
--- NOTE | 2023-11-17 14:36 | PCOTNOTE ---
Per RN, Patient is going hospice and will not need therapy services.
--- NOTE | 2023-11-17 14:49 | PM.PNPUL ---
Progress Note: A&P Assessment and Plan (1) ILD (interstitial lung disease): Code(s): J84.9 - Interstitial pulmonary disease, unspecified Status: Acute Assessment and Plan: Diagnosed with a form of interstitial lung disease about 2 years ago, has not required treatment yet although he has discussed using a anti fibrotic with Dr. Veliz ([facility]), probably Ofev.? Patient says that he is hesitant because of his underlying stomach problems.? He has not required oxygen at home. procalcitonin on 11/08/[address] angiogram of the chest on 11/03/2021 with mild to moderate right upper lobe and bibasilar peripheral based reticulations and ground-glass infiltrates with no honeycombing or bronchiectasis. chest x-ray 11/03/2021 showed small lung volumes with elevated right hemidiaphragm and right upper lobe and left lower lobe interstitial alveolar infiltrate. chest x-ray 02/14/2022 with small lung volumes with elevated right hemidiaphragm and right upper lobe and left lower lobe interstitial alveolar infiltrates unchanged from 11/03/2021. chest x-ray 11/08/2023 with small lung volumes, elevated right hemidiaphragm, increased interstitial alveolar infiltrates right upper lobe, left upper lobe and left lower lobe compared to 02/14/2022. 11/09: Critically ill today. Goal is to improve oxygenation; trying different O2 delivery systems. AirVo 45 L/min and 60% Start methylprednisolone 125 mg once, 60 mg IV q.6 hours; this is for possible acute exacerbation of ILD We are treating for possible CAP; he had COVID 5 her 6 weeks ago, has not returned to his baseline status.? He was treated with Paxlovid. Get records from his environmental programs specialist, MARYAN Ramirez. Pt says he has not been on treatment yet, no O2, discussed Ofev with his doctor hestitant because he already has GI issues, has lost weight. HRCT- he may be having worsening ILD vs post COVID deterioration vs bacterial secondary infection after recent COVID vs cardiac problmes; mild increase in BNP, troponins. Echo reviewed. Urine antigens for pneumococcal and Legionella continue IV azithromycin and ceftriaxone Lab studies:? CHIKA, rheumatoid factor, these are screening for possible underlying autoimmune conditions that may be associated although Dr. Veliz has likely performed this workup. We will follow with you however I will not be with you in person TuesdayNovember 10. Please call me directly if you have questions. 11/11/2023: diffuse bilateral patchy ground-glass opacities right upper lobe, right lower lobe, left upper lobe, lingula and left lower lobe with relative sparing of the right middle lobe. there is mosaic attenuation and basilar bronchiectasis. There is no honeycombing, pleural effusions, masses. 11/12/23: overall patient states that he feels better. He is awake and in no respiratory distress. He says his cough is increased since he was admitted. He has minimal phlegm production which is no change. His white blood cell count is 19.9, his creatinine is 0.8. His last fever was 11/09 at 8:00 p.m.. Patient remains on high-flow nasal cannula 60 L and 90% FiO2 with saturations 91%. Chest x-ray shows small lung volumes, diffuse interstitial alveolar infiltrates worsened since chest x-ray on 11/08/2023. Repeat influenza, RSV and COVID RT PCR study negative today. BNP 2410 increased from 11/08/2023 at 2090. No reports of aspiration. Plan: Agree with treatment for possible interstitial lung disease exacerbation with Solu-Medrol 60 mg IV q.6 hours. continue high-flow nasal cannula 60 L and 90% FiO2 with goal saturation 90-94%. Wean as tolerated. Regarding other etiologies for his interstitial lung disease I will send serologies for autoimmune disease and connective tissue disorders: CHIKA screen that includes 11 different auto antibodies, an ANCA screen, a rheumatoid factor, anti CCP antibody, hypersensitivity pneumonitis panel, a CPK, an aldolase level, and myomarker 3 plus pr
[2023-11-17] MEDS: ALPRAZolam (*CRX) 0.5 MG TABLET PO (21:13)
[2023-11-17] MEDS: traZODone HCL 50 MG TABLET 200 MG PO (21:13)
[2023-11-18] VITALS (23 sets, daily range): BP systolic 111–143; BP diastolic 44–56; PULSE 69–90; RESP 18–28; TEMP 36.1–36.6; O2SAT 87–95
[2023-11-18] MEDS: IPRATROPIUM 0.5 MG/ALBUTEROL SULFATE 2.5 MG AMPUL.NEB 3 ML INHALATION ×3 (02:28→14:09)
[2023-11-18] MEDS: LEVOTHYROXINE SODIUM 25 MCG TABLET PO (05:57)
[2023-11-18] MEDS: methylPREDNISolone SOD SUCC 125 MG VIAL 40 MG IV PUSH (05:57)
[2023-11-18 07:27] LABS: NIL 0.02
[2023-11-18 07:29] LABS: Quantiferon TB Plus, 1T Negative
[2023-11-18] MEDS: TAMSULOSIN HCL 0.4 MG CAPSULE PO (08:51)
[2023-11-18] MEDS: MONTELUKAST SODIUM 10 MG TABLET PO (08:51)
[2023-11-18] MEDS: CEFEPIME 2 GM/NS 50 ML 2 GM/50 ML BAG IVPB (08:51)
[2023-11-18] MEDS: ATORVASTATIN 20 MG TABLET PO (08:52)
[2023-11-18] MEDS: ASPIRIN 81 MG CHEWABLE TABLET PO (08:52)
[2023-11-18] MEDS: amLODIPine BESYLATE 5 MG TABLET PO (08:52)
[2023-11-18] MEDS: FLUTICASONE PROPIONATE 0.05% NA SPR 16 GM BTL (*BKC) 1 SPRAY NASAL (08:52)
[2023-11-18] MEDS: METOPROLOL TARTRATE 12.5 MG TABLET PO (08:52)
[2023-11-18] MEDS: FUROSEMIDE 20 MG TABLET PO (08:52)
[2023-11-18] MEDS: FINASTERIDE 5 MG TABLET PO (08:52)
[2023-11-18] MEDS: guaiFENesin/DEXTROMETHORPHAN 10 ML UDC PO (08:54)
--- NOTE | 2023-11-18 09:16 | P.PNPL_ITS ---
Progress Note: A&P Assessment and Plan (1) ILD (interstitial lung disease): Code(s): J84.9 - Interstitial pulmonary disease, unspecified Status: Acute Assessment and Plan: Diagnosed with a form of interstitial lung disease about 2 years ago, has not required treatment yet although he has discussed using a anti fibrotic with Dr. Veliz ([facility]), probably Ofev.? Patient says that he is hesitant mayela use of his underlying stomach problems.? He has not required oxygen at home. procalcitonin on 11/08/[address] angiogram of the chest on 11/03/2021 with mild to moderate right upper lobe and bibasilar peripheral based reticulations and ground-glass infiltrates with no honeycombing or bronchiectasis. chest x-ray 11/03/2021 showed small lung volumes with elevated right hemidiaphragm and right upper lobe and left lower lobe interstitial alveolar infiltrate. chest x-ray 02/14/2022 with small lung volumes with elevated right hemidiaphragm and right upper lobe and left lower lobe interstitial alveolar infiltrates unchanged from 11/03/2021. chest x-ray 11/08/2023 with small lung volumes, elevated right hemidiaphragm, increased interstitial alveolar infiltrates right upper lobe, left upper lobe and left lower lobe compared to 02/14/2022. 11/09: Critically ill today. Goal is to improve oxygenation; trying different O2 delivery systems. AirVo 45 L/min and 60% Start methylprednisolone 125 mg once, 60 mg IV q.6 hours; this is for possible acute exacerbation of ILD We are treating for possible CAP; he had COVID 5 her 6 weeks ago, has not returned to his baseline status.? He was treated with Paxlovid. 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 Pt says he has not been on treatment yet, no O2, discussed Ofev with his doctor hestitant because he already has GI issues, has lost weight. HRCT- he may be having worsening ILD vs post COVID deterioration vs bacterial secondary infection after recent COVID vs cardiac problmes; mild increase in BNP, troponins. Echo reviewed. Urine antigens for pneumococcal and Legionella continue IV azithromycin and ceftriaxone Lab studies:? CHIKA, rheumatoid factor, these are screening for possible underlying autoimmune conditions that may be associated although Dr. Veliz has likely performed this workup. We will follow with you however I will not be with you in person TuesdayNovember 10. Please call me directly if you have questions. 11/11/2023: diffuse bilateral patchy ground-glass opacities right upper lobe, right lower lobe, left upper lobe, lingula and left lower lobe with relative sparing of the right middle lobe. there is mosaic attenuation and basilar bronchiectasis. There is no honeycombing, pleural effusions, masses. 11/12/23: overall patient states that he feels better. He is awake and in no respiratory distress. He says his cough is increased since he was admitted. He has minimal phlegm production which is no change. His white blood cell count is 19.9, his creatinine is 0.8. His last fever was 11/09 at 8:00 p.m.. Patient remains on high-flow nasal cannula 60 L and 90% FiO2 with saturations 91%. Chest x-ray shows small lung volumes, diffuse interstitial alveolar infiltrates worsened since chest x-ray on 11/08/2023. Repeat influenza, RSV and COVID RT PCR study negative today. BNP 2410 increased from 11/08/2023 at 2090. No reports of aspiration. Plan: Agree with treatment for possible interstitial lung disease exacerbation with Solu-Medrol 60 mg IV q.6 hours. continue high-flow nasal cannula 60 L and 90% FiO2 with goal saturation 90-94%. Wean as tolerated. Regarding other etiologies for his interstitial lung disease I will send serologies for
--- NOTE | 2023-11-18 14:49 | PM.DS ---
DS: Admitting Diagnosis Discharge Date November 18, 2023 Admitting Diagnosis Shortness of breath DS: Summary Hospital Course Hospital Course: This is a pleasant 88-year-old male with a past medical history hyperlipidemia, hypertension, pulmonary hypertension, interstitial lung disease insomnia who presents to [place] with a complaint of shortness of breath along with feeling weak and having a dry cough with a objective temperature of 102? F at home. During his admission he was treated for pneumonia and acute hypoxic respiratory failure, interstitial lung disease exacerbation. As the patient was requiring high-flow nasal cannula in spite of aggressive medical therapy, the family and patient decided to pursue hospice care. Therefore, on 11/18/2023 to home with hospice in stable condition. Medical supplies including a high-flow nasal cannula equipment has been provided to the home already. As such, the patient was DNR during his admission. Time Spent with Patient Time attestation: Total time spent providing and/or coordinating discharge services: Exam Const: General: cooperative, healthy appearing and comfortable Orientation/consciousness: oriented to person, oriented to place and oriented to time HENMT: Head: normal to inspection Ears: hearing grossly normal bilaterally Eyes: General: appearance normal, both eyes and all related structures Neck: Neck: normal visual inspection Chest: Chest palpation & inspection: normal inspection of the chest Resp: Effort & Inspection: normal respiratory effort and able to speak in complete sentences Auscultation: crackles, no rales, no rhonchi, no wheezes and lung sounds not diminished Cardio: Jugular venous distension: no JVD GI: Inspection: normal to inspection Skin: General skin exam: normal color Neuro: General: oriented to person, oriented to place and oriented to time Other: Patient is communicative, follows simple commands and is nonfocal. Extrem: General: normal to inspection Psych: Appearance: grossly normal DS: Data Data Completed and Pending Labs on day of discharge: Labs from last 24 hours 11/13/23 04:24 TB Test (QFT) Gold Plus Negative TB Test (QFT) Nil 0.02 TB Test Mitogen - Nil 2.38 TB Test Ag - Nil 1 0.00 TB Test Ag - Nil 2 0.00 Preliminary micro results at discharge 11/13/23 07:39 Blood Culture - Preliminary Blood 11/13/23 07:35 Blood Culture - Preliminary Blood Discharge Plan Discharge Attending physician on discharge: Jeannie Ramos Consulting providers: Cindy Churchill; Ivana Lorenzo Discharging Clinician: Jeannie Ramos Patient Disposition: Hospice - Home Activity: no preference Diet: as tolerated Stand Alone Forms: General Discharge Information Discharge Medications: Discontinued atorvastatin 20 mg tablet 20 mg PO DAILY trazodone 100 mg tablet 200 mg PO HS Rx Instructions: at bedtime amlodipine [Norvasc] 5 mg Tablet 5 mg PO QAM Qty: 30 0RF Eliquis 5 mg Tablet 5 mg PO Q12HR Qty: 60 0RF Hold Instructions: Resume on 12/29/21. If no signs of bleeding may start your Eliquis on the evening dose of / (Tuesday evening). benzonatate 100 mg capsule 200 mg PO PRN PRN (Reason: Cough) metformin 500 mg tablet 500 mg PO DAILY Rx Instructions: takes with breakfast albuterol sulfate 2.5 mg /3 mL (0.083 %) Solution For Nebulization 2.5 mg INHALATION Q6H PRN (Reason: Shortness Of Breath Or Wheezing) levothyroxine 25 mcg tablet 25 mcg PO DAILY tamsulosin 0.4 mg capsule 0.4 mg PO DAILY montelukast 10 mg tablet 10 mg PO DAILY Adult Aspirin 81 mg Tablet 81 mg PO DAILY fluticasone propionate 50 mcg/actuation spray,suspension 1 spray INTRANASAL DAILY Rx Instructions: one spray to each nostril finasteride 5 mg tablet 5 mg PO DAILY metoprolol tartrate 25 mg tablet 12
[2023-11-18 19:19] LABS: Aldolase 10.4 U/L (<=8.1)
[2023-11-20 11:32] LABS: Aspergillus fumigatus NEGATIVE (NEGATIVE)
[2023-11-21 18:42] LABS: JO-1 AB <11 SI (<11); MI-2 Alpha Ab <11 SI (<11); MI-2 Beta Ab <11 SI (<11); NXP-2 AB <11 SI (<11); TIF1 Gamma Ab <11 SI (<11)
== END 2023-11-18 18:07 | disposition hospice, home (50) | DRG 189 ==
LOC: ANHED 21:28 → ANHIMU 22:06
PROVIDERS: Family Medicine; Internal Medicine Critical Care Medicine; Internal Medicine Pulmonary Disease; Admitting Provider Internal Medicine Infectious Disease; Emergency Provider Emergency Medicine; PCP Internal Medicine; Visit Provider General Practice
DX: J96.01 Acute respiratory failure with hypoxia (principal); J18.9 Pneumonia, unspecified organism; E78.5 Hyperlipidemia, unspecified; E03.9 Hypothyroidism, unspecified; G47.00 Insomnia, unspecified; I10 Essential (primary) hypertension; I27.20 Pulmonary hypertension, unspecified; R77.8 Other specified abnormalities of plasma proteins; Z66 Do not resuscitate; Z95.2 Presence of prosthetic heart valve; Z79.01 Long term (current) use of anticoagulants; Z79.82 Long term (current) use of aspirin; Z79.84 Long term (current) use of oral hypoglycemic drugs; Z86.16 Personal history of COVID-19; Z20.822 Contact with and (suspected) exposure to COVID-19
CPT/HCPCS: 36415; 36600; 71045; 71046; 71250; 80048; 80053; 82085; 82550; 82805; 83605; 83690; 83735; 83880; 84100; 84145; 84182; 84484; 85025; 85610; 85730; 86036; 86038; 86200; 86430; 86480; 86703; 86738; 87040; 87070; 87205; 87385; 87449; 87633; 87637; 87641; 87899; 93005; 93308; 94002; 94003; 94640; 96361; 96365; 96366; 96375; 97110; 97161; 97162; 97165; 97530; 99285; A9270; C8929; G0378; G0432; J0456; J0692; J0696; J1940; J1956; J2185; J2930; J3480; J7030; Q9957